=== PATIENT | female | born 1950 | race African-American/Black ===

== ENCOUNTER 2017-07-16 08:58 | Outpatient (POV) | payer MEDICARE, MEDICAID, SELFPAY | END 2017-07-16 13:56 | disposition home or self-care (01) | PROVIDERS: Visit Provider Podiatrist | DX: B35.1 Tinea unguium (principal); L60.2 Onychogryphosis | CPT/HCPCS: 99212; G0127 ==

== ENCOUNTER → 2017-11-14 07:59 | Outpatient (CLI) | payer MEDICARE, MEDICAID, SELFPAY ==
--- NOTE | 2017-11-14 08:10 | CA_ITS ---
PROCEDURE: 2-D M-mode and color Doppler study INDICATIONS FOR THE TEST: Chest pain COPD Heart Murmur+ Tobacco Smoking Palpitations Fatigue Syncope Edema+ Hypertension Diabetes Mellitus Rheumatic Fever SOB+FRANKLIN Obesity Hyperlipidemia Family History HD Additional History PATIENT INFORMATION HEIGHT:67 WEIGHT:220 GENDER: Female B/P:111/68 2-D/M-MODE INTERPRETATION: 2-D MEASUREMENTS OBSERVED VALUES IN CMS Right Ventricular Dimension (RVDd) 1.8 Interventricular Septum (Thickness)(IVsd) 1.0 Left Ventricular Internal Dimensions(LVIDd) 4.9 Left Ventricular Posterior Wall (Thickness)(LVPWd) 1.1 Aortic Root 3.7 Aortic Cusp Separation 2.2 Left Atrial Dimensions (LAD) 3.6 2D 1. Technically difficult study because of the patient's factor and poor acoustic windows 2. The left atrium is mildly enlarged, left ventricle is normal size, left ventricle wall thickness is upper limit of the normal, there is preserved left ventricular systolic function, visually estimated ejection fraction 55% with no obvious regional wall motion abnormality. 3. The right atrium and right ventricle are relatively normal size and function. 4. The aortic valve is minimally thickened and fibrosed. 5. The mitral and tricuspid valvular grossly normal. 6. No significant pericardial effusion noted 7. The pulmonic valve is poorly visualized. DOPPLER INTERROGATION: Doppler interrogation of the aortic, mitral and tricuspid valvular presence of mild mitral and tricuspid regurgitation, calculated right ventricular systolic pressure is 51 mmHg consistent with moderate pulmonary hypertension, grade 1 diastolic dysfunction seen with tissue Doppler evidence of raised left atrial pressure. CONCLUSION: 1. Technically difficult study because of the patient's factor and poor acoustic windows 2. Mildly enlarged left atrium, normal left ventricular size, visually estimated ejection fraction 55% with no obvious regional wall motion abnormality, grade 1 diastolic dysfunction seen with tissue Doppler evidence of raised left atrial pressure. 3. Mild mitral and tricuspid regurgitation, calculated right ventricular systolic pressure is 51 mmHg consistent with moderate pulmonary hypertension. 4. No significant pericardial effusion noted.
[2017-11-14 08:56] LABS: Microscopic, Urine URINE MICROSCOPIC (MICROSCOPIC)
[2017-11-14 09:15] LABS: Basophils % 0.5 % (0.1-2.0); Eosinophils # 0.5 K/mm3 (0.0-0.4); Eosinophils % 7.6 % (0.1-12.0); Hematocrit 40.3 % (37.0-47.0); Hemoglobin 12.4 g/dL (12.2-16.2); Lymphocytes # 2.3 K/mm3 (0.7-4.5); Lymphocytes % 33.5 K/mm3 (10-50); Mean Corpuscular HGB Conc 30.8 g/dL (31.8-35.4); Mean Corpuscular Hemoglobin 27.3 pg (27.0-31.2); Mean Corpuscular Volume 88.7 fl (81-99); Mean Platelet Volume 8.1 fl (7.4-10.4); Monocytes # 0.4 K/mm3 (0.1-1.0); Monocytes % 5.9 % (1.7-9.3); Neutrophils # 3.6 K/mm3 (1.8-7.8); Neutrophils % 52.5 % (37.0-80.0); Platelet Count 330 K/mm3 (142-424); Red Blood Count 4.55 M/mm3 (4.20-5.40); Red Cell Distribution Width 13.7 % (11.5-17.5); White Blood Count 6.8 K/mm3 (4.8-10.8)
[2017-11-14 10:38] LABS: Appearance,Urine SL CLOUDY (Clear); Bilirubin,Urine Negative (Negative); Blood, Urine Negative (Negative); Color,Urine YELLOW (Yellow); Glucose,Urine (UA) Negative (Negative); Ketones,Urine Negative (Negative); Leukocyte Esterase,Urine 1+ (Negative); Nitrate,Urine Negative (Negative); PH,Urine 5.5 (5.0-8.5); Protein,Urine Negative (Negative); Urobilinogen,Urine 0.2 EU/dl (0.2)
[2017-11-14 10:43] LABS: Alanine Aminotransferase 17 U/L (12-78); Albumin Level 3.5 gm/dL (3.4-5.0); Albumin/Globulin Ratio 0.8 (1.1-1.8); Alkaline Phosphatase 100 U/L (46-116); Anion Gap 11.8 mEq/L (5-15); Aspartate Amino Transferase 16 U/L (15-37); Bilirubin,Total 0.2 mg/dL (0.2-1.0); Blood Urea Nitrogen 13 mg/dL (7-18); Calcium 9.1 mg/dL (8.5-10.1); Carbon Dioxide 30 mmol/L (21.0-32.0); Chloride 105 mmol/L (98-107); Chol/HDL Ratio 2.7 (1-3.5); Cholesterol 134 mg/dL (140-200); Creatinine,Serum 0.98 mg/dL (0.55-1.02); Estimated Glomerular Filt Rate 57 ml/min (>60); GFR (African American) 69 ML/MIN (>60); Globulin 4.6 gm/dl (1.3-3.2); Glucose 100 mg/dL (74-106); HDL Cholesterol 49 mg/dL (29-89); Hemoglobin A1C 6.1 % (0.0-7.0); LDL Cholesterol 68 mg/dL (0-130); Potassium 3.8 mmoL/L (3.5-5.1); Sodium 143 mmol/L (136-145); Thyroid Stimulating Hormone 2.45 uIU/ml (0.358-3.740); Total Protein,Serum 8.1 gm/dL (6.4-8.2); Triglycerides 87 mg/dL (30-200); VLDL Cholesterol 17 mg/dL (0-40)
[2017-11-14 10:52] LABS: Bacteria,Urine 1+ /lpf
== END ==
PROVIDERS: PCP Internal Medicine Adolescent Medicine; Visit Provider Nurse Practitioner Family
DX: R01.1 Cardiac murmur, unspecified (principal); I10 Essential (primary) hypertension; R73.09 Other abnormal glucose; R60.9 Edema, unspecified; R82.90 Unspecified abnormal findings in urine
CPT/HCPCS: 36415; 80053; 80061; 81001; 83036; 84443; 85025; 87086; 87088; 87186; 93306

== ENCOUNTER → 2018-05-06 10:36 | Outpatient (CLI) | payer MEDICARE, MEDICAID, SELFPAY ==
[2018-05-06 11:13] LABS: Basophils % 0.5 % (0.1-2.0); Eosinophils # 0.3 K/mm3 (0.0-0.4); Eosinophils % 4.6 % (0.1-12.0); Hematocrit 45.7 % (37.0-47.0); Hemoglobin 14.4 g/dL (12.2-16.2); Lymphocytes # 2.1 K/mm3 (0.7-4.5); Lymphocytes % 36.3 K/mm3 (10-50); Mean Corpuscular HGB Conc 31.6 g/dL (31.8-35.4); Mean Corpuscular Hemoglobin 27.1 pg (27.0-31.2); Mean Corpuscular Volume 85.7 fl (81-99); Mean Platelet Volume 7.4 fl (7.4-10.4); Monocytes # 0.3 K/mm3 (0.1-1.0); Monocytes % 5.9 % (1.7-9.3); Neutrophils % 52.8 % (37.0-80.0); Platelet Count 341 K/mm3 (142-424); Red Blood Count 5.33 M/mm3 (4.20-5.40); Red Cell Distribution Width 13.7 % (11.5-17.5); White Blood Count 5.7 K/mm3 (4.8-10.8)
[2018-05-06 13:17] LABS: Alanine Aminotransferase 87 U/L (12-78); Albumin Level 3.6 gm/dL (3.4-5.0); Albumin/Globulin Ratio 0.8 (1.1-1.8); Alkaline Phosphatase 98 U/L (46-116); Anion Gap 12.4 mEq/L (5-15); Aspartate Amino Transferase 76 U/L (15-37); Bilirubin,Total 0.4 mg/dL (0.2-1.0); Blood Urea Nitrogen 11 mg/dL (7-18); Calcium 9.7 mg/dL (8.5-10.1); Carbon Dioxide 31 mmol/L (21.0-32.0); Chloride 101 mmol/L (98-107); Creatinine,Serum 1.26 mg/dL (0.55-1.02); Estimated Glomerular Filt Rate 42 ml/min (>60); GFR (African American) 51 ML/MIN (>60); Globulin 4.5 gm/dl (1.3-3.2); Glucose 125 mg/dL (74-106); Potassium 3.4 mmoL/L (3.5-5.1); Sodium 141 mmol/L (136-145); Thyroid Stimulating Hormone 1.94 uIU/ml (0.358-3.740); Total Protein,Serum 8.1 gm/dL (6.4-8.2)
[2018-05-09 07:16] LABS: Hep A Ab, IgM Negative (Negative); Hepatitis B Core Antibody IgM Negative (Negative); Hepatitis B Surface Antigen Negative (Negative)
[2018-05-09 08:35] LABS: Hepatitis C Antibody <0.1 s/co ratio (0.0-0.9)
== END ==
PROVIDERS: PCP Nurse Practitioner Family; Visit Provider Nurse Practitioner Family
DX: R73.09 Other abnormal glucose (principal); R19.7 Diarrhea, unspecified; R74.8 Abnormal levels of other serum enzymes; R94.5 Abnormal results of liver function studies
CPT/HCPCS: 36415; 80053; 80074; 84443; 85025

== ENCOUNTER → 2018-05-14 09:13 | Outpatient (CLI) | payer MEDICARE, MEDICAID, SELFPAY ==
--- NOTE | 2018-05-14 09:18 | US_ITS ---
US abdomen limited History:Elevated liver enzymes Ordering Physician:Toshia Smith Patient Age: 67 years Comparison:... * Findings: Pancreas:Unremarkable. No obvious mass or abnormal fluid collection. No ductal dilatation Liver:There is generalized increased echogenicity of the liver consistent with hepatic steatosis. There is appropriate direction the portal blood flow. Common bile duct is normal at 6 mm. Right Kidney:Unremarkable. Normal size and echogenicity. No hydronephrosis Gallbladder:No gallstones, gallbladder wall thickening, pericholecystic fluid, or biliary dilatation. Impression: Fatty liver otherwise negative right upper quadrant ultrasound
== END ==
PROVIDERS: PCP Internal Medicine Adolescent Medicine; Visit Provider Nurse Practitioner Family
DX: R74.8 Abnormal levels of other serum enzymes (principal)
CPT/HCPCS: 76705

== ENCOUNTER 2018-06-17 13:32 | Inpatient (IN) ==
[2018-06-17 17:22] LABS: Basophils % 0.4 % (0.1-2.0); Eosinophils # 0.2 K/mm3 (0.0-0.4); Eosinophils % 2.1 % (0.1-12.0); Hematocrit 46.9 % (37.0-47.0); Hemoglobin 15.2 g/dL (12.2-16.2); Lymphocytes # 2.1 K/mm3 (0.7-4.5); Lymphocytes % 18.2 K/mm3 (10-50); Mean Corpuscular HGB Conc 32.5 g/dL (31.8-35.4); Mean Corpuscular Hemoglobin 27.8 pg (27.0-31.2); Mean Corpuscular Volume 85.5 fl (81-99); Mean Platelet Volume 9.6 fl (7.4-10.4); Monocytes # 0.9 K/mm3 (0.1-1.0); Monocytes % 7.6 % (1.7-9.3); Neutrophils # 8.2 K/mm3 (1.8-7.8); Neutrophils % 71.9 % (37.0-80.0); Platelet Count 402 K/mm3 (142-424); Red Blood Count 5.49 M/mm3 (4.20-5.40); Red Cell Distribution Width 14.2 % (11.5-17.5); White Blood Count 11.5 K/mm3 (4.8-10.8)
[2018-06-17 20:48] LABS: Albumin Level 3.9 gm/dL (3.4-5.0); Albumin/Globulin Ratio 0.7 (1.1-1.8); Anion Gap 14.3 mEq/L (5-15); Bilirubin,Total 0.6 mg/dL (0.2-1.0); Calcium 10.2 mg/dL (8.5-10.1); Globulin 5.4 gm/dl (1.3-3.2); Potassium 3.3 mmoL/L (3.5-5.1); Total Protein,Serum 9.3 gm/dL (6.4-8.2)
--- NOTE | 2018-06-17 21:57 | History & Physical Report ---
*Admission Date: 06/17/18 *Chief complaint: vomiting *History of present illness: 67 yr old female admitted today from clinic after complaints of ongoing nausea with vomiting and suspected dehydration. I initially saw her in clinic about 5 weeks ago with symptoms of an upper respiratory infection and diarrhea. Labs at that time revealed mildly elevated liver enzymes, hepatitis panel was negative and right upper quadrant ultrasound showed fatty liver disease. She returned to clinic last week with new onset nausea, vomiting and intermittent loose stools. She had lost about 10 pounds over the 4-5 week span between her visits. Follow-up labs were done and CT abdomen/pelvis was arranged and was to be done tomorrow as an outpatient. I was contacted by her care providers at our local [facility] program and they reported increased nausea, vomiting and concern that she would not be able to keep PO contrast down for her CT tomorrow. Labs done last week revealed mild electrolyte abnormalities and dehydration and with worsening symptoms she was admitted on the basis of dehydration. During interview today, she reports that her symptoms of nausea and vomiting got worse over the past 48 hours. Denies diarrhea. No visible blood in output. She is difficult to get a history from due to some mild cognitive impairment that is baseline for her. I had given her a prescription for zofran last week and she reports no improvement with that over the weekend. [facility] History I have reviewed the patient's past medical history: Yes Medical History: Reports:: Cancer (Breast), Hypertension Denies:: Diabetes Mellitus Type 1, Diabetes Mellitus Type 2 Laterality Cases: Right: Mastectomy Other Surgeries: Yes: Cancer Surgery, Hysterectomy-Partial, Tubal Ligation, Other Fractures: Yes (Left lower leg and foot) - *Social History Smoking Status: Former smoker # Packs/Day (cigarettes): 0 #Yrs smoked (if former smoker): 0 Alcohol Intake: never Alcohol Intake Frequency:: other Substance Use Type: denies use Occupational Status: other Housing: house Household Members: none Comment: attends Adult Day during the day Sunday-Sunday - Psychiatric History Expresses thoughts of harming self/others: None Suicide Plan Description: No Plan Pschychiatric History:: Reports:: Schizophrenia *Family Hx:: Unable to obtain Review of Systems - Review of Systems Review of systems:: pertinent systems reviewed and negative unless documented below - Constitutional Reports anorexia, Reports malaise, Denies fever(s), Denies headache(s) - ENT Denies sore throat, Denies dizziness - *Cardiovascular Denies chest pain, Denies shortness of breath, Denies leg swelling - *Respiratory Denies cough, Denies shortness of breath - *Gastrointestinal Reports loose stools, Reports nausea, Reports vomiting, Denies abdominal pain - *Genitourinary Denies painful urination - *Musculoskeletal Reports joint pain Comments: chronic left lower leg pain after fracture - Integumentary/Breasts Denies rash - *Neurologic Denies behavioral changes, Denies dizziness, Denies headache(s) - Psychiatric Comments: history of hallucinations/psychiatric disease on chronic treatment - Endocrine Denies excessive sweating, Denies increased urination Meds Home Medications Medication Instructions Recorded Confirmed Type amlodipine 5 mg tablet PO 30 Days #30 11/13/17 History atorvastatin 10 mg tablet PO 30 Days #30 11/13/17 History fluticasone 50 mcg/actuation nasal INTRANASAL 30 Days #16 11/13/17 History spray,suspension lisinopril 10 PO 30 Days #30 11/13/17 History mg-hydrochlorothiazide 12.5 mg tablet olanzapine 10 mg tablet PO 30 Days #30 11/13/17 History sertraline 100 mg tablet PO 30 Days #30 11/13/17 History trazodone 150 mg tablet PO 30 Days #30 11/13/17 History Allergies Allergy/AdvReac Type Severity Reaction Status Date / Time No Known Allergies Allergy Unverified 07/31/17 14:54 Exam Vital signs and Labs for Last 24 Hours: Temp Pulse Resp BP Pulse Ox 97.9 F 96 H 22 115/73 97 06/17/18 19:53 06/17/18 19:53 06/17/18 19:53 06/17/18 19:53 06/17/18 19:53 Laboratory Results - last 24 hr 06/17/18 17:10: WBC 11.5 H, RBC 5.49 H, Hgb 15.2, Hct 46.9, MCV 85.5, MCH 27.8, MCHC 32.5, RDW 14.2, Plt Count 402, MPV 9.6, Neut % (Auto) 71.9, Lymph % (Auto) 18.2, [place] % (Auto) 7.6, Eos % (Auto) 2.1, Baso % (Auto) 0.4, Neut # (Auto) 8.2 H, Lymph # (Auto) 2.1, [place] # (Auto) 0.9, Eos # (Auto) 0.2, Baso # (Auto) 0.0 06/17/18 20:25: Sodium 135 L, Potassium 3.3 L, Chloride 91 L, Carbon Dioxide 33 H, Anion Gap 14.3, BUN 82 H, Creatinine 2.41 H, Estimated Creat Clear 36, Estimated GFR 20 L, Est GFR ( Amer) 24 L, Glucose 120 H, Calcium 10.2 H, Total Bilirubin 0.6, AST 30, ALT 44, Alkaline Phosphatase 81, Total Protein 9.3 H, Albumin 3.9, Globulin 5.4 H, Albumin/Globulin Ratio 0.7 L I & O for Last 24 hours: Intake & Output 06/15/18 06/16/18 06/17/18 06/18/18 12:59 11:59 11:59 11:59 Intake Total 280 / 280 Balance 280 / 280 Weight 217 lb 9 oz - Constitutional no acute distress, cooperative - *Routine HEENT Exam Head: Present: normocephalic Eye: Present: EOMI, conjunctivae pink ENT: Present: mucous membranes dry, oropharynx clear, nares patent - *Routine Neck Exam Present: supple. Absent: tenderness - *Routine Respiratory Exam Present: CTA bilaterally - *Routine Cardiovascular Exam Present: RRR, murmur - *Routine Abdominal Exam Present: soft. Absent: tenderness, distended, guarding (hyperactive bowel sounds) - *Routine Extremities Exam Present: pulses intact, normal capillary refill. Absent: edema - *Routine Skin Exam Present: intact, dry Comments: variable skin pigment on extremities but at baseline for patient - *Routine Neurological Exam Present: alert, moving all extremities, normal tone. Absent: motor deficit, altered mental status speech is difficult to understand at times but at baseline for patient. Oriented to person, place, situation but not the date Assessment and Plan (1) Dehydration Current visit: Yes Status: Acute Category: Medical Code(s): E86.0 - Dehydration replace with LR at 200ml/hr. Zofran as needed and clears as tolerated until midnight (2) ALETHA (acute kidney injury) Current visit: Yes Status: Acute Category: Medical Code(s): N17.9 - Acute kidney failure, unspecified appears pre-renal. Recommend hydration overnight, hold any nephrotoxic medications, trend creatinine. Urinalysis is pending (3) Nausea and vomiting Current visit: Yes Status: Acute Category: Medical Code(s): R11.2 - Nausea with vomiting, unspecified CT abd/pelvis without contrast with several nonspecific findings. Recent gallbladder US was negative but will repeat in AM given distention and thickening on CT scan. Liver enzymes previously elevated but normal now. Recent Hepatitis panel was negative. IV PPI tonight. (4) Leukocytosis Current visit: Yes Status: Acute Category: Medical Code(s): D72.829 - Elevated white blood cell count, unspecified Mildly elevated. Blood and urine cultures pending. (5) Weight loss Current visit: Yes Status: Acute Category: Medical Code(s): R63.4 - Abnormal weight loss Approximately 20 pounds, difficult to discern time line. Needs screening endoscopies which were arranged earlier this year but never completed. Can be done as an outpatient. TSH is normal - Assessment and plan all Dx Assessment and Plan for all problems:: IVONNE melendez for DVT/VTE prevention IV PPI, transition to oral when tolerating PO intake
[2018-06-18 04:55] LABS: Blood, Urine TRACE-L (Negative); Color,Urine YELLOW (Yellow); Glucose,Urine (UA) Negative (Negative); Ketones,Urine TRACE (Negative); Leukocyte Esterase,Urine 2+ (Negative); Microscopic, Urine URINE MICROSCOPIC (MICROSCOPIC); PH,Urine 5.5 (5.0-8.5); Protein,Urine Negative (Negative); Specific Gravity, Urine 1.025 (1.005-1.030); Urobilinogen,Urine 0.2 EU/dl (0.2)
[2018-06-18 04:59] LABS: Appearance,Urine Cloudy (Clear); Bilirubin,Urine Negative (Negative)
[2018-06-18 05:47] LABS: Amorphous Sediment,Urine 2+ /lpf; Bacteria,Urine 2+ /lpf; Mucus,Urine 1+ /lpf; WBC,Urine 20-50 #/hpf (0-3)
[2018-06-18 06:13] LABS: Anion Gap 11.3 mEq/L (5-15); Potassium 3.3 mmoL/L (3.5-5.1)
[2018-06-18 06:23] LABS: Calcium 9.2 mg/dL (8.5-10.1)
--- NOTE | 2018-06-18 07:40 | Pharmacy Consult Notes ---
[facility] Pharmacy VTE Monitoring - Patient Demographics Admission date: 06/17/18 Report Date: 06/18/18 Time: 07:40 Allergies/Adverse Reactions: Patient Allergies No Known Allergies Allergy (Unverified 07/31/17 14:54) Height: 1.83 m Weight: 101.236 kg Patient Problems: Current Active Problems Dehydration (Acute) ALETHA (acute kidney injury) (Acute) Nausea and vomiting (Acute) Leukocytosis (Acute) Weight loss (Acute) - VTE Risk Labs: VTE Related Lab Results Hgb 15.2 g/dL (12.2-16.2) 06/17/18 17:10 Hct 46.9 % (37.0-47.0) 06/17/18 17:10 Plt Count 402 K/mm3 (142-424) 06/17/18 17:10 BUN 77 mg/dL (7-18) H 06/18/18 05:45 Creatinine 1.89 mg/dL (0.55-1.02) H D 06/18/18 05:45 Estimated Creat Clear 47 mL/min (0-300) 06/18/18 05:45 Was VTE Risk Assessment Performed: Yes VTE Score: 3 VTE Risk Level: Low Risk - Prophylaxis VTE Prophylaxis Ordered?: Yes Types of VTE Prophylaxis: TEDS Knee High Location of Applied Device: Bilateral Lower Extremeties - VTE Diagnosis Confirmed Treatment or plan recommended: Continue Current Treatment
--- NOTE | 2018-06-18 08:03 | Progress Note ---
Internal Medicine - PN: Subj *Date: 06/18/18 *Time: 08:20 Interval history: Vitals stable overnight. N.p.o. at midnight for ultrasound today. Slight improvement in labs this morning with decreased BUN and creatinine. Reports one episode of emesis, however patient not a good historian. Difficult to attain ROS and History, minimally verbal this morning. Exam Vital signs and Labs for Last 24 Hours: Temp Pulse Resp BP Pulse Ox 97.9 F 93 H 15 94/50 L 99 06/18/18 07:46 06/18/18 07:46 06/18/18 07:46 06/18/18 07:46 06/18/18 07:46 Laboratory Results - last 24 hr 06/17/18 17:10: WBC 11.5 H, RBC 5.49 H, Hgb 15.2, Hct 46.9, MCV 85.5, MCH 27.8, MCHC 32.5, RDW 14.2, Plt Count 402, MPV 9.6, Neut % (Auto) 71.9, Lymph % (Auto) 18.2, [place] % (Auto) 7.6, Eos % (Auto) 2.1, Baso % (Auto) 0.4, Neut # (Auto) 8.2 H, Lymph # (Auto) 2.1, [place] # (Auto) 0.9, Eos # (Auto) 0.2, Baso # (Auto) 0.0 06/17/18 20:25: Sodium 135 L, Potassium 3.3 L, Chloride 91 L, Carbon Dioxide 33 H, Anion Gap 14.3, BUN 82 H, Creatinine 2.41 H, Estimated Creat Clear 36, Estimated GFR 20 L, Est GFR ( Amer) 24 L, Glucose 120 H, Calcium 10.2 H, Total Bilirubin 0.6, AST 30, ALT 44, Alkaline Phosphatase 81, Total Protein 9.3 H, Albumin 3.9, Globulin 5.4 H, Albumin/Globulin Ratio 0.7 L 06/18/18 04:30: Urine Color Yellow, Urine Appearance Cloudy, Urine pH 5.5, Ur Specific [place] 1.025, Urine Protein Negative, Urine Glucose (UA) Negative, Urine Ketones Trace, Urine Blood Trace-l, Urine Nitrate Negative, Urine Bilirubin Negative, Urine Urobilinogen 0.2, Ur Leukocyte Esterase 2+ A, Urine RBC 5-10, Urine WBC 20-50, Ur Squamous Epith Cells 3-5, Amorphous Sediment 2+, Urine Bacteria 2+, Urine Mucus 1+ 06/18/18 05:45: Sodium 137, Potassium 3.3 L, Chloride 95 L, Carbon Dioxide 34 H, Anion Gap 11.3, BUN 77 H, Creatinine 1.89 H D, Estimated Creat Clear 47, Estimated GFR 27 L, Est GFR ( Amer) 32 L D, Glucose 106, Calcium 9.2 I & O for Last 24 hours: Intake & Output 06/16/18 06/16/18 06/17/18 06/18/18 00:59 23:59 23:59 23:59 Intake Total 310 / 310 193 / 193 Output Total / Balance 310 / 310 1905 / 1905 Weight 98.685 kg 101.236 kg - *Routine HEENT Exam Head: Present: normocephalic, atraumatic Eye: Present: PERRL ENT: Present: mucous membranes moist Comments: poor dentition - *Routine Neck Exam Present: supple, full ROM - *Routine Respiratory Exam Present: CTA bilaterally. Absent: prolonged expiratory phase, wheezes, crackles - *Routine Cardiovascular Exam Present: RRR, Normal S1, Normal S2 - *Routine Abdominal Exam Present: soft, normoactive bowel sounds, tenderness (minimal epigastric) - *Routine Rectal Exam Patient deferred: visual exam - *Routine Exam Patient deferred: external exam - *Routine Extremities Exam Absent: cyanosis, clubbing, edema - *Routine Skin Exam Present: intact. Absent: cyanosis, erythema - *Routine Neurological Exam Present: alert Assessment and Plan (1) Dehydration Current visit: Yes Status: Acute Category: Medical Code(s): E86.0 - Dehydration (2) ALETHA (acute kidney injury) Current visit: Yes Status: Acute Category: Medical Code(s): N17.9 - Acute kidney failure, unspecified improving with fluid rehydration - continue hydration - Am LAbs (3) Nausea and vomiting Current visit: Yes Status: Acute Category: Medical Code(s): R11.2 - Nausea with vomiting, unspecified stable, PRN treatment as ordered (4) Leukocytosis Current visit: Yes Status: Acute Category: Medical Code(s): D72.829 - Elevated white blood cell count, unspecified (5) Weight loss Current visit: Yes Status: Acute Category: Medical Code(s): R63.4 - Abnormal weight loss - Assessment and plan all Dx Assessment and Plan for all problems:: US adn CT with no gall bladder obstruction. Monitor labs in moring. If improved PO and Kidney function, possible DC home tomorrow. Continues to require inpatient management
[2018-06-19 06:31] LABS: Anion Gap 11.4 mEq/L (5-15); Calcium 9.1 mg/dL (8.5-10.1); Potassium 3.4 mmoL/L (3.5-5.1)
--- NOTE | 2018-06-19 08:20 | Progress Note ---
Internal Medicine - PN: Subj *Date: 06/19/18 *Time: 08:18 Interval history: Patient states that she has a hard time swallowing because her mouth hurts. Otherwise her nurses report no vomiting or diarrhea. Patient denies pain anywhere except her mouth. Exam Vital signs and Labs for Last 24 Hours: Temp Pulse Resp BP Pulse Ox 98.0 F 81 17 117/57 L 99 06/19/18 07:33 06/19/18 07:33 06/19/18 07:33 06/19/18 07:33 06/19/18 07:33 Laboratory Results - last 24 hr 06/19/18 05:55: Sodium 142, Potassium 3.4 L, Chloride 102, Carbon Dioxide 32, Anion Gap 11.4, BUN 36 H D, Creatinine 1.18 H D, Estimated Creat Clear 76, Estimated GFR 46 L, Est GFR ( Amer) 55 L D, Glucose 78, Calcium 9.1 I & O for Last 24 hours: Intake & Output 06/16/18 06/17/18 06/18/18 06/19/18 11:59 11:59 11:59 11:59 Intake Total 2246 / 2246 4232 / 4232 Output Total 30 Balance 2216 / 2216 4232 / 4232 Weight 223 lb 3 oz 227 lb 6 oz Microbiology Reports for the Last 24 Hours: Microbiology 06/18/18 04:30 Urine,Clean Catch Urine Culture - Preliminary NO GROWTH AFTER 24 HOURS Narrative: Patient is alert. Pleasant. Does respond to commands. Oropharynx has minimal white coating on the tongue. Lungs have good air movement in the anterior [place]. Heart rate regular without murmurs. Abdomen soft, nontender, nondistended. No pain. No extremity clubbing or cyanosis. Assessment and Plan (1) Dehydration Current visit: Yes Status: Acute Category: Medical Code(s): E86.0 - Dehydration (2) ALETHA (acute kidney injury) Current visit: Yes Status: Acute Category: Medical Code(s): N17.9 - Acute kidney failure, unspecified (3) Nausea and vomiting Current visit: Yes Status: Acute Category: Medical Code(s): R11.2 - Nausea with vomiting, unspecified (4) Leukocytosis Current visit: Yes Status: Acute Category: Medical Code(s): D72.829 - Elevated white blood cell count, unspecified (5) Weight loss Current visit: Yes Status: Acute Category: Medical Code(s): R63.4 - Abnormal weight loss - Assessment and plan all Dx Assessment and Plan for all problems:: Patient's labs have normalized this morning. We will feed low-fat diet today. See how this is tolerated for breakfast. If she vomits again we may consider intervention for the abnormal gallbladder ultrasound and have a surgery consult. If tolerates diet well consider discharge home today.
--- NOTE | 2018-06-19 13:33 | Consult Report ---
*Admission Date: 06/17/18 *Chief complaint: Vomiting *History of present illness: Patient is a 67-year-old -[place] female. She is a poor historian and history is somewhat difficult to obtain secondary to cognitive impairment. She was admitted a couple days ago for vomiting and dehydration. She has had approximately a couple weeks of abdominal pain and vomiting as well as some weight loss. She did have previous check of liver function tests which showed some abnormality as an outpatient. She had a gallbladder ultrasound which was negative for gallstones. She had a CT scan of the abdomen pelvis without any contrast whatsoever which revealed no acute findings. Patient was given a diet this morning and had some vomiting. Review of Systems - Review of Systems Review of systems:: unable to obtain - *Neurologic Denies behavioral changes, Denies dizziness, Denies headache(s), Denies dizziness [facility] History Medical History: Reports:: Cancer (Breast), Hypertension Denies:: Diabetes Mellitus Type 1, Diabetes Mellitus Type 2 Laterality Cases: Right: Mastectomy Other Surgeries: Yes: No Previous Surgery, Cancer Surgery, Hysterectomy-Partial, Tubal Ligation, Other Fractures: Yes (Left lower leg and foot) - *Social History Smoking Status: Former smoker # Packs/Day (cigarettes): 0 #Yrs smoked (if former smoker): 0 Alcohol Intake: never Alcohol Intake Frequency:: other Substance Use Type: denies use Occupational Status: other Housing: house Household Members: none - Psychiatric History Expresses thoughts of harming self/others: None Suicide Plan Description: No Plan Pschychiatric History:: Reports:: Schizophrenia *Family Hx:: Unable to obtain Meds Home Medications Medication Instructions Recorded Confirmed Type atorvastatin 10 mg tablet 10 mg PO HS 30 Days #11/13/17 06/18/18 History lisinopril 10 1 tab PO DAILY 30 Days #11/13/17 06/18/18 History mg-hydrochlorothiazide 12.5 mg tablet olanzapine 10 mg tablet 10 mg PO DAILY 30 Days #11/13/17 06/18/18 History sertraline 100 mg tablet 100 mg PO DAILY 30 Days #30 11/13/17 06/18/18 History trazodone 150 mg tablet 150 mg PO HS 30 Days #11/13/17 06/18/18 History ARIPiprazole [Aripiprazole] 2 mg PO DAILY 06/18/18 06/18/18 History Cetirizine HCl 10 mg PO HS 06/18/18 06/18/18 History Ondansetron HCl [Ondansetron 4mg 4 mg PO Q8HP PRN 06/18/18 06/18/18 History Tablet] Allergies Allergy/AdvReac Type Severity Reaction Status Date / Time No Known Allergies Allergy Unverified 07/31/17 14:54 Exam Vital signs and Labs for Last 24 Hours: Temp Pulse Resp BP Pulse Ox 98.0 F 81 18 117/57 L 99 06/19/18 07:33 06/19/18 07:33 06/19/18 07:40 06/19/18 07:33 06/19/18 07:33 Laboratory Results - last 24 hr 06/18/18 04:30: Urine Color Yellow, Urine Appearance Cloudy, Urine pH 5.5, Ur Specific [place] 1.025, Urine Protein Negative, Urine Glucose (UA) Negative, Urine Ketones Trace, Urine Blood Trace-l, Urine Nitrate Negative, Urine Bilirubin Negative, Urine Urobilinogen 0.2, Ur Leukocyte Esterase 2+ A, Urine RBC 5-10, Urine WBC 20-50, Ur Squamous Epith Cells 3-5, Amorphous Sediment 2+, Urine Bacteria 2+, Urine Mucus 1+ 06/19/18 05:55: Sodium 142, Potassium 3.4 L, Chloride 102, Carbon Dioxide 32, Anion Gap 11.4, BUN 36 H D, Creatinine 1.18 H D, Estimated Creat Clear 76, Estimated GFR 46 L, Est GFR ( Amer) 55 L D, Glucose 78, Calcium 9.1 I & O for Last 24 hours: Intake & Output 06/17/18 06/18/18 06/19/18 06/20/18 11:59 11:59 11:59 11:59 Intake Total 2246 / 2246 4472 / 4472 Output Total Balance 2216 / 2216 4472 / 4472 Weight 223 lb 3 oz 227 lb 6 oz Microbiology Reports for the Last 24 Hours: Microbiology 06/18/18 04:30 Urine,Clean Catch Urine Culture - Preliminary Gram Negative Rods - Constitutional no acute distress - *Routine HEENT Exam Head: Present: normocephalic - *Routine Respiratory Exam Present: CTA bilaterally - *Routine Cardiovascular Exam Present: RRR - *Routine Abdominal Exam Present: soft. Absent: tenderness Results - Labs 06/17/18 17:10 06/19/18 05:55 Laboratory Results - last 24 hr 06/18/18 04:30: Urine Color Yellow, Urine Appearance Cloudy, Urine pH 5.5, Ur Specific [place] 1.025, Urine Protein Negative, Urine Glucose (UA) Negative, Urine Ketones Trace, Urine Blood Trace-l, Urine Nitrate Negative, Urine Bilirubin Negative, Urine Urobilinogen 0.2, Ur Leukocyte Esterase 2+ A, Urine RBC 5-10, Urine WBC 20-50, Ur Squamous Epith Cells 3-5, Amorphous Sediment 2+, Urine Bacteria 2+, Urine Mucus 1+ 06/19/18 05:55: Sodium 142, Potassium 3.4 L, Chloride 102, Carbon Dioxide 32, Anion Gap 11.4, BUN 36 H D, Creatinine 1.18 H D, Estimated Creat Clear 76, Estimated GFR 46 L, Est GFR ( Amer) 55 L D, Glucose 78, Calcium 9.1 Assessment and Plan (1) Dehydration Current visit: Yes Status: Acute Category: Medical Code(s): E86.0 - Dehydration (2) ALETHA (acute kidney injury) Current visit: Yes Status: Acute Category: Medical Code(s): N17.9 - Acute kidney failure, unspecified (3) Nausea and vomiting Current visit: Yes Status: Acute Category: Medical Code(s): R11.2 - Nausea with vomiting, unspecified (4) Leukocytosis Current visit: Yes Status: Acute Category: Medical Code(s): D72.829 - Elevated white blood cell count, unspecified (5) Weight loss Current visit: Yes Status: Acute Category: Medical Code(s): R63.4 - Abnormal weight loss - Assessment and plan all Dx Assessment and Plan for all problems:: Unclear as to the etiology of the patient's vomiting. May obtain upper GI series to evaluate for mechanical etiology.
[2018-06-20 06:29] LABS: Anion Gap 11.2 mEq/L (5-15); Calcium 8.7 mg/dL (8.5-10.1); Potassium 3.2 mmoL/L (3.5-5.1)
--- NOTE | 2018-06-20 07:33 | Progress Note ---
Subjective Patient reports: no new complaints Narrative: Patients states she ate some full liquid diet without vomiting. Exam Vital signs and Labs for Last 24 Hours: Temp Pulse Resp BP Pulse Ox 99.0 F 89 18 105/58 L 90 L 06/20/18 04:00 06/20/18 04:00 06/20/18 04:00 06/20/18 04:00 06/20/18 04:00 Laboratory Results - last 24 hr 06/18/18 04:30: Urine Color Yellow, Urine Appearance Cloudy, Urine pH 5.5, Ur Specific [place] 1.025, Urine Protein Negative, Urine Glucose (UA) Negative, Urine Ketones Trace, Urine Blood Trace-l, Urine Nitrate Negative, Urine Bilirubin Negative, Urine Urobilinogen 0.2, Ur Leukocyte Esterase 2+ A, Urine RBC 5-10, Urine WBC 20-50, Ur Squamous Epith Cells 3-5, Amorphous Sediment 2+, Urine Bacteria 2+, Urine Mucus 1+ 06/20/18 05:44: Sodium 140, Potassium 3.2 L, Chloride 102, Carbon Dioxide 30, Anion Gap 11.2, BUN 16 D, Creatinine 0.81 D, Estimated Creat Clear 90, Keri mated GFR 71, Est GFR ( Amer) 86 D, Glucose 79, Calcium 8.7 I & O for Last 24 hours: Intake & Output 06/17/18 06/18/18 06/19/18 06/20/18 11:59 11:59 11:59 11:59 Intake Total 2246 / 2246 4472 / 4472 4527 / 4527 Output Total 30 / 30 Balance 2216 / 2216 4472 / 4472 4527 / 4527 Weight 223 lb 3 oz 227 lb 6 oz 227 lb 8 oz Microbiology Reports for the Last 24 Hours: Microbiology 06/18/18 04:30 Urine,Clean Catch Urine Culture - Final Escherichia coli 06/17/18 17:10 Blood Blood Culture - Preliminary NO GROWTH AFTER 48 HOURS 06/17/18 17:10 Blood Blood Culture - Preliminary NO GROWTH AFTER 48 HOURS - *Routine Abdominal Exam Present: soft. Absent: tenderness Progress Note: A&P (1) Dehydration Status: Acute Current Visit: Yes (2) ALETHA (acute kidney injury) Status: Acute Current Visit: Yes (3) Nausea and vomiting Status: Acute Current Visit: Yes (4) Leukocytosis Status: Acute Current Visit: Yes (5) Weight loss Status: Acute Current Visit: Yes Assessment and Plan for All Diagnoses:: NPO for UGI today.
--- NOTE | 2018-06-20 08:29 | Progress Note ---
Internal Medicine - PN: Subj *Date: 06/20/18 *Time: 07:45 Interval history: Patient states "I'm not doing too good. My mouth hurts." Denies any other ENT symptoms. Urine culture grew pansensitive E. Coli. She reports urinary frequency. Denies dysuria/hematuria. Continues to have generalized abdominal pain, nausea and vomiting. No diarrhea. Alert and oriented with intellectual impairment. Lips severely chapped, oral membranes/tongue without erythema or lesions. Rate and rhythm regular. Trace LE edema. Anterior lung [place] are clear. Abdomen soft and nontender, bowel sounds normoactive Exam Vital signs and Labs for Last 24 Hours: Temp Pulse Resp BP Pulse Ox 99.0 F 89 18 105/58 L 90 L 06/20/18 04:00 06/20/18 04:00 06/20/18 04:00 06/20/18 04:00 06/20/18 04:00 Laboratory Results - last 24 hr 06/18/18 04:30: Urine Color Yellow, Urine Appearance Cloudy, Urine pH 5.5, Ur Specific [place] 1.025, Urine Protein Negative, Urine Glucose (UA) Negative, Urine Ketones Trace, Urine Blood Trace-l, Urine Nitrate Negative, Urine Bilirubin Negative, Urine Urobilinogen 0.2, Ur Leukocyte Esterase 2+ A, Urine RBC 5-10, Urine WBC 20-50, Ur Squamous Epith Cells 3-5, Amorphous Sediment 2+, Urine Bacteria 2+, Urine Mucus 1+ 06/20/18 05:44: Sodium 140, Potassium 3.2 L, Chloride 102, Carbon Dioxide 30, Anion Gap 11.2, BUN 16 D, Creatinine 0.81 D, Estimated Creat Clear 90, Estimated GFR 71, Est GFR ( Amer) 86 D, Glucose 79, Calcium 8.7 I & O for Last 24 hours: Intake & Output 06/17/18 06/18/18 06/19/18 06/20/18 11:59 11:59 11:59 11:59 Intake Total 2246 / 2246 4472 / 4472 4527 / 4527 Output Total 30 Balance 2216 / 2216 4472 / 4472 4527 / 4527 Weight 223 lb 3 oz 227 lb 6 oz 227 lb 8 oz Microbiology Reports for the Last 24 Hours: Microbiology 06/18/18 04:30 Urine,Clean Catch Urine Culture - Final Escherichia coli 06/17/18 17:10 Blood Blood Culture - Preliminary NO GROWTH AFTER 48 HOURS 06/17/18 17:10 Blood Blood Culture - Preliminary NO GROWTH AFTER 48 HOURS Assessment and Plan (1) Dehydration Current visit: Yes Status: Acute Category: Medical Code(s): E86.0 - Dehydration (2) ALETHA (acute kidney injury) Current visit: Yes Status: Acute Category: Medical Code(s): N17.9 - Acute kidney failure, unspecified (3) Nausea and vomiting Current visit: Yes Status: Acute Category: Medical Code(s): R11.2 - Nausea with vomiting, unspecified (4) Leukocytosis Current visit: Yes Status: Acute Category: Medical Code(s): D72.829 - Elevated white blood cell count, unspecified (5) Weight loss Current visit: Yes Status: Acute Category: Medical Code(s): R63.4 - Abnormal weight loss (6) E. coli UTI Current visit: Yes Status: Acute Category: Medical Code(s): N39.0 - Urinary tract infection, site not specified; B96.20 - Unspecified Escherichia coli [E. coli] as the cause of diseases classified elsewhere - Assessment and plan all Dx Assessment and Plan for all problems:: URine cx revealed UTI which could explain her symptoms. Start ceftriaxone for UTI. Decrease IVF's to 100 ml/hr. Continue zofran PRN. UGI series today. Will advance to clears after completion of UGI. Apply vaseline to lips TID.
--- NOTE | 2018-06-21 08:17 | Progress Note ---
Subjective Narrative: Patient without any distress talking on the phone. Exam Vital signs and Labs for Last 24 Hours: Temp Pulse Resp BP Pulse Ox 98.4 F 95 H 18 107/63 L 96 06/21/18 07:55 06/21/18 07:55 06/21/18 07:55 06/21/18 07:55 06/21/18 07:55 I & O for Last 24 hours: Intake & Output 06/18/18 06/19/18 06/20/18 06/21/18 11:59 11:59 11:59 11:59 Intake Total 2246 / 2246 4472 / 4472 4527 / 4527 2840 / 2840 Output Total 30 / 30 Balance 2216 / 2216 4472 / 4472 4527 / 4527 2840 / 2840 Weight 223 lb 3 oz 227 lb 6 oz 227 lb 8 oz 231 lb 5 oz Microbiology Reports for the Last 24 Hours: Microbiology 06/18/18 04:30 Urine,Clean Catch Urine Culture - Final Escherichia coli - Constitutional no acute distress Progress Note: A&P (1) Dehydration Status: Acute Current Visit: Yes (2) ALETHA (acute kidney injury) Status: Acute Current Visit: Yes (3) Nausea and vomiting Status: Acute Current Visit: Yes (4) Leukocytosis Status: Acute Current Visit: Yes (5) Weight loss Status: Acute Current Visit: Yes (6) E. coli UTI Status: Acute Current Visit: Yes Assessment and Plan for All Diagnoses:: UGI series unremarkable although "limited study". Will advance diet.
--- NOTE | 2018-06-21 09:02 | Discharge Summary ---
General - General Admission date:: 06/19/18 Discharge date: 06/21/18 HPI HPI: 67 yr old female admitted today from clinic after complaints of ongoing nausea with vomiting and suspected dehydration. I initially saw her in clinic about 5 weeks ago with symptoms of an upper respiratory infection and diarrhea. Labs at that time revealed mildly elevated liver enzymes, hepatitis panel was negative and right upper quadrant ultrasound showed fatty liver disease. She returned to clinic last week with new onset nausea, vomiting and intermittent loose stools. She had lost about 10 pounds over the 4-5 week span between her visits. Follow-up labs were done and CT abdomen/pelvis was arranged and was to be done tomorrow as an outpatient. I was contacted by her care providers at our local Adult Day program and they reported increased nausea, vomiting and concern that she would not be able to keep PO contrast down for her CT tomorrow. Labs done last week revealed mild electrolyte abnormalities and dehydration and with worsening symptoms she was admitted on the basis of dehydration. During interview today, she reports that her symptoms of nausea and vomiting got worse over the past 48 hours. Denies diarrhea. No visible blood in output. She is difficult to get a history from due to some mild cognitive impairment that is baseline for her. I had given her a prescription for zofran last week and she reports no improvement with that over the weekend. Hospital Course Hospital Course: Admitted with dehydration, ALETHA, Nausea and vomiting. Aggressive rehydration via IV fluids. No further episodes of emesis during admission. Assessment consisted of abdominal U/S, Abdominal CT, Hepatitis panel, and the only findings were mild distension of gall bladder without stones. As patient had no further episodes, her diet was advanced. She tolerated PO meds adn a regular diet fro 24hrs prior to DC. Met criteria and was medically stable for DC home with continued adult day care services. REmained hemodynamically stable. Kidney function had returned to normal by DC. Objective Vital signs: Temp Pulse Resp BP Pulse Ox 98.4 F 95 H 18 107/63 L 96 06/21/18 07:55 06/21/18 07:55 06/21/18 07:55 06/21/18 07:55 06/21/18 07:55 Narrative: - *Routine HEENT Exam Head: Present: normocephalic, atraumatic Eye: Present: EOMI, PERRL ENT: Present: mucous membranes moist Comments: Edentulous - *Routine Neck Exam Present: supple, full ROM - *Routine Respiratory Exam Present: CTA bilaterally. Absent: prolonged expiratory phase, rales, wheezes - *Routine Cardiovascular Exam Present: RRR, Normal S1, Normal S2. Absent: murmur - *Routine Abdominal Exam Present: soft, normoactive bowel sounds. Absent: tenderness - *Routine Rectal Exam Patient deferred: visual exam - *Routine Exam Patient deferred: external exam - *Routine Extremities Exam Absent: cyanosis, clubbing, edema - *Routine Skin Exam Present: intact. Absent: cyanosis, erythema - *Routine Neurological Exam Present: alert. Absent: altered mental status Results Labs on day of discharge: Preliminary micro results at discharge 06/17/18 17:10 Blood Culture - Preliminary Blood NO GROWTH AFTER 48 HOURS 06/17/18 17:10 Blood Culture - Preliminary Blood NO GROWTH AFTER 48 HOURS DS: Diagnosis - Discharge Diagnosis (1) Dehydration Status: Acute (2) ALETHA (acute kidney injury) Status: Acute Problem details: Resolved (3) Nausea and vomiting Status: Acute Problem details: Further episodes. Outpatient surgical follow- up. (4) Leukocytosis Status: Acute (5) Weight loss Status: Acute (6) E. coli UTI Status: Acute Problem details: Finishing course of Levaquin Discharge Plan - Patient Discharge Instructions Additional Instructions: Nursing Diagnosis: Knowledge Deficit Disease/Condition Goal(s): Education of disease process Instruction(s): Follow provider plan/instructions (See attached discharge education) Follow/up with primary care provider as instructed in discharge packet Patient Instructions: DI for Escherichia Coli Infection, DI for Dehydration -- Adult, DI for Urinary Tract Infection (UTI), Nausea and Vomiting-Adult, DI for Leukocytosis - Follow up Plan Follow up with: Sebastian Small MD [Primary Care Provider] - 1 week Disposition: Home, Self-Senior Care Medications: Home Medications Medication Instructions Recorded Confirmed Type atorvastatin 10 mg tablet 10 mg PO HS 30 Days #11/13/17 06/25/18 History lisinopril 10 1 tab PO DAILY 30 Days #11/13/17 06/25/18 History mg-hydrochlorothiazide 12.5 mg tablet olanzapine 10 mg tablet 10 mg PO DAILY 30 Days #30 11/13/17 06/25/18 History sertraline 100 mg tablet 100 mg PO DAILY 30 Days #30 11/13/17 06/25/18 History trazodone 150 mg tablet 150 mg PO HS 30 Days #30 11/13/17 06/25/18 History ARIPiprazole [Aripiprazole] 2 mg PO HS 06/18/18 06/26/18 History Cetirizine HCl 10 mg PO HS 06/18/18 06/25/18 History Ondansetron HCl [Ondansetron 4mg 4 mg PO Q8HP PRN 06/18/18 06/25/18 History Tablet] levoFLOXacin [Levaquin 500mg 500 mg PO 1100 06/25/18 06/25/18 History tab] Prescriptions/Medication Reconciliation: Continue lisinopril 10 mg-hydrochlorothiazide 12.5 mg tablet 1 tab PO DAILY 30 Days #30 trazodone 150 mg tablet 150 mg PO HS 30 Days #30 olanzapine 10 mg tablet 10 mg PO DAILY 30 Days #30 sertraline 100 mg tablet 100 mg PO DAILY 30 Days #30 atorvastatin 10 mg tablet 10 mg PO HS 30 Days #30 ARIPiprazole [Aripiprazole] 2 mg PO HS Ondansetron HCl [Ondansetron 4mg Tablet] 4 mg PO Q8HP PRN PRN Reason: Nausea And Vomiting Cetirizine HCl 10 mg PO HS No Action levoFLOXacin [Levaquin 500mg tab] 500 mg PO 1100
== END 2018-06-21 16:46 | disposition home or self-care (01) ==
LOC: 2ND
PROVIDERS: ADMIT Internal Medicine Adolescent Medicine; ATTEND Internal Medicine Adolescent Medicine
CPT/HCPCS: 36415; 71020; 71046; 74176; 74241; 76705; 80048; 80053; 81001; 85025; 87040; 87086; 87088; 87186; 93005; G0378; J2405

== ENCOUNTER 2018-06-25 13:09 | Observation (INO) ==
--- NOTE | 2018-06-25 13:29 | Emergency Department Note ---
ED Disposition Clinical Impression: Hypokalemia Vomiting Qualifiers: Vomiting type: unspecified Vomiting Intractability: non-intractable Nausea presence: unspecified Qualified Code(s): R11.10 - Vomiting, unspecified Disposition: Still a Patient Condition on Discharge: Fair Referrals: Sebastian Small MD [Primary Care Provider] - - Critical Care Critical Care Time: No Attestation: On , the high probability of a clinically significant, sudden or life threatening deterioration of the following system(s) required my full and direct attention, intervention and personal management. The time I documented below is in addition to time spent performing reported procedures but includes the following listed in this critical care notation. Medical Decision Making - Carlos Inquiry Pt receiving controlled substance: No Vital Signs: 06/25/18 13:13 06/25/18 14:39 06/25/18 15:21 Temperature 98.0 F Temperature Source Oral Pulse Rate [Left Radial] 86 90 95 H Respiratory Rate 16 16 20 Blood Pressure [Left Arm] 109/76 L 121/64 162/84 H Blood Pressure Mean [Left Arm] 87 83 110 Blood Pressure Source [Left Arm] Automatic Cuff Automatic Cuff Automatic Cuff Blood Pressure Position [Left Arm] Supine Sitting Sitting 02 Sat by Pulse Oximetry 98 99 98 Oxygen Delivery Method Room Air Room Air - Lab Data Lab Results 06/25/18 13:20: WBC 6.2, RBC 4.49, Hgb 12.3, Hct 38.5, MCV 85.8, MCH 27.4, MCHC 31.9, RDW 14.3, Plt Count 358, MPV 7.9, Neut % (Auto) 54.0, Lymph % (Auto) 35.7, [place] % (Auto) 6.5, Eos % (Auto) 3.5, Baso % (Auto) 0.3, Neut # (Auto) 3.4, Lymph # (Auto) 2.2, [place] # (Auto) 0.4, Eos # (Auto) 0.2, Baso # (Auto) 0.0 06/25/18 13:20: Sodium 138, Potassium 2.9 L*, Chloride 99, Carbon Dioxide 27, Anion Gap 14.9, BUN 11, Creatinine 1.21 H, Estimated Creat Clear 59, Estimated GFR 45 L, Est GFR ( Amer) 54 L, Glucose 91, Calcium 9.0, Total Bilirubin 0.4, AST 47 H, ALT 30, Alkaline Phosphatase 64, Troponin I < 0.02, Total Protein 7.6, Albumin 3.0 L, Globulin 4.6 H, Albumin/Globulin Ratio 0.7 L 06/25/18 13:20: Lipase 61 L 06/25/18 14:10: Urine Color Yellow, Urine Appearance Sl cloudy, Urine pH 6.0, Ur Specific [place] 1.020, Urine Protein Negative, Urine Glucose (UA) Negative, Urine Ketones Negative, Urine Blood Negative, Urine Nitrate Negative, Urine Bilirubin Negative, Urine Urobilinogen 1.0, Ur Leukocyte Esterase 1+ A, Urine RBC Occasional, Urine WBC 3-5, Ur Squamous Epith Cells Occasional, Urine Bacteria Trace Result diagrams: 06/25/18 13:20 06/25/18 13:20 Orders (Tests/Meds): ED MEDICATIONS Generic Name Dose Route Start Last Admin Trade Name Freq PRN Reason Stop Dose Admin Sodium Chloride 1,000 mls @ 100 mls/hr 06/25/18 13:45 06/25/18 14:16 Sod Chlor 0.9% 1000ml Bag IV 07/25/18 13:44 100 mls/hr .Q10H ANUPAMA Administration Discontinued Medications Generic Name Dose Route Start Last Admin Trade Name Freq PRN Reason Stop Dose Admin Ondansetron HCl 4 mg 06/25/18 13:39 06/25/18 14:16 Zofran 4mg/2ml Vial IV 06/25/18 13:40 4 mg ONCE ONE Administration Potassium Chloride 40 meq 06/25/18 14:48 06/25/18 15:20 Klor-Con 20meq Tablet PO 06/25/18 14:49 40 meq ONCE ONE Administration ORDERS Category Date Time Status UA [Urinalysis and Microscopic] Stat Lab 06/25/18 14:10 Ordered Urine Culture Stat Micro 06/25/18 14:10 Received - CT Data CT Scan: Head Time Received: 14:[address] Reviewed: Yes: I have viewed the radiologist's interpretation Preliminary Findings: Normal/NAD - ECG Data Tracing #1 EKG interpreted by Alvaro Danielle MD: Rhythm: sinus Rate: 85 Nelson: normal Ectopy: none Conduction: normal ST Segment Changes: none T Wave Changes: Nonspecific Q Waves: none No evidence of acute ischemia or injury - Physician Consults Physician Consulted: Sowmya Time: 15:33 Reason -: Admission Comment/Response: Agrees to admit the patient to the hospital. We discussed the patient's clinical information, including history, exam, laboratory and radiology results and ED course. Per hospital procedure, I will write temporary bridge inpatient orders on the patient. Specific orders requested by the admitting physician: Normal saline with 20 mEq of potassium per liter Medical Decision Narrative: IMPRESSION: Limited study, essentially negative upper GI Dictated By: Jim Borrero MD Signed By: <Electronically signed by Jim Borrero MD in [place]> 06/20/18 1006 IMPRESSION: Mildly distended gallbladder with small amount of sludge. No stones or biliary dilatation evident Fatty liver Dictated By: Jim Borrero MD Signed By: <Electronically signed by Jim Borrero MD in [facility]> 06/18/18 1100 IMPRESSION 1. no acute finding is abdomen or pelvis. No free fluid abdomen or pelvis but no bowel dilatation or obstruction. 2. Hepatic steatosis. Prominent diffuse fatty liver changes 3.. gallbladder. No calcified gallstones but suspect minimal sludge even though none seen on recent ultrasound Generous volume gallbladder today,. Borderline Distended 4. Diffuse Colonic diverticulosis but no focal diverticulitis evident. . 5. Possible small slight hiatal hernia.. Stomach otherwise unremarkable. 6. Urinary bladder wall upper normal thickness. Warrants correlation urinalysis to better exclude UGI/ or cystitis. Dictated By: Pradeep Wolfe Signed By: <Electronically signed by Pradeep Wolfe in [place]> 06/17/18 1704 Impression: Fatty liver otherwise negative right upper quadrant ultrasound Dictated By: Jim Borrero MD Signed By: <Electronically signed by Jim Borrero MD in [facility]> 05/14/18 1539 Urine culture shows E. coli, sensitive to Levaquin General Adult HPI - General Chief complaint: Weakness Stated complaint: can't keep anything down,weakness Time Seen by Provider: 06/25/18 13:28 Mode of Arrival: Wheelchair Limitations: Physical Limitations Description of Symptoms (Recalled from ER Triage Doc. by RN): Nurse reports that she is unable to keep anything down for about 2 weeks ago. The nurse that is with her from the adult daycare states that Dr. Small admitted her for the same symptoms that she is having now. She is refusing solid foods. She usually ambu lates on her own without assisstance but is now needing helping to ambulate. - History of Present Illness HPI narrative: Aid from adult daycare brings the patient in and states that the patient has been sick for 2 weeks. Projectile vomiting whenever she tries to eat or drink anything. States that she is able to hold down her medicine. Projectile vomiting today after she did drink water. The patient had eaten Jell-O this morning and apparently it came up as well when she vomited. The patient was admitted to this hospital 06/19/18 through 06/21/18 for the same symptoms. She was diagnosed with a UTI. Treated with the Levaquin. Symptoms have not imp roved. The aide states that she is getting so weak that she is falling. She fell yesterday. She denies injury. - Related Data Home Medications Medication Instructions Recorded Confirmed atorvastatin 10 mg tablet 10 mg PO HS 30 Days #30 11/13/17 06/25/18 lisinopril 10 1 tab PO DAILY 30 Days #30 11/13/17 06/25/18 mg-hydrochlorothiazide 12.5 mg tablet olanzapine 10 mg tablet 10 mg PO DAILY 30 Days #30 11/13/17 06/25/18 sertraline 100 mg tablet 100 mg PO DAILY 30 Days #30 11/13/17 06/25/18 trazodone 150 mg tablet 150 mg PO HS 30 Days #30 11/13/17 06/25/18 ARIPiprazole [Aripiprazole] 2 mg PO DAILY 06/18/18 06/25/18 Cetirizine HCl 10 mg PO HS 06/18/18 06/25/18 Ondansetron HCl [Ondansetron 4mg 4 mg PO Q8HP PRN 06/18/18 06/25/18 Tablet] levoFLOXacin [Levaquin 500mg 500 mg PO 1100 06/25/18 06/25/18 tab] Allergies Allergy/AdvReac Type Severity Reaction Status Date / Time No Known Allergies Allergy Unverified 07/31/17 14:54 [facility] History I have reviewed the patient's past medical history: Yes Medical History: Reports:: Cancer (Breast), Hypertension Denies:: Diabetes Mellitus Type 1, Diabetes Mellitus Type 2 Laterality Cases: Right: Mastectomy Other Surgeries: Yes: No Previous Surgery, Cancer Surgery, Hysterectomy-Partial, Tubal Ligation, Other Fractures: Yes (Left lower leg and foot) - Social History Smoking Status: Former smoker # Packs/Day (cigarettes): 0 #Yrs smoked (if former smoker): 0 Alcohol Intake: never Alcohol Intake Frequency:: other Substance Use Type: denies use Occupational Status: other Housing: house Household Members: none Comment: attends Adult Day during the day Sunday-Sunday - Psychiatric History Pschychiatric History:: Reports:: Schizophrenia Family Hx:: Unable to obtain ROS Obtained: Yes All systems reviewed & no additional complaints - Constitutional Constitutional: Denies fever(s) - Cardiovascular Cardiovascular: Denies chest pain - Respiratory Respiratory: No dyspnea - Gastrointestinal Gastrointestingal: Reports: vomiting. Denies: abdominal pain, nausea - Neurologic Neurologic: Denies headache(s) Physical Exam - General General appearance: alert, in no apparent distress - Head Head exam: atraumatic, normocephalic - Eye Eye exam: Present: normal appearance, PERRL, EOMI - ENT ENT exam: Present: normal exam, mucous membranes moist - Neck Neck exam: Present: normal inspection - Chest Chest inspection: Present: normal inspection, symmetric chest wall rise - Respiratory Respiratory exam: Present: normal lung sounds bilaterally - Cardiovascular Cardiovascular exam: Present: regular rate, normal rhythm, normal heart sounds - Abdominal Exam Abdominal exam: Present: soft. Absent: distention, tenderness, guarding - Extremities Exam Extremities exam: Present: normal inspection - Neurological Exam Neurological exam: Present: alert, CN II-XII intact. Absent: motor sensory deficit - Psychiatric Psychiatric exam: Present: normal affect, normal mood - Skin Skin exam: Present: warm, dry - Lymphatic Lymphatic Findings: no adenopathy
[2018-06-25 13:45] LABS: Basophils % 0.3 % (0.1-2.0); Eosinophils # 0.2 K/mm3 (0.0-0.4); Eosinophils % 3.5 % (0.1-12.0); Hematocrit 38.5 % (37.0-47.0); Hemoglobin 12.3 g/dL (12.2-16.2); Lymphocytes # 2.2 K/mm3 (0.7-4.5); Lymphocytes % 35.7 % (10-50); Mean Corpuscular HGB Conc 31.9 g/dL (31.8-35.4); Mean Corpuscular Hemoglobin 27.4 pg (27.0-31.2); Mean Corpuscular Volume 85.8 fl (81-99); Mean Platelet Volume 7.9 fl (7.4-10.4); Monocytes # 0.4 K/mm3 (0.1-1.0); Monocytes % 6.5 % (1.7-9.3); Neutrophils # 3.4 K/mm3 (1.8-7.8); Platelet Count 358 K/mm3 (142-424); Red Blood Count 4.49 M/mm3 (4.20-5.40); Red Cell Distribution Width 14.3 % (11.5-17.5); White Blood Count 6.2 K/mm3 (4.8-10.8)
[2018-06-25 13:56] LABS: Alanine Aminotransferase 30 U/L (12-78); Albumin/Globulin Ratio 0.7 (1.1-1.8); Alkaline Phosphatase 64 U/L (46-116); Anion Gap 14.9 mEq/L (5-15); Aspartate Amino Transferase 47 U/L (15-37); Bilirubin,Total 0.4 mg/dL (0.2-1.0); Blood Urea Nitrogen 11 mg/dL (7-18); Carbon Dioxide 27 mmol/L (21.0-32.0); Chloride 99 mmol/L (98-107); Globulin 4.6 gm/dl (1.3-3.2); Glucose 91 mg/dL (74-106); Sodium 138 mmol/L (136-145); Total Protein,Serum 7.6 gm/dL (6.4-8.2)
[2018-06-25 14:06] LABS: Potassium 2.9 mmoL/L (3.5-5.1)
[2018-06-25 14:18] LABS: Microscopic, Urine URINE MICROSCOPIC (MICROSCOPIC)
[2018-06-25 14:21] LABS: Appearance,Urine SL CLOUDY (Clear); Blood, Urine Negative (Negative); Color,Urine YELLOW (Yellow); Glucose,Urine (UA) Negative (Negative); Ketones,Urine Negative (Negative); Leukocyte Esterase,Urine 1+ (Negative); Protein,Urine Negative (Negative)
[2018-06-25 14:28] LABS: Bilirubin,Urine Negative (Negative)
[2018-06-25 14:48] LABS: Bacteria,Urine Trace /lpf; RBC,Urine Occasional #/hpf (0-3); Squamous Epithelial Cell,Urine Occasional #/hpf (0-5)
--- NOTE | 2018-06-25 17:13 | History & Physical Report ---
*Admission Date: 06/25/18 *Chief complaint: Emesis and weakness *History of present illness: Neelam Roger is a 67-year-old female with history of cognitive impairment, breast cancer status post mastectomy, and hypertension who presents with recurrent nausea and vomiting. She was recently admitted last week for similar symptoms with extensive workup consisting of CT abdomen, hepatitis panel, right upper quadrant ultrasound, and labs. Noted to have UTI and kidney injury during last hospitalization. Tolerated p.o. intake with no further episodes and was stable for discharge home. She represents today to the ER from adult daycare where she was noted to have projectile vomiting and nausea after eating. Additionally she complained of feeling weak/fatigued. Family at bedside during history states that over the weekend she tolerated chicken noodle soup and other food items with no problems. Had no episodes of emesis, kept down fluids and was doing well. It was not until going back to adult daycare today that she had recurrence of her emesis. Emesis described as nonbilious, nonbloody. Patient denies any abdominal pain, headache, neck pain, diarrhea, syncope. Note, imaging at last hospitalization showed concern for some mild distention of gallbladder, otherwise normal workup. [facility] History I have reviewed the patient's past medical history: Yes Medical History: Reports:: Cancer (Breast), Hypertension Denies:: Diabetes Mellitus Type 1, Diabetes Mellitus Type 2 Laterality Cases: Right: Mastectomy Other Surgeries: Yes: No Previous Surgery, Cancer Surgery, Hysterectomy-Partial, Tubal Ligation, Other Fractures: Yes (Left lower leg and foot) - *Social History Smoking Status: Former smoker # Packs/Day (cigarettes): 0 #Yrs smoked (if former smoker): 0 Alcohol Intake: never Alcohol Intake Frequency:: other Substance Use Type: denies use Occupational Status: other Housing: house Household Members: none - Psychiatric History Expresses thoughts of harming self/others: None Suicide Plan Description: No Plan Pschychiatric History:: Reports:: Schizophrenia *Family Hx:: Unable to obtain Comment: Patient poor historian and does not recall. Review of Systems - *Neurologic Denies headache(s) Meds Home Medications Medication Instructions Recorded Confirmed Type atorvastatin 10 mg tablet 10 mg PO HS 30 Days #30 11/13/17 06/25/18 History lisinopril 10 1 tab PO DAILY 30 Days #30 11/13/17 06/25/18 History mg-hydrochlorothiazide 12.5 mg tablet olanzapine 10 mg tablet 10 mg PO DAILY 30 Days #30 11/13/17 06/25/18 History sertraline 100 mg tablet 100 mg PO DAILY 30 Days #30 11/13/17 06/25/18 History trazodone 150 mg tablet 150 mg PO HS 30 Days #30 11/13/17 06/25/18 History ARIPiprazole [Aripiprazole] 2 mg PO DAILY 06/18/18 06/25/18 History Cetirizine HCl 10 mg PO HS 06/18/18 06/25/18 History Ondansetron HCl [Ondansetron 4mg 4 mg PO Q8HP PRN 06/18/18 06/25/18 History Tablet] levoFLOXacin [Levaquin 500mg 500 mg PO 1100 06/25/18 06/25/18 History tab] Allergies Allergy/AdvReac Type Severity Reaction Status Date / Time No Known Allergies Allergy Unverified 07/31/17 14:54 Exam Vital signs and Labs for Last 24 Hours: Temp Pulse Resp BP Pulse Ox 98.0 F 86 16 122/74 98 06/25/18 13:13 06/25/18 17:02 06/25/18 16:00 06/25/18 17:02 06/25/18 17:02 Laboratory Results - last 24 hr 06/25/18 13:20: WBC 6.2, RBC 4.49, Hgb 12.3, Hct 38.5, MCV 85.8, MCH 27.4, MCHC 31.9, RDW 14.3, Plt Count 358, MPV 7.9, Neut % (Auto) 54.0, Lymph % (Auto) 35.7, [place] % (Auto) 6.5, Eos % (Auto) 3.5, Baso % (Auto) 0.3, Neut # (Auto) 3.4, Lymph # (Auto) 2.2, [place] # (Auto) 0.4, Eos # (Auto) 0.2, Baso # (Auto) 0.0 06/25/18 13:20: Sodium 138, Potassium 2.9 L*, Chloride 99, Carbon Dioxide 27, Anion Gap 14.9, BUN 11, Creatinine 1.21 H, Estimated Creat Clear 59, Estimated GFR 45 L, Est GFR ( Amer) 54 L, Glucose 91, Calcium 9.0, Total Bilirubin 0.4, AST 47 H, ALT 30, Alkaline Phosphatase 64, Troponin I < 0.02, Total Protein 7.6, Albumin 3.0 L, Globulin 4.6 H, Albumin/Globulin Ratio 0.7 L 06/25/18 13:20: Lipase 61 L 06/25/18 14:10: Urine Color Yellow, Urine Appearance Sl cloudy, Urine pH 6.0, Ur Specific [place] 1.020, Urine Protein Negative, Urine Glucose (UA) Negative, Urine Ketones Negative, Urine Blood Negative, Urine Nitrate Negative, Urine Bilirubin Negative, Urine Urobilinogen 1.0, Ur Leukocyte Esterase 1+ A, Urine RBC Occasional, Urine WBC 3-5, Ur Squamous Epith Cells Occasional, Urine Bacteria Trace I & O for Last 24 hours: Intake & Output 06/22/18 06/23/18 06/24/18 06/25/18 23:59 23:59 23:59 23:59 Weight 81.647 kg - *Routine HEENT Exam Head: Present: normocephalic, atraumatic Eye: Present: EOMI, PERRL ENT: Present: mucous membranes moist Comments: poor dentition - *Routine Neck Exam Present: supple, full ROM - *Routine Respiratory Exam Present: CTA bilaterally. Absent: accessory muscle use, wheezes, crackles - *Routine Cardiovascular Exam Present: RRR, Normal S1, Normal S2 - *Routine Abdominal Exam Present: soft, normoactive bowel sounds. Absent: tenderness, distended, rebound, guarding Comments: Negative Raya sign - *Routine Rectal Exam Patient deferred: visual exam - *Routine Exam Patient deferred: external exam - *Routine Extremities Exam Present: edema (1+ to knees). Absent: cyanosis, clubbing - *Routine Skin Exam Present: intact. Absent: cyanosis, erythema - *Routine Neurological Exam Present: alert, oriented X3 Assessment and Plan (1) Hypokalemia Current visit: Yes Status: Acute Category: Medical Code(s): E87.6 - Hypokalemia Likely due to vomiting -Replace via IV and p.o. as tolerated. -Reassess with morning labs (2) ALETHA (acute kidney injury) Current visit: No Status: Acute Category: Medical Code(s): N17.9 - Acute kidney failure, unspecified Prerenal due to nausea vomiting and dehydration -Reassess creatinine in morning after rehydration (3) Dehydration Current visit: No Status: Acute Category: Medical Code(s): E86.0 - Dehydration Secondary to vomiting (4) E. coli UTI Current visit: No Status: Acute Category: Medical Code(s): N39.0 - Urinary tract infection, site not specified; B96.20 - Unspecified Escherichia coli [E. coli] as the cause of diseases classified elsewhere Present on admission, continue Levaquin as previously started. Previous culture sensitive (5) Nausea and vomiting Current visit: No Status: Acute Qualifiers: Vomiting type: unspecified Category: Medical Code(s): R11.2 - Nausea with vomiting, unspecified Unclear etiology, extensive workup previously was negative. Question if episodes of emesis are psychogenic as they occur only at her adult daycare or o ther related to diet and her gallbladder even though she does not have cold with this. Possibility that mildly distended gallbladder irritation and emesis. Consider HIDA scan this function of the gallbladder in the morning. - Assessment and plan all Dx Assessment and Plan for all problems:: Concern for patient's ability to care for herself at home. Family has expressed desire for a sitter at home and they are not able to be there. They are also clear however that finances will not allow them to afford to do this personally. Discussed option of placement in [facility] even temporarily, family highly resistant to this option. We will consult home health care worker to assist with placement options and dispel plans.
[2018-06-26 06:17] LABS: Basophils % 0.5 % (0.1-2.0); Eosinophils # 0.2 K/mm3 (0.0-0.4); Eosinophils % 4.5 % (0.1-12.0); Hematocrit 33.1 % (37.0-47.0); Lymphocytes # 1.9 K/mm3 (0.7-4.5); Lymphocytes % 37.2 % (10-50); Mean Corpuscular HGB Conc 31.9 g/dL (31.8-35.4); Mean Corpuscular Hemoglobin 27.7 pg (27.0-31.2); Mean Platelet Volume 7.6 fl (7.4-10.4); Monocytes # 0.4 K/mm3 (0.1-1.0); Monocytes % 7.4 % (1.7-9.3); Neutrophils # 2.6 K/mm3 (1.8-7.8); Neutrophils % 50.3 % (37.0-80.0); Platelet Count 260 K/mm3 (142-424); Red Cell Distribution Width 14.4 % (11.5-17.5); White Blood Count 5.2 K/mm3 (4.8-10.8)
[2018-06-26 06:21] LABS: Hemoglobin 10.6 g/dL (12.2-16.2)
[2018-06-26 06:36] LABS: Albumin Level 2.4 gm/dL (3.4-5.0); Albumin/Globulin Ratio 0.7 (1.1-1.8); Anion Gap 8.5 mEq/L (5-15); Bilirubin,Total 0.2 mg/dL (0.2-1.0); Globulin 3.6 gm/dl (1.3-3.2); Phosphorous 2.4 mg/dL (2.4-4.9)
[2018-06-26 06:39] LABS: Potassium 2.5 mmoL/L (3.5-5.1)
[2018-06-26 06:44] LABS: Calcium 7.8 mg/dL (8.5-10.1)
--- NOTE | 2018-06-26 07:48 | Pharmacy Consult Notes ---
[facility] Pharmacy VTE Monitoring - Patient Demographics Admission date: 06/26/18 Report Date: 06/26/18 Time: 07:47 Allergies/Adverse Reactions: Patient Allergies No Known Allergies Allergy (Unverified 07/31/17 14:54) Height: 1.68 m Weight: 99.507 kg Patient Problems: Current Active Problems Vomiting (Acute) Hypokalemia (Acute) - VTE Risk Labs: VTE Related Lab Results Hgb 10.6 g/dL (12.2-16.2) L D 06/26/18 05:45 Hct 33.1 % (37.0-47.0) L 06/26/18 05:45 Plt Count 260 K/mm3 (142-424) D 06/26/18 05:45 BUN 9 mg/dL (7-18) 06/26/18 05:45 Creatinine 0.87 mg/dL (0.55-1.02) D 06/26/18 05:45 Estimated Creat Clear 87 mL/min (50-200) 06/26/18 05:45 Was VTE Risk Assessment Performed: Yes VTE Score: 1 VTE Risk Level: Very Low Risk Clinical Trial Participant: No - Prophylaxis VTE Prophylaxis Ordered?: Yes Types of VTE Prophylaxis: TEDS Knee High
--- NOTE | 2018-06-26 08:56 | Progress Note ---
Internal Medicine - PN: Subj *Date: 06/26/18 *Time: 08:54 Interval history: Patient continues to feel "sick" but denies vomiting, abdominal pain or nausea. She ate sausage and oatmeal for breakfast and has had no vomiting. She has a visitor this morning who is with the [employer] who helps her get to daycare. They expressed significant concerns about her home environment and her lack of eating of the meals that they provide along with a lack of basic cleanliness at her home including its of old emesis at her home that is not been cleaned up by her family. Please see Dr. Deng's note from yesterday. He had a long discussion with her son who is extremely resistant to any idea of placement even for a temporary option. The patient this morning also wishes to go home. Exam Vital signs and Labs for Last 24 Hours: Temp Pulse Resp BP Pulse Ox 98.0 F 96 H 16 111/75 100 06/26/18 08:00 06/26/18 08:00 06/26/18 08:00 06/26/18 08:00 06/26/18 08:00 Laboratory Results - last 24 hr 06/25/18 13:20: WBC 6.2, RBC 4.49, Hgb 12.3, Hct 38.5, MCV 85.8, MCH 27.4, MCHC 31.9, RDW 14.3, Plt Count 358, MPV 7.9, Neut % (Auto) 54.0, Lymph % (Auto) 35.7, [place] % (Auto) 6.5, Eos % (Auto) 3.5, Baso % (Auto) 0.3, Neut # (Auto) 3.4, Lymph # (Auto) 2.2, [place] # (Auto) 0.4, Eos # (Auto) 0.2, Baso # (Auto) 0.0 06/25/18 13:20: Sodium 138, Potassium 2.9 L*, Chloride 99, Carbon Dioxide 27, Anion Gap 14.9, BUN 11, Creatinine 1.21 H, Estimated Creat Clear 59, Estimated GFR 45 L, Est GFR ( Amer) 54 L, Glucose 91, Calcium 9.0, Total Bilirubin 0.4, AST 47 H, ALT 30, Alkaline Phosphatase 64, Troponin I < 0.02, Total Protein 7.6, Albumin 3.0 L, Globulin 4.6 H, Albumin/Globulin Ratio 0.7 L 06/25/18 13:20: Lipase 61 L 06/25/18 14:10: Urine Color Yellow, Urine Appearance Sl cloudy, Urine pH 6.0, Ur Specific [place] 1.020, Urine Protein Negative, Urine Glucose (UA) Negative, Urine Ketones Negative, Urine Blood Negative, Urine Nitrate Negative, Urine Bilirubin Negative, Urine Urobilinogen 1.0, Ur Leukocyte Esterase 1+ A, Urine RBC Occasional, Urine WBC 3-5, Ur Squamous Epith Cells Occasional, Urine Bacteria Trace 06/26/18 05:45: WBC 5.2, RBC 3.80 L, Hgb 10.6 L D, Hct 33.1 L, MCV 87.0, MCH 27.7, MCHC 31.9, RDW 14.4, Plt Count 260 D, MPV 7.6, Neut % (Auto) 50.3, Lymph % (Auto) 37.2, [place] % (Auto) 7.4, Eos % (Auto) 4.5, Baso % (Auto) 0.5, Neut # (Auto) 2.6, Lymph # (Auto) 1.9, [place] # (Auto) 0.4, Eos # (Auto) 0.2, Baso # (Auto) 0.0 06/26/18 05:45: Sodium 141, Potassium 2.5 L*, Chloride 106, Carbon Dioxide 29, Anion Gap 8.5, BUN 9, Creatinine 0.87 D, Estimated Creat Clear 87, Estimated GFR 65, Est GFR ( Amer) 79 D, Glucose 116 H D, Calcium 7.8 L D, Phosphorus 2.4, Magnesium 1.4, Total Bilirubin 0.2, AST 34 D, ALT 27, Alkaline Phosphatase 55, Total Protein 6.0 L, Albumin 2.4 L D, Globulin 3.6 H, Albumin/Globulin Ratio 0.7 L I & O for Last 24 hours: Intake & Output 06/23/18 06/24/18 06/25/18 06/26/18 11:59 11:59 11:59 11:59 Intake Total 720 / 720 Balance 720 / 720 Weight 219 lb 6 oz Narrative: Patient is alert. Pleasant. Responds to commands, answers questions with 1 or 2 words. However, given her cognitive impairment is unable to really give a lot of good symptom details. Oropharynx is clear, no JVD. She is in no distress. Anterior lung beckham are clear. Heart rate regular. Her morbid obesity limits the accuracy of her exam, however. Abdomen however is soft and nontender. No edema or clubbing except for obesity related swelling in her feet or hands. Assessment and Plan (1) Hypokalemia Current visit: Yes Status: Acute Category: Medical Code(s): E87.6 - Hypokalemia (2) ALETHA (acute kidney injury) Current visit: No Status: Acute Category: Medical Code(s): N17.9 - Acute kidney failure, unspecified (3) Dehydration Current visit: No Status: Acute Category: Medical Code(s): E86.0 - Dehydration (4) E. coli UTI Current visit: No Status: Acute Category: Medical Code(s): N39.0 - Urinary tract infection, site not specified; B96.20 - Unspecified Escherichia coli [E. coli] as the cause of diseases classified elsewhere (5) Nausea and vomiting Current visit: No Status: Acute Qualifiers: Vomiting type: unspecified Category: Medical Code(s): R11.2 - Nausea with vomiting, unspecified - Assessment and plan all Dx Assessment and Plan for all problems:: In regards to the problem list above, we will replace potassium today and monitor this closely. In regards to her acute kidney injury, this has improved with fluids. In regards to her abdominal pain and chronic vomiting, I will order a HIDA scan for gallbladder evaluation given its mild yet notable abnormalities on CT scan. Care management will continue to investigate her home situation.
[2018-06-26 16:19] LABS: Calcium 8.3 mg/dL (8.5-10.1)
[2018-06-27 07:11] LABS: Basophils % 0.3 % (0.1-2.0); Eosinophils # 0.2 K/mm3 (0.0-0.4); Eosinophils % 3.6 % (0.1-12.0); Hemoglobin 10.4 g/dL (12.2-16.2); Lymphocytes # 1.9 K/mm3 (0.7-4.5); Lymphocytes % 36.5 % (10-50); Mean Corpuscular HGB Conc 31.5 g/dL (31.8-35.4); Mean Corpuscular Hemoglobin 27.6 pg (27.0-31.2); Mean Corpuscular Volume 87.5 fl (81-99); Mean Platelet Volume 8.3 fl (7.4-10.4); Monocytes # 0.4 K/mm3 (0.1-1.0); Monocytes % 8.2 % (1.7-9.3); Neutrophils # 2.6 K/mm3 (1.8-7.8); Neutrophils % 51.4 % (37.0-80.0); Platelet Count 256 K/mm3 (142-424); Red Blood Count 3.77 M/mm3 (4.20-5.40); Red Cell Distribution Width 14.7 % (11.5-17.5); White Blood Count 5.1 K/mm3 (4.8-10.8)
[2018-06-27 07:36] LABS: Albumin Level 2.2 gm/dL (3.4-5.0); Albumin/Globulin Ratio 0.6 (1.1-1.8); Anion Gap 9.4 mEq/L (5-15); Bilirubin,Total 0.3 mg/dL (0.2-1.0); Globulin 3.5 gm/dl (1.3-3.2); Potassium 3.4 mmoL/L (3.5-5.1); Total Protein,Serum 5.7 gm/dL (6.4-8.2)
--- NOTE | 2018-06-27 08:13 | Progress Note ---
Internal Medicine - PN: Subj *Date: 06/27/18 *Time: 07:30 Interval history: Patient had no episode of vomiting this morning. No diarrhea. No abdominal pain today. Alert and oriented at baseline. Rate and rhythm regular. Trace LE edema. Anterior lung beckham clear. Abdomen soft, nontender, normoactive bowel sounds. Exam Vital signs and Labs for Last 24 Hours: Temp Pulse Resp BP Pulse Ox 98.5 F 88 16 94/51 L 95 06/27/18 00:12 06/27/18 00:12 06/27/18 00:12 06/27/18 00:12 06/27/18 00:12 Laboratory Results - last 24 hr 06/26/18 15:55: Sodium 132 L, Potassium 3.0 L, Chloride 114 H, Carbon Dioxide 28, Anion Gap -7.0 L, BUN 7, Creatinine 0.92, Estimated Creat Clear 87, Estimated GFR 61, Est GFR ( Amer) 74, Glucose 109 H, Calcium 8.3 L 06/27/18 07:05: WBC 5.1, RBC 3.77 L, Hgb 10.4 L, Hct 33.0 L, MCV 87.5, MCH 27.6, MCHC 31.5 L, RDW 14.7, Plt Count 256, MPV 8.3, Neut % (Auto) 51.4, Lymph % (Auto) 36.5, [place] % (Auto) 8.2, Eos % (Auto) 3.6, Baso % (Auto) 0.3, Neut # (Auto) 2.6, Lymph # (Auto) 1.9, [place] # (Auto) 0.4, Eos # (Auto) 0.2, Baso # (Auto) 0.0 06/27/18 07:05: Sodium 143, Potassium 3.4 L, Chloride 109 H, Carbon Dioxide 28, Anion Gap 9.4, BUN 7, Creatinine 0.85, Estimated Creat Clear 87, Estimated GFR 67, Est GFR ( Amer) 81, Glucose 103, Calcium 8.0 L, Total Bilirubin 0.3, AST 25 D, ALT 24, Alkaline Phosphatase 52, Total Protein 5.7 L, Albumin 2.2 L, Globulin 3.5 H, Albumin/Globulin Ratio 0.6 L I & O for Last 24 hours: Intake & Output 11/1206/25/18 06/26/18 06/27/18 11:59 11:59 11:59 11:59 Intake Total 720 / 720 4306 / 4306 Balance 720 / 720 4306 / 4306 Weight 219 lb 6 oz 219 lb 6.006 oz Microbiology Reports for the Last 24 Hours: Microbiology 06/25/18 14:10 Urine,Catheterized Urine Culture - Preliminary NO GROWTH AFTER 24 HOURS Assessment and Plan (1) Hypokalemia Current visit: Yes Status: Acute Category: Medical Code(s): E87.6 - Hypokalemia (2) ALETHA (acute kidney injury) Current visit: No Status: Acute Category: Medical Code(s): N17.9 - Acute kidney failure, unspecified (3) Dehydration Current visit: No Status: Acute Category: Medical Code(s): E86.0 - Dehydration (4) E. coli UTI Current visit: No Status: Acute Category: Medical Code(s): N39.0 - Urinary tract infection, site not specified; B96.20 - Unspecified Escherichia coli [E. coli] as the cause of diseases classified elsewhere (5) Nausea and vomiting Current visit: No Status: Acute Qualifiers: Vomiting type: unspecified Category: Medical Code(s): R11.2 - Nausea with vomiting, unspecified - Assessment and plan all Dx Assessment and Plan for all problems:: NPO for HIDA Scan today. Hypokalemia is improving, noted at 3 this morning. Will replace potassium after completion of HIDA Scan. If HIDA Scan is abnormal will consult surgery. If scan is normal will consider discharge to [facility] tomorrow as family is in agreement.
--- NOTE | 2018-06-28 08:06 | Consult Report ---
*Admission Date: 06/26/18 *Chief complaint: VOMITING *History of present illness: Patient is a 67-year-old female with cognitive impairment. For several weeks she has had intermittent issues mostly with vomiting. She underwent outpatient evaluation including gallbladder ultrasound which revealed some minor sludge and mild air distention of the gallbladder. She had been admitted last week with similar symptoms. She had a surgical consultation performed at that time. He underwent upper GI series was a limited study but relatively unremarkable. She was admitted 3 days ago with recurrent vomiting. She was noted to have some hypokalemia. She was admitted for inpatient management. Yesterday she und erwent a HIDA scan with fatty meal, without Kinevac, which revealed diminished ejection fraction calculated. Surgical consultation was obtained. Patient ate her entire regular breakfast this morning without difficulty. Review of Systems - Review of Systems Review of systems:: unable to obtain - *Neurologic Denies headache(s) [facility] History Medical History: Reports:: Cancer (Breast), Hypertension Denies:: Diabetes Mellitus Type 1, Diabetes Mellitus Type 2 Laterality Cases: Right: Mastectomy Other Surgeries: Yes: No Previous Surgery, Cancer Surgery, Hysterectomy-Partial, Tubal Ligation, Other Fractures: Yes (Left lower leg and foot) - *Social History Smoking Status: Former smoker # Packs/Day (cigarettes): 0 #Yrs smoked (if former smoker): 0 Alcohol Intake: never Alcohol Intake Frequency:: other Substance Use Type: denies use Occupational Status: other Housing: house Household Members: none - Psychiatric History Expresses thoughts of harming self/others: None Suicide Plan Description: No Plan Pschychiatric History:: Reports:: Schizophrenia *Family Hx:: Unable to obtain [facility] Home Medications Medication Instructions Recorded Confirmed Type atorvastatin 10 mg tablet 10 mg PO HS 30 Days #30 11/13/17 06/25/18 History lisinopril 10 1 tab PO DAILY 30 Days #30 11/13/17 06/25/18 History mg-hydrochlorothiazide 12.5 mg tablet olanzapine 10 mg tablet 10 mg PO DAILY 30 Days #30 11/13/17 06/25/18 History sertraline 100 mg tablet 100 mg PO DAILY 30 Days #30 11/13/17 06/25/18 History trazodone 150 mg tablet 150 mg PO HS 30 Days #30 11/13/17 06/25/18 History ARIPiprazole [Aripiprazole] 2 mg PO HS 06/18/18 06/26/18 History Cetirizine HCl 10 mg PO HS 06/18/18 06/25/18 History Ondansetron HCl [Ondansetron 4mg 4 mg PO Q8HP PRN 06/18/18 06/25/18 History Tablet] levoFLOXacin [Levaquin 500mg 500 mg PO 1100 06/25/18 06/25/18 History tab] Allergies Allergy/AdvReac Type Severity Reaction Status Date / Time No Known Allergies Allergy Unverified 07/31/17 14:54 Exam Vital signs and Labs for Last 24 Hours: Temp Pulse Resp BP Pulse Ox 98.2 F 88 16 110/64 98 06/28/18 04:00 06/28/18 04:00 06/28/18 04:00 06/28/18 04:00 06/28/18 07:54 I & O for Last 24 hours: Intake & Output 06/25/18 06/26/18 06/27/18 06/28/18 11:59 11:59 11:59 11:59 Intake Total 720 / 720 4306 / 4306 2365 / 2365 Balance 720 / 720 4306 / 4306 2365 / 2365 Weight 219 lb 6 oz 219 lb 6.006 oz Microbiology Reports for the Last 24 Hours: Microbiology 06/25/18 14:10 Urine,Catheterized Urine Culture - Final NO GROWTH AFTER 48 HOURS - Constitutional no acute distress - *Routine HEENT Exam Eye: Absent: conjunctival icterus - *Routine Respiratory Exam Present: CTA bilaterally - *Routine Cardiovascular Exam Present: RRR - *Routine Abdominal Exam Present: soft. Absent: tenderness Results - Labs 06/27/18 07:05 06/27/18 07:05 Assessment and Plan (1) Hypokalemia Current visit: Yes Status: Acute Category: Medical Code(s): E87.6 - Hypokalemia (2) ALETHA (acute kidney injury) Current visit: No Status: Acute Category: Medical Code(s): N17.9 - Acute kidney failure, unspecified (3) Dehydration Current visit: No Status: Acute Category: Medical Code(s): E86.0 - Dehydration (4) E. coli UTI Current visit: No Status: Acute Category: Medical Code(s): N39.0 - Urinary tract infection, site not specified; B96.20 - Unspecified Escherichia coli [E. coli] as the cause of diseases classified elsewhere (5) Nausea and vomiting Current visit: No Status: Acute Qualifiers: Vomiting type: unspecified Category: Medical Code(s): R11.2 - Nausea with vomiting, unspecified - Assessment and plan all Dx Assessment and Plan for all problems:: Patient may have some degree of gallbladder disease. Of course, inpatient HIDA scan with fatty meal is suboptimal. Nonetheless, the patient has tolerated a regular diet this morning without any difficulty whatsoever. Patient may be able to the set up for evaluation as an outpatient for consideration of cholecystectomy. However, she may have an alternative etiology such as gastroparesis for her symptoms.
--- NOTE | 2018-06-28 08:40 | Discharge Summary ---
General - General Admission date:: 06/25/18 Discharge date: 06/28/18 HPI HPI: Neelam Roger is a 67-year-old female with history of cognitive impairment, breast cancer status post mastectomy, and hypertension who presents with recurrent nausea and vomiting. She was recently admitted last week for similar symptoms with extensive workup consisting of CT abdomen, hepatitis panel, right upper quadrant ultrasound, and labs. Noted to have UTI and kidney injury during last hospitalization. Tolerated p.o. intake with no further episodes and was stable for discharge home. She represents today to the ER from adult daycare where she was noted to have projectile vomiting and nausea after eating. Additionally she complained of feeling weak/fatigued. Family at bedside during history states that over the weekend she tolerated chicken noodle soup and other food items with no problems. Had no episodes of emesis, kept down fluids and was doing well. It was not until going back to adult daycare today that she had recurrence of her emesis. Emesis described as nonbilious, nonbloody. Patient denies any abdominal pain, headache, neck pain, diarrhea, syncope. Note, imaging at last hospitalization showed concern for some mild distention of gallbladder, otherwise normal workup. Hospital Course Hospital Course: Patient was admitted to medicine for management of recurrent nausea and vomiting. Review of records from previous hospitalization showed no acute findings, however some concern for possible gallbladder. Patient had p.o. challenge during admission with tolerance of her diet and no recurrence of emesis. HIDA scan performed that did show gallbladder dysfunction with ejection fraction of 19%. Surgery consulted, and recommended no acute need for surgical intervention at this time. Did recommend further outpatient assessment and management with repeat HIDA scan in controlled setting and consideration for removal at that time. Patient otherwise tolerating replacement of electrolytes and home medications. Plan to discharge to nursing for 30-day due to difficulty in caring for self and monitor for recurrence. Hemo-dynamically stable, discharged to [facility]. Objective Vital signs: Temp Pulse Resp BP Pulse Ox 98.4 F 99 H 16 123/56 L 97 06/28/18 08:00 06/28/18 08:00 06/28/18 08:00 06/28/18 08:00 06/28/18 08:00 - *Routine HEENT Exam Head: Present: normocephalic, atraumatic Eye: Present: EOMI, PERRL ENT: Present: mucous membranes moist Comments: Edentulous - *Routine Neck Exam Present: supple, full ROM - *Routine Respiratory Exam Present: CTA bilaterally. Absent: prolonged expiratory phase, rales, wheezes - *Routine Cardiovascular Exam Present: RRR, Normal S1, Normal S2. Absent: murmur - *Routine Abdominal Exam Present: soft, normoactive bowel sounds. Absent: tenderness - *Routine Rectal Exam Patient deferred: visual exam - *Routine Exam Patient deferred: external exam - *Routine Extremities Exam Absent: cyanosis, clubbing, edema - *Routine Skin Exam Present: intact. Absent: cyanosis, erythema - *Routine Neurological Exam Present: alert. Absent: altered mental status DS: Diagnosis - Discharge Diagnosis (1) Hypokalemia Status: Acute Problem details: Resolved (2) ALETHA (acute kidney injury) Status: Acute Problem details: Resolved (3) Dehydration Status: Acute (4) E. coli UTI Status: Acute Problem details: Finishing course of Levaquin (5) Nausea and vomiting Status: Acute Problem details: Further episodes. Outpatient surgical follow- up. Discharge Plan - Patient Discharge Instructions Patient Instructions: DI for Hypokalemia, DI for Vomiting -- Adult - Follow up Plan Follow up with: Sebastian Small MD [Primary Care Provider] - 1 week Bill Martinez MD [Staff Physician] - 1 week (for outpatietn assessment of Gallbladder dysfunction) Disposition: Xfer Intermediate Care Fac Home Medications: Home Medications Medication Instructions Recorded Confirmed Type atorvastatin 10 mg tablet 10 mg PO HS 30 Days #30 11/13/17 06/25/18 History lisinopril 10 1 tab PO DAILY 30 Days #30 11/13/17 06/25/18 History mg-hydrochlorothiazide 12.5 mg tablet olanzapine 10 mg tablet 10 mg PO DAILY 30 Days #30 11/13/17 06/25/18 History sertraline 100 mg tablet 100 mg PO DAILY 30 Days #30 11/13/17 06/25/18 History trazodone 150 mg tablet 150 mg PO HS 30 Days #30 11/13/17 06/25/18 History ARIPiprazole [Aripiprazole] 2 mg PO HS 06/18/18 06/26/18 History Cetirizine HCl 10 mg PO HS 06/18/18 06/25/18 History Ondansetron HCl [Ondansetron 4mg 4 mg PO Q8HP PRN 06/18/18 06/25/18 History Tablet] levoFLOXacin [Levaquin 500mg 500 mg PO 1100 06/25/18 06/25/18 History tab] Prescriptions/Medication Reconciliation: Continue lisinopril 10 mg-hydrochlorothiazide 12.5 mg tablet 1 tab PO DAILY 30 Days #30 trazodone 150 mg tablet 150 mg PO HS 30 Days #30 olanzapine 10 mg tablet 10 mg PO DAILY 30 Days #30 sertraline 100 mg tablet 100 mg PO DAILY 30 Days #30 atorvastatin 10 mg tablet 10 mg PO HS 30 Days #30 ARIPiprazole [Aripiprazole] 2 mg PO HS Ondansetron HCl [Ondansetron 4mg Tablet] 4 mg PO Q8HP PRN PRN Reason: Nausea And Vomiting Cetirizine HCl 10 mg PO HS levoFLOXacin [Levaquin 500mg tab] 500 mg PO 1100
== END 2018-06-28 15:15 ==
LOC: ER 13:09 → 2ND 15:35 → INTOOBSV 17:39 → 2ND 17:40
PROVIDERS: ADMIT Internal Medicine Adolescent Medicine; ATTEND Internal Medicine Adolescent Medicine
CPT/HCPCS: 36415; 70450; 78226; 80048; 80053; 81001; 83690; 83735; 84100; 84484; 85025; 87086; 93005; 96365; 96375; 99285; A9537; G0378; J2405

== ENCOUNTER → 2018-07-08 09:46 | Outpatient (CLI) | payer MEDICARE, MEDICAID, SELFPAY ==
--- NOTE | 2018-07-08 09:50 | NM_ITS ---
NM hepatobiliary wo pharm HISTORY: ITS.REASON: RUQ PAIN, VOMITING ORDERING PHYSICIAN: Bill Martinez MD PATIENT AGE: 67 years COMPARISON: 06/27/2018 DOSE: 8.62 mCi technetium Choletec Fatty meal/Ensure FINDINGS: Homogeneous activity is present within the hepatic parenchyma. Activity is present in the gallbladder by 10 minutes. Activity is present in the small bowel. The fatty meal. The gallbladder ejection fraction is calculated to be 57%. No pain reported with fatty male IMPRESSION: Unremarkable hepatobiliary scan and gallbladder ejection fraction. No evidence of common or cystic duct obstruction with normal gallbladder ejection fraction
--- NOTE | 2018-07-08 12:13 | HMH.ITSHM ---
Current Home Medications as stated by this patient Neelam Roger or charter representative. []TRAZODONE SERTRALINE OLANZAPINE LISINOPRIL LEVOFLOXACIN ATORVASTATIN ONDANSETRON CETIRIZINE ARIPIPRAZOLE
== END ==
PROVIDERS: PCP Nurse Practitioner Family; Visit Provider Surgery
DX: R10.11 Right upper quadrant pain (principal); R11.10 Vomiting, unspecified
CPT/HCPCS: 78226; A9537

== ENCOUNTER → 2018-07-16 09:39 | Outpatient (CLI) | payer MEDICARE, MEDICAID, SELFPAY ==
--- NOTE | 2018-07-16 09:40 | NM_ITS ---
NM gastric emptying study CLINICAL INDICATION: ITS.REASON: right upper quad pain ORDERING PHYSICIAN: Bill Martinez MD PATIENT AGE: 67 years Comparison: None DOSE: Radiolabeled meal including 0.52 mCi sulfur colloid medial FINDINGS: One half emptying time is 35 minutes which is within normal limits. 95% of the contents had emptied at 89 minutes. No obvious reflux on the submitted images. IMPRESSION: Normal gastric emptying time
--- NOTE | 2018-07-16 10:36 | HMH.ITSHM ---
Current Home Medications as stated by this patient Neelam Roger or loan representative. []TYLENOL LISINOPRIL TRAZODONE OLANZAPINE SERTRALINE ATORVASTATIN ARIPIPRAZOLE ZOFRAN CETIRIZINE LEVAQUIN
== END ==
PROVIDERS: PCP Internal Medicine Adolescent Medicine; Visit Provider Surgery
DX: R11.2 Nausea with vomiting, unspecified (principal)
CPT/HCPCS: 78264; A9541

== ENCOUNTER → 2018-08-26 09:37 | Outpatient (POV) | payer MEDICARE, MEDICAID, SELFPAY | PROVIDERS: Visit Provider Nurse Practitioner Acute Care | DX: Z00.00 Encounter for general adult medical examination without abnormal findings (principal) ==

== ENCOUNTER → 2018-10-14 11:21 | Outpatient (POV) | payer MEDICARE, MEDICAID, SELFPAY | PROVIDERS: Visit Provider Nurse Practitioner Acute Care | DX: Z00.00 Encounter for general adult medical examination without abnormal findings (principal) ==

== ENCOUNTER → 2018-11-27 13:42 | Outpatient (CLI) | payer MEDICARE, MEDICAID, SELFPAY ==
--- NOTE | 2018-11-27 13:53 | XR_ITS ---
XR foot RT min 3V HISTORY: Foot pain ITS.REASON: ap, oblique, lateral weight bearing ORDERING PHYSICIAN: Monica Hair MD PATIENT AGE: 68 years COMPARISON: None FINDINGS: There are mild osteoarthritic changes of the navicular cuneiform joint. No fracture or dislocation. Hypertrophic changes are present dorsally at the navicular cuneiform region. Calcaneal spur is present. There is calcification along the plantar fascia posteriorly. There are mild osteoarthritic changes of the first metatarsophalangeal joint with minimal subarticular cystic change of the distal aspect of the first metatarsal. IMPRESSION: Mild osteoarthritic change, no acute finding
--- NOTE | 2018-11-27 13:53 | XR_ITS ---
XR knee RT 4V HISTORY: Knee pain ITS.REASON: ap, lateral, sunrise, fischer weight bearing ORDERING PHYSICIAN: Monica Hair MD PATIENT AGE: 68 years COMPARISON: None FINDINGS: There are mild osteoarthritic changes involving the medial lateral compartments with moderate to severe osteoarthritis of the patellofemoral joint. Subchondral cystic changes are present along the dorsal aspect of the patella with osteosclerosis. There is chondrocalcinosis in medial lateral meniscus. No fracture or dislocation. No lytic or blastic change. IMPRESSION: Osteoarthritis worse at the patellofemoral joint with chondrocalcinosis
== END ==
PROVIDERS: PCP Emergency Medicine; Visit Provider Orthopaedic Surgery
DX: M25.561 Pain in right knee (principal); M79.671 Pain in right foot
CPT/HCPCS: 73564; 73630

== ENCOUNTER → 2019-04-21 12:45 | Outpatient (CLI) | payer MEDICARE, MEDICAID, SELFPAY ==
--- NOTE | 2019-04-21 12:46 | CA_ITS ---
APPROVED REPORT EXAM: Comprehensive 2D, Doppler, and color-flow Echocardiogram Administrative Tech: Violet Vergara CRT Ht: 5 ft 6 in Wt: 286lbs BSA: 2.33 BP: 145/93 mmHg Indications: Edema, PHTN Obesity, Hyperlipidemia, Hypertension/HDD 2D Dimensions LVOT 1.80 cm (M/F) 1.5-2.5 M-Mode Dimensions RVDd 1.80 cm (0.9-2.6) LA Diam 3.50 cm (1.9-4.0) LVDd 4.70 cm (3.5-5.7) Ao Diam 3.40 cm (2.0-3.7) LVDs 3.20 cm (3.5-5.7) AV Cusp 2.10 cm (1.5-2.6) IVSd 1.10 cm (0.6-1.1) PWd 0.80 cm (0.6-1.1) EF (Teich) 59.80% FS 31.90% EDV (Teich) 102.00 mL ESV (Teich) 41.00 mL LV Diastology E/A Ratio 0.90 MED E' 6.63 (< 7 cm/sec) E'/MED E' Ratio 12.90 (>14) LAT E' 7.02 (<10 cm/sec) E/LAT E' Ratio 12.20 (>14) Aortic Valve AoV Peak Prosper. 102.00 (50-130 cm/s) AO Peak GR. 4.00 mmHg Mitral Valve MV E Max Prosper. 85.40 (40-130 cm/s) MV A Velocity 100.00 (40-130 cm/s) E/A Ratio 0.90 Pulmonary Valve NH End VMAX 110.00 cm/s PA Accel Time 127.00 (>120 msec) Tricuspid Valve TR P. Velocity 279.00 cm/s RAP Estimate 10.00 mmHg RVSP 41.00 mmHg Left Ventricle Left atrium is mildly enlarged, left ventricle is normal size, mild concentric left ventricular hypertrophy, visually estimated ejection fraction 55% with no regional wall motion abnormality. Endocardial surfaces are poorly visualized. Grade 1 diastolic dysfunction seen with tissue Doppler evidence of raise left atrial pressure. Right Ventricle Right atrium and right ventricle mildly enlarged with normal contractility. Aortic Valve Aortic valve is minimally thickened and fibrosed. There is no aortic stenosis aortic insufficiency. Mitral Valve Mitral valve is grossly normal, there is mild mitral regurgitation. Tricuspid Valve Tricuspid valve is grossly normal, there is mild tricuspid regurgitation, calculated right ventricular systolic pressure is 43 mmHg consistent with moderately elevated right ventricular systolic pressure. Pulmonic Valve Pulmonic valve is poorly visualized. Great Vessels Aortic root is normal size. Pericardium No significant pericardial effusion noted. Conclusion 1. Technically difficult study because of the patient factors and poor acoustic windows 2. Mild biatrial enlargement, normal left ventricular size, mild concentric left ventricular hypertrophy, visually estimated ejection fraction 55% with no regional wall motion abnormality, grade 1 diastolic dysfunction seen with tissue Doppler evidence of raise left atrial pressure. 3. Mildly enlarged right ventricle with normal contractility. 4. Mild mitral and tricuspid regurgitation. Calculated right ventricular systolic pressure is 43 mmHg consistent with moderately elevated right ventricular systolic pressure. Inferior vena cava was not well-visualized. 5. No significant pericardial effusion noted. Electronically signed by : Salvador Daniel, 04/22/2019 06:24:52
== END ==
PROVIDERS: PCP Emergency Medicine; Visit Provider Urology
DX: I27.20 Pulmonary hypertension, unspecified (principal)
CPT/HCPCS: 93306

== ENCOUNTER → 2019-05-05 08:54 | Outpatient (CLI) | payer MEDICARE, MEDICAID, SELFPAY ==
--- NOTE | 2019-05-05 08:56 | MM_ITS ---
PROCEDURE: MM DIG SC MAMM UNILAT LT CAD Patient Age:68Y CLINICAL INDICATION: screening History of weight gain since previous exam. Now limited movement and difficult to position., in wheelchair Right mastectomy COMPARISON: DIGMAMMS MAMMOGRAM SCREEN-FERMENTATION ENGINEER N/C from 03/03/1999 DMSUL DIG MAMM SCREENING UNILAT-LT from 07/24/2012 DMSUL DIG MAMM-SCREENING UNI-LT from 11/26/2014 DMSUL DIG MAMM-SCREENING UNI-LT from 05/05/[address] abdomen pelvis w con from 08/10/2018 TECHNIQUE: Standard left breast CC and MLO images were obtained. R2 CAD revi ewed. FINDINGS: No dominant or suspicious mass. No suspicious calcifications. lower-density breast bilaterally with generalize moderate fatty replacement. There are some extremely subtle small areas of density which had been noted on previous exams. Follow-up 1 year would be recommended and should be encouraged/emphasized and particularly since this is a higher risk patient noting right breast CA/and mastectomy IMPRESSION: Lower density breast, with generalized fatty replacement No discrete new area of significant concern . Bilateral follow-up 1 year recommended-and should be emphasized/encouraged BI-RAD Category: 2 Benign Finding(s) FOLLOW-UP: 1YR 1 Year Follow-up (A letter has been sent to the patient regarding results of the study.) The Dictated by: Mitchel Wolfe MD 05/05/2019 19:46 Electronically signed by Mitchel Wolfe MD in [place] 05/07/2019 09:05
== END ==
PROVIDERS: PCP Emergency Medicine; Visit Provider Emergency Medicine
DX: Z12.31 Encounter for screening mammogram for malignant neoplasm of breast (principal)
CPT/HCPCS: 77067

== ENCOUNTER → 2019-05-26 13:41 | Outpatient (CLI) | payer MEDICARE, MEDICAID, SELFPAY ==
--- NOTE | 2019-05-26 13:43 | XR_ITS ---
PROCEDURE: XR KNEE RT 4V CLINICAL INDICATION: knee pain COMPARISON: [id number] XR knee RT 4V from 11/27/2018 FINDINGS: No fracture or dislocation. No lytic or blastic change. There is normal mineralization. There are moderate osteoarthritic changes of the medial and lateral compartment and moderate to severe osteoarthritic change of the patellofemoral joint. There is chondrocalcinosis medially and laterally. No acute fracture or dislocation.. Other findings:None. IMPRESSION: Tricompartmental osteoarthritis most severe at the patellofemoral joint with chondrocalcinosis Dictated by: Jim Borrero MD 05/26/2019 17:14 Electronically signed by Jim Borrero MD in [place] 05/26/2019 17:14
--- NOTE | 2019-05-26 13:43 | XR_ITS ---
PROCEDURE: XR ANKLE RT MIN 3V CLINICAL INDICATION: ankle pain COMPARISON: No exams were available for comparison FINDINGS: The ankle joint has an unremarkable appearance. There are mild osteoarthritic changes of the navicular cuneiform joint and talonavicular joint. There is a small calcaneal spur and there is some coarse calcification in the plantar fascia region proximally. IMPRESSION: Degenerative changes of the midfoot. Possible plantar fasciitis Dictated by: Jim Borrero MD 05/26/2019 17:15 Electronically signed by Jim Borrero MD in [place] 05/26/2019 17:15
== END ==
PROVIDERS: PCP Emergency Medicine; Visit Provider Orthopaedic Surgery
DX: M25.561 Pain in right knee (principal); M25.571 Pain in right ankle and joints of right foot
CPT/HCPCS: 73564; 73610

== ENCOUNTER → 2019-12-26 12:03 | Outpatient (CLI) | payer MEDICARE, MEDICAID, SELFPAY ==
[2019-12-26 12:07] LABS: Microscopic, Urine URINE MICROSCOPIC (MICROSCOPIC)
[2019-12-26 12:15] LABS: Appearance,Urine CLEAR (Clear); Bilirubin,Urine Negative (Negative); Blood, Urine Negative (Negative); Color,Urine YELLOW (Yellow); Glucose,Urine (UA) Negative (Negative); Ketones,Urine Negative (Negative); Leukocyte Esterase,Urine 3+ (Negative); Nitrate,Urine POSITIVE (Negative); Protein,Urine Negative (Negative)
[2019-12-26 12:29] LABS: Bacteria,Urine 2+ /lpf; WBC,Urine 20-50 #/hpf (0-3)
== END ==
PROVIDERS: Visit Provider Emergency Medicine
DX: N39.0 Urinary tract infection, site not specified (principal)
CPT/HCPCS: 81001; 87086; 87088; 87186

== ENCOUNTER → 2020-02-12 16:54 | Outpatient (CLI) | payer MEDICARE, MEDICAID, SELFPAY ==
[2020-02-12 16:56] LABS: Microscopic, Urine URINE MICROSCOPIC (MICROSCOPIC)
[2020-02-12 18:33] LABS: Appearance,Urine CLEAR (Clear); Bilirubin,Urine Negative (Negative); Blood, Urine Negative (Negative); Color,Urine YELLOW (Yellow); Glucose,Urine (UA) Negative (Negative); Ketones,Urine Negative (Negative); Leukocyte Esterase,Urine 2+ (Negative); Nitrate,Urine POSITIVE (Negative); PH,Urine 5.5 (5.0-8.5); Protein,Urine Negative (Negative); Urobilinogen,Urine 0.2 EU/dl (0.2)
[2020-02-12 18:52] LABS: Bacteria,Urine Trace /lpf
== END ==
PROVIDERS: Visit Provider Emergency Medicine
DX: M54.5 Low back pain (principal); R41.82 Altered mental status, unspecified
CPT/HCPCS: 81001; 87086; 87088; 87186

== ENCOUNTER 2020-02-28 12:50 | Observation (INO) | payer MEDICARE, MEDICAID, SELFPAY ==
[2020-02-28 12:51] VITALS: BP 154/85; PULSE 80; RESP 18; TEMP 37.2; O2SAT 98; BMI 41.8
--- NOTE | 2020-02-28 14:12 | CT_ITS ---
Procedure: CT ABDOMEN PELVIS W CON Patient Age:69Y CLINICAL INDICATION: blood in stool GI bleeding. Bloody stool limited historian. History of prior GI bleeds but no anticoagulants COMPARISON: ABDPELW CT abdomen pelvis w con from 08/10/2018 TECHNIQUE: 75 cc Optiray 350 IV contrast utilized but no oral contrast. Helical axial images obtained with sagittal and coronal reformats. All CT scans at the facility use one or more dose reduction, viz: automated exposure control, ma/kV adjustment per patient size (including targeted exams where dose is matched to indication, i.e. head), or iterative reconstruction technique. FINDINGS: Lower thorax: Mild dependent atelectasis on. Mild pleural parenchymal scarring posterior left lung left base. Mild cardiomegaly ABDOMEN: Large patient Liver: Hepatic steatosis prominent diffuse fatty changes of liver. No masses or biliary dilatation. Scattered granulomatous calcifications liver Gallbladder: Upper normal in size but likely sludge at neck of gallbladder a difficult to exclude a tiny stone on axial image 48/versus merely volume averaging. Pancreas: No masses or peripancreatic fluid collections. Spleen: unremarkable Adrenals: unremarkable the Kidneys/ureters: unremarkable no hydronephrosis. No urinary tract calculi or obstruction. PELVIS: Hysterectomy. No adnexal masses but no free fluid at pelvis but Urinary bladder unremarkable.. .. GI tract Stomach/: Generous wall thickness stomach most likely reflects lack of distension. Bowel: No bowel dilatation or obstruction. No obvious mass or thickening.. The terminal ileum and appendix appear normal. Appendix well visualized Large bowel moderate stool at the right colon of moderate gas throughout the entire colon. Colonic diverticulosis most extensive throughout the descending colon and sigmoid but no acute diverticulitis identified. Peritoneum: No abnormal fluid collections. No obvious inflammatory changes. No free air. Small fat containing right inguinal hernia noted. No bowel loops here. Small umbilical hernia Lymph nodes: No enlarged lymph nodes apparent. Vasculature: No evidence of abdominal aortic aneurysm. No retroperitoneal hemorrhage evident. Bones: No lesions or acute fracture. Degenerative changes spine IMPRESSION: No acute findings in the abdomen or pelvis . Prominent colonic diverticulosis most extensive descending colon and sigmoid, but no acute diverticulitis evident . Prominent diffuse fatty changes of liver. . Gallbladder upper normal size suspect sludge Dictated by: Mitchel Wolfe MD 02/28/2020 22:27 Electronically signed by Mitchel Wolfe MD in [place] 02/28/2020 22:27
--- NOTE | 2020-02-28 15:14 | PC.NURSE ---
v/s delayed due to attempting to obtain blood work.
--- NOTE | 2020-02-28 16:34 | HMH.EDGENADL ---
ED Disposition Clinical Impression: GI bleed Qualifiers: GI bleed type/associated pathology: unspecified gastrointestinal hemorrhage type Qualified Code(s): K92.2 - Gastrointestinal hemorrhage, unspecified Disposition: Admitted as Observation Condition on Discharge: Fair - Critical Care Critical Care Time: No Attestation: On 02/28/20, the high probability of a clinically significant, sudden or life threatening deterioration of the following system(s) required my full and direct attention, intervention and personal management. The time I documented below is in addition to time spent performing reported procedures but includes the following listed in this critical care notation. Medical Decision Making - Medical Records Medical records reviewed: Yes: I reviewed the patient's medical records. - Carlos Inquiry Pt receiving controlled substance: No Vital Signs: 02/28/20 12:51 02/28/20 17:21 02/28/20 17:30 Temperature 99 F Temperature Source Oral Pulse Rate Pulse Rate [Left Radial] 80 68 Respiratory Rate 18 Blood Pressure Blood Pressure [Right Arm] 154/85 H 137/87 128/91 H Blood Pressure Mean [Right Arm] 108 103 103 Blood Pressure Source [Right Arm] Automatic Cuff Blood Pressure Position Blood Pressure Position [Right Arm] Sitting Sitting 02 Sat by Pulse Oximetry 98 100 Oxygen Delivery Method Room Air 02/28/20 18:43 02/28/20 19:31 Temperature 98 F Temperature Source Oral Pulse Rate 67 Pulse Rate [Left Radial] 87 Respiratory Rate 22 16 Blood Pressure 113/74 Blood Pressure [Right Arm] 131/66 Blood Pressure Mean [Right Arm] 87 Blood Pressure Source [Right Arm] Automatic Cuff Blood Pressure Position Sitting Blood Pressure Position [Right Arm] Supine 02 Sat by Pulse Oximetry 97 Oxygen Delivery Method Room Air Room Air - Lab Data Lab results reviewed: Yes: I reviewed the patient's lab results. Lab Results 02/28/20 16:40: Stool Occult Blood Positive A 02/28/20 16:40: WBC 8.3, RBC 4.72, Hgb 14.2, Hct 42.5, MCV 90.1, MCH 30.1, MCHC 33.5, RDW 13.8, Plt Count 211, MPV 8.6, Neut % (Auto) 64.5, Lymph % (Auto) 27.0, [place] % (Auto) 3.6, Eos % (Auto) 4.2, Baso % (Auto) 0.6, Neut # (Auto) 5.3, Lymph # (Auto) 2.2, [place] # (Auto) 0.3, Eos # (Auto) 0.4, Baso # (Auto) 0.1 02/28/20 16:40: Sodium 140, Potassium 4.0, Chloride 100, Carbon Dioxide 34 H, Anion Gap 10.0, BUN 11, Creatinine 0.70, Estimated Creat Clear 54, Estimated GFR 83, Est GFR ( Amer) 101, Glucose 151 H, Calcium 9.5, Total Bilirubin 0.4, AST 67 H, ALT 41, Alkaline Phosphatase 124, Total Protein 8.3 H, Albumin 4.0, Globulin 4.3 H, Albumin/Globulin Ratio 0.9 L 02/28/20 16:40: PT 10.8, INR 1.05, APTT 22.7 L 02/28/20 17:15: Blood Type A Positive, Antibody Screen Negative Result diagrams: 02/28/20 16:40 02/28/20 16:40 Orders (Tests/Meds): ED MEDICATIONS Generic Name Dose Route Start Last Admin Trade Name Freq PRN Reason Stop Dose Admin Acetaminophen 650 mg 02/28/20 19:41 Acetaminophen 325mg Tab PO 03/29/20 19:40 Q4HP PRN As Needed for Fever or Pain Atorvastatin Calcium 10 mg 02/28/20 21:00 Lipitor 10mg Tablet PO 03/29/20 20:59 HS ANUPAMA Bisoprolol Fumarate 5 mg 02/28/20 21:00 Zebeta 5mg Tablet PO 03/29/20 20:59 HS ANUPAMA Ferrous Sulfate 325 mg 02/28/20 21:00 Ferrous Sulfate 325mg Tablet PO 03/29/20 20:59 BID ANUPAMA Sodium Chloride 1,000 mls @ 50 mls/hr 02/28/20 19:41 Sod Chlor 0.9% 1000ml Bag IV 03/29/20 19:40 .Q20H ANUPAMA Ioversol 75 ml 02/28/20 18:16 02/28/20 18:17 Rad-Optiray 350 100ml Vial IV 02/28/20 18:17 75 ml ONCE ONE Administration Protocol Non-Formulary Medication 7.5 mg 02/28/20 21:00 Olanzapine [Olanzapine] PO 03/29/20 20:59 BID ANUPAMA Non-Formulary Medication 100 mg 02/28/20 21:00 Trazodone Hcl PO 03/29/20 20:59 HS ANUPAMA Ondansetron HCl 4 mg 02/28/20 19:41 Zofran 4mg/2ml Vial IV 03/29/20 19:40 Q8HP P
[2020-02-28 16:44] LABS: Basophils # 0.1 K/mm3 (0-0.2); Basophils % 0.6 % (0.1-2.0); Eosinophils # 0.4 K/mm3 (0.0-0.4); Eosinophils % 4.2 % (0.1-12.0); Hematocrit 42.5 % (37.0-47.0); Hemoglobin 14.2 g/dL (12.2-16.2); Lymphocytes # 2.2 K/mm3 (0.7-4.5); Mean Corpuscular HGB Conc 33.5 g/dL (31.8-35.4); Mean Corpuscular Hemoglobin 30.1 pg (27.0-31.2); Mean Corpuscular Volume 90.1 fl (81-99); Mean Platelet Volume 8.6 fl (7.4-10.4); Monocytes # 0.3 K/mm3 (0.1-1.0); Monocytes % 3.6 % (1.7-9.3); Neutrophils # 5.3 K/mm3 (1.8-7.8); Neutrophils % 64.5 % (37.0-80.0); Occult Blood,Stool Positive (Negative); Platelet Count 211 K/mm3 (142-424); Red Blood Count 4.72 M/mm3 (4.20-5.40); Red Cell Distribution Width 13.8 % (11.5-17.5); White Blood Count 8.3 K/mm3 (4.8-10.8)
[2020-02-28 16:52] LABS: Alanine Aminotransferase 41 U/L (12-78); Albumin/Globulin Ratio 0.9 (1.1-1.8); Alkaline Phosphatase 124 U/L (38-126); Aspartate Amino Transferase 67 U/L (14-36); Bilirubin,Total 0.4 mg/dl (0.2-1.3); Blood Urea Nitrogen 11 mg/dl (7-17); Calcium 9.5 mg/dl (8.4-10.2); Carbon Dioxide 34 mmol/L (22.0-30.0); Chloride 100 mmol/L (98-107); Creatinine Clearance Estimated 54 mL/min (50-200); Estimated Glomerular Filt Rate 83 ml/min (>60); GFR (African American) 101 ML/MIN (>60); Globulin 4.3 g/dL (1.3-3.2); Glucose 151 mg/dl (74-100); Sodium 140 mmol/L (136-145); Total Protein,Serum 8.3 g/dl (6.3-8.2)
[2020-02-28 17:10] LABS: Activated Partial Thrombo Time 22.7 seconds (23.6-34.0); INR 1.05 (0.9-1.1); Prothrombin Time 10.8 seconds (9.4-11.8)
[2020-02-28 17:21] VITALS: BP 137/87; PULSE 68
[2020-02-28 17:30] VITALS: BP 128/91; O2SAT 100
--- NOTE | 2020-02-28 17:49 | PC.NURSE ---
pt incontinent of stool, maroon stool with blood clots noted.
--- NOTE | 2020-02-28 18:26 | INFXCTL.NOTE ---
attempted to call report to floor. nurse states I will return call giving pt meds.
--- NOTE | 2020-02-28 18:39 | PC.NURSE ---
report called to floor
[2020-02-28 18:43] VITALS: BP 131/66; PULSE 87; RESP 22; O2SAT 97
--- NOTE | 2020-02-28 19:27 | PC.NURSE ---
PT ARRIVED TO THE FLOOR VIA STRETCHER FROM ED AT 1926.
[2020-02-28 19:31] VITALS: BP 113/74; PULSE 67; RESP 16; TEMP 36.6; O2SAT 98
[2020-02-28 19:36] VITALS: BP 123/94; PULSE 100; RESP 18; TEMP 36.9; O2SAT 97; BMI 42.8
--- NOTE | 2020-02-29 03:30 | PC.NURSE ---
A&O X4 BUT POOR HISTORIAN. PT RESTED WELL WITH EYES CLOSED THIS SHIFT. DENIES PAIN. TOLERATED RA WELL WITH NO C/O SOA. PT NOTED WEARING A MASK ON HER FACE. SHE STATES SHE FEELS SAFER WITH IT ON WHILE AT THE HOSPITAL. HYPERACTIVE BOWEL SOUNDS NOTED IN ALL 4 QUADS UPON AUSCULTATION. SINCE ARRIVING ON THIS UNIT PT HAS NOT HAD A BOWEL MOVEMENT, BUT NOTED TO BE PASSING FLATULENCE. PURWICK CATH WAS PUT INTO PLACE FOR URINE INCONTINENCE. PT STATES SHE IS INCONTINENT OF B&B. EXPIRATORY RHONCHI NOTED IN RIGHT LOBE T/O UPON AUSCULTATION. LEFT LOB NOTED CLEAR T/O. PT DENIES COUGH. VSS. CALL LIGHT WITHIN REACH. REMAINS SAFE. WILL CONTINUE TO MONITOR.
[2020-02-29 03:36] VITALS: BP 104/65; PULSE 85; RESP 18; TEMP 36.7; O2SAT 93
[2020-02-29 05:00] VITALS: BMI 43.4
--- NOTE | 2020-02-29 05:49 | PC.NURSE ---
NO URINE OUTPUT SINCE PUTTING THE PURWICK CATH IN PLACE. PT HAD A LARGE UNMEASURED INCONTINENT VOID PRIOR TO HAVING THE PURWICK IN PLACE.
[2020-02-29 08:00] VITALS: BP 136/83; PULSE 92; RESP 18; TEMP 36.6; O2SAT 95
[2020-02-29 08:00] LABS: Basophils % 0.3 % (0.1-2.0); Eosinophils # 0.3 K/mm3 (0.0-0.4); Eosinophils % 3.7 % (0.1-12.0); Lymphocytes # 1.7 K/mm3 (0.7-4.5); Lymphocytes % 23.6 % (10-50); Mean Corpuscular Hemoglobin 29.9 pg (27.0-31.2); Mean Corpuscular Volume 90.4 fl (81-99); Mean Platelet Volume 9.2 fl (7.4-10.4); Monocytes # 0.3 K/mm3 (0.1-1.0); Neutrophils # 4.9 K/mm3 (1.8-7.8); Neutrophils % 68.3 % (37.0-80.0); Platelet Count 169 K/mm3 (142-424); Red Blood Count 3.99 M/mm3 (4.20-5.40); Red Cell Distribution Width 13.9 % (11.5-17.5); White Blood Count 7.1 K/mm3 (4.8-10.8)
[2020-02-29 08:02] LABS: Hemoglobin 11.9 g/dL (12.2-16.2)
--- NOTE | 2020-02-29 08:07 | HMH.HP ---
*Admission Date: 02/29/20 *Chief complaint: rectal bleeding *History of present illness: this pt was sent from [facility] with lower gi bleed - pt with crampy abd pain - pt was seen in the ed The patient is brought in by ambulance from [facility] for possible GI bleed. Reportedly had a large dark bowel movement today. The patient denies any abdominal pain or vomiting. She says she was told that she passed a dark stool, but she did not see it herself. The patient is a poor historian. Her [facility] transfer record indicates a history of dementia, schizophrenia, depression, anxiety, mild intellectual disabilities. It does not appear that she is on any anticoagulants pt was admitted for eval and treatment [facility] History I have reviewed the patient's past medical history: Yes Medical History: Reports:: Anxiety, Cancer (BREAST), Depression, Gastrointestinal Bleed, Hyperlipidemia, Hypertension, Renal Insufficiency Denies:: Diabetes Mellitus Type 1, Diabetes Mellitus Type 2, MRSA *Have you ever received a pneumonia vaccine?: No (PT POOR HISTOARIAN) *Have you received a flu vaccine this season?: No (PT POOR HISTORIAN) Other Medical History: Reports: Anemia Laterality Cases: Right: Mastectomy Other Surgeries: Yes: No Previous Surgery, Cancer Surgery, Hysterectomy-Partial, Tubal Ligation, Other Amputation: No Fractures: Yes (Left lower leg and foot) - *Social History Smoking Status: Former smoker Tobacco Type: cigarettes # Packs/Day (cigarettes): 0 #Yrs smoked (if former smoker): 0 Alcohol Intake: never Alcohol Intake Frequency:: other Substance Use Type: denies use *Occupational Status:: disabled Housing: other Household Members: other *Travel in the last 8 weeks: None - Psychiatric History Pschychiatric History:: Reports:: Anxiety, Depression, Schizophrenia Family Hx:: Unable to obtain Review of Systems - Review of Systems Review of systems:: pertinent systems reviewed and negative unless documented below - Constitutional Denies fever(s) - Eyes Denies discharge - ENT Denies sore throat - *Cardiovascular Denies chest pain at rest, Denies shortness of breath - *Respiratory Denies cough - *Gastrointestinal Reports abdominal pain, Reports black, tarry stools - *Genitourinary Denies blood in urine - *Musculoskeletal Denies joint pain - Integumentary/Breasts Denies rash - *Neurologic Denies seizure-like activity Meds Home Medications Medication Instructions Recorded Confirmed Type atorvastatin 10 mg tablet 10 mg PO HS 30 Days #30 11/13/17 02/29/20 History sertraline 100 mg tablet 100 mg PO DAILY 30 Days #30 11/13/17 02/29/20 History Cetirizine HCl 10 mg PO HS 06/18/18 02/29/20 History Lactulose [Constulose] 20 gm PO DAILYP PRN 08/09/18 02/29/20 History fluticasone propionate 50 1 spray INTRANASAL DAILY 02/28/19 02/29/20 History mcg/actuation nasal spray,suspension trazodone 150 mg tablet 100 mg PO HS 30 Days #20.001 tab 08/20/19 02/29/20 History Bisoprolol Fumarate [Bisoprolol 5 mg PO HS 02/28/20 02/29/20 History 5mg Tablet] Ferrous Sulfate [Ferrous Sulfate 325 mg PO DAILY 02/28/20 02/29/20 History 325mg Tab] Furosemide [Furosemide 40MG tAB] 40 mg PO DAILY 02/28/20 02/29/20 History Mag Carb/Aluminum Hydrox/Algin 30 ml PO Q4HP PRN 02/28/20 02/29/20 History [Acid Gone Antacid Liquid] Multivitamin,Ther and Minerals 1 each PO DAILY 02/28/20 02/29/20 History [Vitamin and Minerals] OLANZapine [Olanzapine] 7.5 mg PO BID 02/28/20 02/29/20 History cephALEXin [Keflex 500mg Cap] 500 mg PO BID 02/28/20 02/29/20 History guaiFENesin [Robafen] 10 ml PO TID 02/28/20 02/29/20 History Acetaminophen 500 mg PO Q4HP PRN 02/29/20 02/29/20 History ondansetron HCL [Ondansetron HCl] 4 mg PO Q8HP PRN 02/29/20 02/29/20 History Allergies Allergy/AdvReac Type Severity Reaction Status Date / Time No Known Allergies Allergy Verified 02/01/20 16:34 Exam Vital signs and Labs for Last 24 Hours:
--- NOTE | 2020-02-29 11:15 | P.CONPHA_ITS ---
[facility] Pharmacy VTE Monitoring - Patient Demographics Admission date: 02/29/20 Report Date: 02/29/20 Time: 11:15 Allergies/Adverse Reactions: Patient Allergies No Known Allergies Allergy (Verified 02/01/20 16:34) Height: 1.73 m Weight: 129.9 kg Patient Problems: Current Active Problems GI bleed (Acute) Obesity (Acute) Diverticulosis of colon with hemorrhage (Acute) HTN (hypertension) (Acute) LVH (left ventricular hypertrophy) (Acute) Diastolic dysfunction (Acute) - VTE Risk Labs: VTE Related Lab Results Hgb 11.9 g/dL (12.2-16.2) L D 02/29/20 07:55 Hct 36.0 % (37.0-47.0) L 02/29/20 07:55 Plt Count 169 K/mm3 (142-424) 02/29/20 07:55 PT 10.8 seconds (9.4-11.8) 02/28/20 16:40 INR 1.05 (0.9-1.1) 02/28/20 16:40 APTT 22.7 seconds (23.6-34.0) L 02/28/20 16:40 BUN 11 mg/dl (7-17) 02/28/20 16:40 Creatinine 0.70 mg/dl (0.52-1.04) 02/28/20 16:40 Estimated Creat Clear 54 mL/min (50-200) 02/28/20 16:40 VTE Score: 2 VTE Risk Level: Very Low Risk - Prophylaxis Types of VTE Prophylaxis: TEDS Knee High (IVONNE HOSE ORDERED) Location of Applied Device: Bilateral Lower Extremeties
[2020-02-29 15:38] VITALS: BP 139/75; PULSE 97; RESP 18; TEMP 37.2; O2SAT 97
[2020-02-29 17:02] LABS: Basophils % 0.3 % (0.1-2.0); Eosinophils # 0.3 K/mm3 (0.0-0.4); Eosinophils % 3.2 % (0.1-12.0); Hematocrit 35.8 % (37.0-47.0); Hemoglobin 11.5 g/dL (12.2-16.2); Lymphocytes # 2.6 K/mm3 (0.7-4.5); Lymphocytes % 28.6 % (10-50); Mean Corpuscular HGB Conc 32.1 g/dL (31.8-35.4); Mean Corpuscular Hemoglobin 29.2 pg (27.0-31.2); Mean Platelet Volume 8.5 fl (7.4-10.4); Monocytes # 0.4 K/mm3 (0.1-1.0); Monocytes % 4.4 % (1.7-9.3); Neutrophils # 5.7 K/mm3 (1.8-7.8); Neutrophils % 63.5 % (37.0-80.0); Platelet Count 169 K/mm3 (142-424); Red Blood Count 3.94 M/mm3 (4.20-5.40); Red Cell Distribution Width 13.9 % (11.5-17.5)
--- NOTE | 2020-02-29 17:34 | PC.NURSE ---
PATIENT IS A&O X3, LUNGS CLEAR, PULSES EQUAL. PATIENT HAD A VERY LARGE BLACK, LIQUID AND FOUL SMELLING BOWEL MOVEMENT. NOLVIA MARLOW SPOKE WITH DR. JEAN-BAPTISTE, CBC ORDERED, IF HGB LESS THAN 9, ADMINISTER 4 UNITS OF RBC. HGB WAS 11.4. WILL CONTINUE TO MONITOR. NO OTHER CONCERNS AT THIS TIME.
[2020-02-29 21:00] VITALS: BP 117/61; PULSE 95; RESP 18; TEMP 37.4; O2SAT 95
--- NOTE | 2020-02-29 22:02 | PC.NURSE ---
PT HAD A SMALL BM. STOOL WAS STUCK TO PT'S LEGS AND PURWICK CATH. UNABLE TO WEIGH STOOL AT THIS TIME.
[2020-03-01 03:20] VITALS: BP 151/86; PULSE 86; RESP 16; TEMP 36.8; O2SAT 97
--- NOTE | 2020-03-01 04:36 | PC.NURSE ---
A&O X4. NO ACUTE CHANGES NOTED FROM PREVIOUS SHIFT. BILATERAL LUNGS NOTED CLEAR T/O UPON AUSCULTATION. TOLERATED RA WELL WITH NO SOA. SMALL BM NOTED THIS SHIFT. REMAINS INCONTINENT OF B&B. PURWICK IN PLACE. URINE NOTED DARK YELLOW AND CLEAR IN COLOR. DENIES PAIN. DENIES ABD TENDERNESS UPON PALPATION. VSS. REMAINS SAFE. Q2H WITH BARIATRIC PRESSURE RELIEVING MATTRESS. CALL LIGHT WITHIN REACH. WILL CONTINUE TO MONITOR.
[2020-03-01 05:00] VITALS: BMI 44.1
[2020-03-01 07:33] LABS: Basophils % 0.3 % (0.1-2.0); Eosinophils # 0.3 K/mm3 (0.0-0.4); Eosinophils % 3.6 % (0.1-12.0); Hemoglobin 11.7 g/dL (12.2-16.2); Lymphocytes # 2.4 K/mm3 (0.7-4.5); Lymphocytes % 28.5 % (10-50); Mean Corpuscular HGB Conc 33.5 g/dL (31.8-35.4); Mean Corpuscular Hemoglobin 29.9 pg (27.0-31.2); Mean Corpuscular Volume 89.4 fl (81-99); Mean Platelet Volume 9.2 fl (7.4-10.4); Monocytes # 0.4 K/mm3 (0.1-1.0); Neutrophils # 5.2 K/mm3 (1.8-7.8); Neutrophils % 62.6 % (37.0-80.0); Platelet Count 175 K/mm3 (142-424); Red Blood Count 3.91 M/mm3 (4.20-5.40); White Blood Count 8.4 K/mm3 (4.8-10.8)
[2020-03-01 08:00] VITALS: BP 130/76; PULSE 87; RESP 17; TEMP 37; O2SAT 99
--- NOTE | 2020-03-01 08:25 | PC.NURSE ---
called office and spoke with sharmin about consult
--- NOTE | 2020-03-01 08:53 | HMH.GSCON ---
*Admission Date: 02/29/20 *Reason for consult:: GI bleeding *History of present illness: Patient is a 69-year-old female who is a assisted resident with cognitive impairment and documented history of schizophrenia. She is a poor historian. She was admitted several days ago with signs and symptoms consistent with lower GI bleed . She had passed some dark foul-smelling bowel movement. Surgical consultation was ordered this morning. Review of Systems - Review of Systems Review of systems:: unable to obtain - *Neurologic Denies seizure-like activity [facility] History Medical History: Reports:: Anxiety, Cancer (BREAST), Depression, Gastrointestinal Bleed, Hyperlipidemia, Hypertension, Renal Insufficiency Denies:: Diabetes Mellitus Type 1, Diabetes Mellitus Type 2, MRSA *Have you ever received a pneumonia vaccine?: No (PT POOR HISTOARIAN) *Have you received a flu vaccine this season?: No (PT POOR HISTORIAN) Other Medical History: Reports: Anemia Laterality Cases: Right: Mastectomy Other Surgeries: Yes: No Previous Surgery, Cancer Surgery, Hysterectomy-Partial, Tubal Ligation, Other Amputation: No Fractures: Yes (Left lower leg and foot) - *Social History Smoking Status: Former smoker Tobacco Type: cigarettes # Packs/Day (cigarettes): 0 #Yrs smoked (if former smoker): 0 Alcohol Intake: never Alcohol Intake Frequency:: other Substance Use Type: denies use *Occupational Status:: disabled Housing: other Household Members: other *Travel in the last 8 weeks: None - Psychiatric History Pschychiatric History:: Reports:: Anxiety, Depression, Schizophrenia Family Hx:: Unable to obtain Meds Home Medications Medication Instructions Recorded Confirmed Type atorvastatin 10 mg tablet 10 mg PO HS 30 Days #30 11/13/17 02/29/20 History sertraline 100 mg tablet 100 mg PO DAILY 30 Days #30 11/13/17 02/29/20 History Cetirizine HCl 10 mg PO HS 06/18/18 02/29/20 History Lactulose [Constulose] 20 gm PO DAILYP PRN 08/09/18 02/29/20 History fluticasone propionate 50 1 spray INTRANASAL DAILY 02/28/19 02/29/20 History mcg/actuation nasal spray,suspension trazodone 150 mg tablet 100 mg PO HS 30 Days #20.001 tab 08/20/19 02/29/20 History Bisoprolol Fumarate [Bisoprolol 5 mg PO HS 02/28/20 02/29/20 History 5mg Tablet] Ferrous Sulfate [Ferrous Sulfate 325 mg PO DAILY 02/28/20 02/29/20 History 325mg Tab] Furosemide [Furosemide 40MG tAB] 40 mg PO DAILY 02/28/20 02/29/20 History Mag Carb/Aluminum Hydrox/Algin 30 ml PO Q4HP PRN 02/28/20 02/29/20 History [Acid Gone Antacid Liquid] Multivitamin,Ther and Minerals 1 each PO DAILY 02/28/20 02/29/20 History [Vitamin and Minerals] OLANZapine [Olanzapine] 7.5 mg PO BID 02/28/20 02/29/20 History cephALEXin [Keflex 500mg Cap] 500 mg PO BID 02/28/20 02/29/20 History guaiFENesin [Robafen] 10 ml PO TID 02/28/20 02/29/20 History Acetaminophen 500 mg PO Q4HP PRN 02/29/20 02/29/20 History ondansetron HCL [Ondansetron HCl] 4 mg PO Q8HP PRN 02/29/20 02/29/20 History Allergies Allergy/AdvReac Type Severity Reaction Status Date / Time No Known Allergies Allergy Verified 02/01/20 16:34 Exam Vital signs and Labs for Last 24 Hours: Temp Pulse Resp BP Pulse Ox 98.6 F 87 17 130/76 99 03/01/20 08:00 03/01/20 08:00 03/01/20 08:00 03/01/20 08:00 03/01/20 08:00 Laboratory Results - last 24 hr 02/28/20 17:15: Blood Type A Positive, Antibody Screen Negative, Crossmatch (AHG) See Detail 02/29/20 16:50: WBC 9.0 D, RBC 3.94 L, Hgb 11.5 L, Hct 35.8 L, MCV 91.0, MCH 29.2, MCHC 32.1, RDW 13.9, Plt Count 169, MPV 8.5, Neut % (Auto) 63.5, Lymph % (Auto) 28.6, [place] % (Auto) 4.4, Eos % (Auto) 3.2, Baso % (Auto) 0.3, Neut # (Auto) 5.7, Lymph # (Auto) 2.6, [place] # (Auto) 0.4, Eos # (Auto) 0.3, Baso # (Auto) 0.0 03/01/20 07:10: WBC 8.4, RBC 3.91 L, Hgb 11.7 L, Hct 35.0 L, MCV 89.4, MCH 29.9, MCHC 33.5, RDW 14.0, Plt Count 175, MPV 9.2, Neut % (Auto) 62.6, Lymph % (Auto) 28.5, [place] % (Auto)
--- NOTE | 2020-03-01 10:08 | SW/DCPLANNER ---
Addendum entered by Maricruz Mckeon 03/02/20 16:52: This patient will require a NEGATIVE COVID nasal swab prior to admission back to [facility] per Lorena. Addendum entered by Maricruz Mckeon 03/02/20 10:47: Updates on this patient have been sent to Lorena at [place]. Original Note: This patient currently resides at [facility] level of care per Lorena. I will continue to follow up with Lorena regarding this patient.
--- NOTE | 2020-03-01 12:10 | HMH.ACPN2 ---
Internal Medicine - PN: Subj *Date: 03/01/20 *Time: 12:10 Interval history: No problems noted by staff. No further bleeding. Hgb stable at 11.7 Plan is for endoscopy soon. Exam Vital signs and Labs for Last 24 Hours: Temp Pulse Resp BP Pulse Ox 98.6 F 87 17 130/76 99 03/01/20 08:00 03/01/20 08:00 03/01/20 08:00 03/01/20 08:00 03/01/20 08:00 Laboratory Results - last 24 hr 02/28/20 17:15: Blood Type A Positive, Antibody Screen Negative, Crossmatch (AHG) See Detail 02/29/20 16:50: WBC 9.0 D, RBC 3.94 L, Hgb 11.5 L, Hct 35.8 L, MCV 91.0, MCH 29.2, MCHC 32.1, RDW 13.9, Plt Count 169, MPV 8.5, Neut % (Auto) 63.5, Lymph % (Auto) 28.6, [place] % (Auto) 4.4, Eos % (Auto) 3.2, Baso % (Auto) 0.3, Neut # (Auto) 5.7, Lymph # (Auto) 2.6, [place] # (Auto) 0.4, Eos # (Auto) 0.3, Baso # (Auto) 0.0 03/01/20 07:10: WBC 8.4, RBC 3.91 L, Hgb 11.7 L, Hct 35.0 L, MCV 89.4, MCH 29.9, MCHC 33.5, RDW 14.0, Plt Count 175, MPV 9.2, Neut % (Auto) 62.6, Lymph % (Auto) 28.5, [place] % (Auto) 5.0, Eos % (Auto) 3.6, Baso % (Auto) 0.3, Neut # (Auto) 5.2, Lymph # (Auto) 2.4, [place] # (Auto) 0.4, Eos # (Auto) 0.3, Baso # (Auto) 0.0 I & O for Last 24 hours: Intake & Output 02/27/20 02/28/20 02/29/20 03/01/20 23:59 23:59 23:59 23:59 Intake Total 684 / 684 1347 / 1347 Output Total 500 / 500 Balance 684 / 684 847 / 847 Weight 282 lb 10.122 oz 286 lb 6.087 oz 291 lb 7.218 oz - Constitutional no acute distress, obese, cooperative - *Routine HEENT Exam Head: Present: normocephalic Eye: Absent: conjunctival icterus ENT: Present: mucous membranes moist - *Routine Neck Exam Present: supple. Absent: tenderness - *Routine Respiratory Exam Present: CTA bilaterally. Absent: accessory muscle use, rales, respiratory distress, rhonchi, stridor, wheezes, crackles - *Routine Cardiovascular Exam Present: RRR, Normal S1, Normal S2. Absent: murmur - *Routine Abdominal Exam Present: soft, obese. Absent: tenderness, distended, rebound, guarding, mass - *Routine Extremities Exam Present: IVONNE stockings. Absent: cyanosis, clubbing, edema, calf tenderness, pallor - *Routine Skin Exam Present: intact. Absent: cyanosis, jaundice - Routine Psychiatric Exam Present: cooperative. Absent: good insight, good judgment Assessment and Plan (1) Lower GI bleeding Current visit: No Status: Acute Category: Medical Code(s): K92.2 - Gastrointestinal hemorrhage, unspecified (2) Schizoaffective disorder Current visit: No Status: Chronic Qualifiers: Schizoaffective disorder type: depressive Qualified Code(s): F25.1 - Schizoaffective disorder, depressive type Category: Medical Code(s): F25.9 - Schizoaffective disorder, unspecified (3) Obesity Current visit: Yes Status: Acute Qualifiers: Obesity type: due to excess calories Obesity classification: adult class 3 (BMI >= 40) Serious obesity comorbidity presence: with serious comorbidity Body mass index: BMI 40.0-44.9 Qualified Code(s): E66.01 - Morbid (severe) obesity due to excess calories; Z68.41 - Body mass index (BMI) 40.0-44.9, adult Category: Medical Code(s): E66.9 - Obesity, unspecified (4) Diverticulosis of colon with hemorrhage Current visit: Yes Status: Acute Category: Medical Code(s): K57.31 - Diverticulosis of large intestine without perforation or abscess with bleeding (5) HTN (hypertension) Current visit: Yes Status: Acute Qualifiers: Hypertension type: essential hypertension Qualified Code(s): I10 - Essential (primary) hypertension Category: Medical Code(s): I10 - Essential (primary) hypertension (6) LVH (left ventricular hypertrophy) Current visit: Yes Status: Acute Category: Medical Code(s): I51.7 - Cardiomegaly (7) Diastolic dysfunction Current visit: Yes Status: Acute Category: Medical Code(s): I51.89 - Other ill-defined heart diseases - Assessment and plan all Dx Assessment and P
[2020-03-01 12:47] VITALS: BMI 44.1
[2020-03-01 16:00] VITALS: BP 114/68; PULSE 87; RESP 19; TEMP 37; O2SAT 94
--- NOTE | 2020-03-01 18:15 | PC.NURSE ---
PATIENT A&O X3, LUNGS CLEAR, PULSES EQUAL. THIS AM THIS RN AND LOIDA SIFUENTES HELPED PATIENT OUT OF BED AND PIVOT TO THE CHAIR. PATIENT DID WELL. PATIENT REQUESTED TO GO BACK TO BED THIS AFTERNOON, ARIELLE MARISCAL AND NATA CANTU RN ASSISTED PATIENT BACK INTO BED, PER ARIELLE PATIENT WAS WEAK, UNSTEADY AND HAD FEAR OF FALLING. PATIENT HAS NOT HAD A BOWEL MOVEMENT THUS FAR. NO OTHER CONCERNS AT THIS TIME.
--- NOTE | 2020-03-01 19:07 | PC.NURSE ---
report given to gómez
[2020-03-01 20:00] VITALS: BP 116/57; PULSE 89; RESP 18; TEMP 37.6; O2SAT 98
[2020-03-02] VITALS (18 sets, daily range): BP systolic 115–156; BP diastolic 65–90; PULSE 18–96; RESP 16–20; TEMP 36.3–37.1; O2SAT 94–98; BMI 43.4
[2020-03-02 06:27] LABS: Basophils % 0.2 % (0.1-2.0); Eosinophils # 0.4 K/mm3 (0.0-0.4); Eosinophils % 4.1 % (0.1-12.0); Hematocrit 33.7 % (37.0-47.0); Hemoglobin 11.2 g/dL (12.2-16.2); Lymphocytes # 2.7 K/mm3 (0.7-4.5); Lymphocytes % 30.8 % (10-50); Mean Corpuscular HGB Conc 33.2 g/dL (31.8-35.4); Mean Corpuscular Hemoglobin 30.2 pg (27.0-31.2); Mean Platelet Volume 8.7 fl (7.4-10.4); Monocytes # 0.4 K/mm3 (0.1-1.0); Monocytes % 4.6 % (1.7-9.3); Neutrophils # 5.2 K/mm3 (1.8-7.8); Neutrophils % 60.3 % (37.0-80.0); Platelet Count 177 K/mm3 (142-424); Red Blood Count 3.71 M/mm3 (4.20-5.40); Red Cell Distribution Width 14.2 % (11.5-17.5); White Blood Count 8.7 K/mm3 (4.8-10.8)
--- NOTE | 2020-03-02 06:38 | PC.NURSE ---
No acute changes. No BM lastnight. Pt is incontinent of B&B. Purwick was replaced this shift along w/ linens. Skin assessed and no breakdown noted to back side. Pt turned Q2H using bariatric turn assist. No complaints reported to staff. VSS. Consent for EGD signed and placed in chart.
[2020-03-02 06:49] LABS: Adenovirus,PCR Not Detected (NotDetected); Bordetella Pertussis Not Detected (NotDetected); Chlamydophila Pneumoniae, PCR Not Detected (NotDetected); Coronavirus 19, PCR Not Detected (NotDetected); Coronavirus 229E Not Detected (NotDetected); Coronavirus NL63 Not Detected (NotDetected); Coronavirus OC43 Not Detected (NotDetected); Coronovirus HKU1,PCR Not Detected (NotDetected); Human Metapneumovirus Not Detected (NotDetected); Influenza A, PCR Not Detected (NotDetected); Influenza AH1, 2009 Not Detected (NotDetected); Influenza AH1, PCR Not Detected (NotDetected); Influenza AH3,PCR Not Detected (NotDetected); Influenza B, PCR Not Detected (NotDetected); Mycoplasma Pneumoniae, PCR Not Detected (NotDected); Parainfluenza 1, PCR Not Detected (NotDetected); Parainfluenza 2, PCR Not Detected (NotDetected); Parainfluenza 3, PCR Not Detected (NotDetected); Parainfluenza 4, PCR Not Detected (NotDetected); Respiratory Syncytial Virus Not Detected (NotDetected); Rhinovirus/Enterovirus Not Detected (NotDetected)
--- NOTE | 2020-03-02 09:41 | PC.NURSE ---
Pt down for egd at 1083.
--- NOTE | 2020-03-02 09:44 | HMH.ANESCL ---
[facility] Anesthesia Checklist - Patient Identification Patient Identification: Arm Band - Structural Data Admitted From: Home Planned Operative Procedure/s: EGD Consent for Planned Operative Procedure(s) Verified: Yes Verified Documents: Surgical Consent, History and Physical - NPO Status Verified Time NPO: 00:00 - Additional verifications Anesthesia Reactions: No - Airway Assessment C-Spine Mobility Assessed: Yes (mp2) TMJ Mobility Assessed: Yes Dentition: Edentulous - Neurological Assessment Level of Consciousness: Awake, Alert - Anesthesia Plan Anesthesia Risk discussed: Yes Anesthesia Plan: Verified ASA Class: III Anesthesia Type: MAC [facility] History I have reviewed the patient's past medical history: Yes Medical History: Reports:: Anxiety, Cancer (BREAST), Depression, Gastrointestinal Bleed, Hyperlipidemia, Hypertension, Renal Insufficiency Denies:: Diabetes Mellitus Type 1, Diabetes Mellitus Type 2, MRSA *Have you ever received a pneumonia vaccine?: No (PT POOR HISTOARIAN) *Have you received a flu vaccine this season?: No (PT POOR HISTORIAN) Other Medical History: Reports: Anemia Anesthesia experience/problems:: nac Laterality Cases: Right: Mastectomy Other Surgeries: Yes: Cancer Surgery, Hysterectomy-Partial, Tubal Ligation, Other Amputation: No Fractures: Yes (Left lower leg and foot) - *Social History Smoking Status: Former smoker Tobacco Type: cigarettes # Packs/Day (cigarettes): 0 #Yrs smoked (if former smoker): 0 Alcohol Intake: never Alcohol Intake Frequency:: other Substance Use Type: denies use *Occupational Status:: disabled Housing: other Household Members: other *Travel in the last 8 weeks: None - Psychiatric History Pschychiatric History:: Reports:: Anxiety, Depression, Schizophrenia Family Hx:: Unable to obtain
--- NOTE | 2020-03-02 09:45 | HMH.ACPN2 ---
Internal Medicine - PN: Subj *Date: 03/02/20 *Time: 10:10 Interval history: 69 YOF lying in bed, denies any diarrhea, SOA, or Abd during night. She reports she is feeling better, H/H 11.2/33.7. Planning for EGD w/ Gen Surg today, she has been NPO Exam Vital signs and Labs for Last 24 Hours: Temp Pulse Resp BP Pulse Ox 98.3 F 86 18 142/69 H 95 03/02/20 08:00 03/02/20 08:00 03/02/20 08:00 03/02/20 08:00 03/02/20 08:00 Laboratory Results - last 24 hr 03/02/20 06:13: WBC 8.7, RBC 3.71 L, Hgb 11.2 L, Hct 33.7 L, MCV 91.0, MCH 30.2, MCHC 33.2, RDW 14.2, Plt Count 177, MPV 8.7, Neut % (Auto) 60.3, Lymph % (Auto) 30.8, [place] % (Auto) 4.6, Eos % (Auto) 4.1, Baso % (Auto) 0.2, Neut # (Auto) 5.2, Lymph # (Auto) 2.7, [place] # (Auto) 0.4, Eos # (Auto) 0.4, Baso # (Auto) 0.0 03/02/20 06:40: Chlamy pneumoniae PCR Not detected, Adenovirus (PCR) Not detected, B. pertussis DNA (PCR) Not detected, Coronavirus OC43 (PCR) Not detected, Coronavirus HKU1 (PCR) Not detected, Coronavirus 229E (PCR) Not detected, COVID-19 PCR Not detected, Coronavirus NL63 (PCR) Not detected, Human Metapneumovir PCR Not detected, Influenza A (H1) PCR Not detected, Influ A (H1N1/09) PCR Not detected, Influenza A (H3) PCR Not detected, Influenza Type A (PCR) Not detected, Influenza Type B (PCR) Not detected, M. pneumoniae (PCR) Not detected, Parainfluenza 1 (PCR) Not detected, Parainfluenza 2 (PCR) Not detected, Parainfluenza 3 (PCR) Not detected, Parainfluenza 4 (PCR) Not detected, RSV (PCR) Not detected, Entero/Rhino (PCR) Not detected I & O for Last 24 hours: Intake & Output 02/28/20 02/29/20 03/01/20 03/02/20 23:59 23:59 23:59 23:59 Intake Total 684 / 684 1927 / 1927 1239 / 1239 Output Total 1050 / 1050 Balance 684 / 684 877 / 877 1239 / 1239 Weight 282 lb 10.122 oz 286 lb 6.087 oz 291 lb 0.163 oz 286 lb 6.087 oz - Constitutional no acute distress, obese - *Routine HEENT Exam ENT: Present: mucous membranes moist - *Routine Neck Exam Present: full ROM, trachea midline. Absent: tracheal deviation - *Routine Respiratory Exam Present: CTA bilaterally. Absent: accessory muscle use - *Routine Cardiovascular Exam Present: RRR, murmur - *Routine Abdominal Exam Present: soft, normoactive bowel sounds, obese. Absent: tenderness, firm - *Routine Extremities Exam Present: edema, full ROM. Absent: calf tenderness - *Routine Skin Exam Present: intact, warm. Absent: jaundice - *Routine Neurological Exam Present: alert, altered mental status - Routine Psychiatric Exam Present: unable to assess Assessment and Plan (1) Lower GI bleeding Current visit: No Status: Acute Category: Medical Code(s): K92.2 - Gastrointestinal hemorrhage, unspecified (2) Schizoaffective disorder Current visit: No Status: Chronic Qualifiers: Schizoaffective disorder type: depressive Qualified Code(s): F25.1 - Schizoaffective disorder, depressive type Category: Medical Code(s): F25.9 - Schizoaffective disorder, unspecified (3) Obesity Current visit: Yes Status: Acute Qualifiers: Obesity type: due to excess calories Obesity classification: adult class 3 (BMI >= 40) Serious obesity comorbidity presence: with serious comorbidity Body mass index: BMI 40.0-44.9 Qualified Code(s): E66.01 - Morbid (severe) obesity due to excess calories; Z68.41 - Body mass index (BMI) 40.0-44.9, adult Category: Medical Code(s): E66.9 - Obesity, unspecified (4) Diverticulosis of colon with hemorrhage Current visit: Yes Status: Acute Category: Medical Code(s): K57.31 - Diverticulosis of large intestine without perforation or abscess with bleeding (5) HTN (hypertension) Current visit: Yes Status: Acute Qualifiers: Hypertension type: essential hypertension Qualified Code(s): I10 - Essential (primary) hypertension Category: Medical Code(s): I10 - Essential (primary) hypertension (6) LVH (left ventricula
--- NOTE | 2020-03-02 10:20 | HMH.SCOPE ---
- Procedure: Date: 03/02/20 Procedure Performed:: Esophagogastroduodenoscopy with biopsy Indications:: Patient is a 69-year-old female who is a prison resident with cognitive impairment and documented history of schizophrenia. She is a poor historian. She was admitted several days ago with signs and symptoms consistent with lower GI bleed . She had passed some dark foul-smelling bowel movement. Surgical consultation was ordered. Plan was made to proceed with upper endoscopy Performing Provider:: Bill Martinez MD Referring Provider:: Sandeep Rizo MD Sedation:: Propofol Procedure:: Patient was taken to endoscopy procedure room. She was positioned in a lateral decubitus position. Adequate intravenous sedation was achieved with anesthesia titration of propofol. Olympus endoscope was inserted via the oropharynx advanced to the esophagus. Esophagus appeared unremarkable. There were some distal findings of minor reflux esophagitis. Stomach was cannulated and insufflated. Retroflexion was performed which revealed a very tiny hiatal hernia. There is some mild diffuse nonerosive gastritis. Gastric biopsy was obtained. Pylorus was traversed. Duodenal bulb and duodenal sweep appeared unremarkable. Endoscope was withdrawn. Findings:: Small hiatal hernia Mild nonerosive gastritis Recommendations:: There is no appreciable findings on upper endoscopy which would account for her reported bleeding prior to admission. Her hemoglobin has been stable for 48 hours. Colonoscopy would likely be warranted which may be able to be performed in early outpatient setting if she continues to have stability of hemoglobin/hematocrit and no clinical bleeding. Complications:: None Estimated blood obtained (mL): 1
--- NOTE | 2020-03-02 14:06 | PC.NURSE ---
Pt did have EGD this am and tolerated well. Dr. Martinez wrote he may do a colonoscopy- see his progress note. Pt is alert and oriented to person place and situation, although not time. RR even and unlabored and pt is up to chiar at this time. Lungs cta. No bloody stools noted. Pt is incont of b&b and non ambulatory.Will cont to mx this shift. VSS at this time. Did ask Dr. Martinez if pt was able to eat, no orders given at that time. PT remains NPO at this time. CB in reach.
[2020-03-02 15:11] LABS: Adenovirus,PCR Not Detected (NotDetected); Bordetella Pertussis Not Detected (NotDetected); Chlamydophila Pneumoniae, PCR Not Detected (NotDetected); Coronavirus 19, PCR Not Detected (NotDetected); Coronavirus 229E Not Detected (NotDetected); Coronavirus NL63 Not Detected (NotDetected); Coronavirus OC43 Not Detected (NotDetected); Coronovirus HKU1,PCR Not Detected (NotDetected); Human Metapneumovirus Not Detected (NotDetected); Influenza A, PCR Not Detected (NotDetected); Influenza AH1, 2009 Not Detected (NotDetected); Influenza AH1, PCR Not Detected (NotDetected); Influenza AH3,PCR Not Detected (NotDetected); Influenza B, PCR Not Detected (NotDetected); Mycoplasma Pneumoniae, PCR Not Detected (NotDected); Parainfluenza 1, PCR Not Detected (NotDetected); Parainfluenza 2, PCR Not Detected (NotDetected); Parainfluenza 3, PCR Not Detected (NotDetected); Parainfluenza 4, PCR Not Detected (NotDetected); Respiratory Syncytial Virus Not Detected (NotDetected); Rhinovirus/Enterovirus Not Detected (NotDetected)
--- NOTE | 2020-03-02 15:14 | PC.NURSE ---
Called and spoke with Sb at Dr. Bennett office at [facility] [address] and questioned diet order[address] Dr Rizo didn't order a diet at this time either. Pt remains NPO at this time for further possible tests.
[2020-03-03 04:00] VITALS: BP 96/53; PULSE 80; RESP 18; TEMP 36.9; O2SAT 95
[2020-03-03 04:45] VITALS: BMI 43.6
--- NOTE | 2020-03-03 05:52 | PC.NURSE ---
A&OX3 T/O SHIFT. PT TOLERATING RA T/O SHIFT. PT DOES NOT TALK MUCH, REMAINS QUIET UNLESS ASKED QUESTIONS. PT HAS NOT C/O PAIN, SOA, NA/VO THIS SHIFT. PT HAS NOT HAD BM THIS SHIFT. PT RESTING IN BED WITH EYES CLOSED MAJORITY OF SHIFT. NO C/O THUS FAR, VSS WILL CONTINUE TO MONITOR.
[2020-03-03 08:00] VITALS: BP 123/71; PULSE 88; RESP 18; TEMP 36.7; O2SAT 96
--- NOTE | 2020-03-03 09:01 | HMH.DCSUM ---
General - General Admission date:: 02/28/20 Discharge date: 03/03/20 HPI HPI: this pt was sent from [facility] with lower gi bleed - pt with crampy abd pain - pt was seen in the ed The patient is brought in by ambulance from [facility] for possible GI bleed. Reportedly had a large dark bowel movement today. The patient denies any abdominal pain or vomiting. She says she was told that she passed a dark stool, but she did not see it herself. The patient is a poor historian. Her [facility] transfer record indicates a history of dementia, schizophrenia, depression, anxiety, mild intellectual disabilities. It does not appear that she is on any anticoagulants pt was admitted for eval and treatment Hospital Course Hospital Course: 69-year-old female patient resting quietly in bed, awakens easily to verbal stimuli. She reports she is feeling better she denies any abdominal pain, nausea or vomiting. Discussed discharge back to [facility] and she is agreeable to this 69-year-old female patient admitted from [facility] brought in by ambulance with complaints of crampy abdominal pain. Staff at [facility] reports she had a large dark bowel movement, patient denies any abdominal pain or vomiting. She does have a history of dementia, schizophrenia, depression, anxiety, and mild intellectual disabilities. H/H was stable upon admittance and today is 11.7/33.7, she was stool occult blood positive. There is been no visible bloody stool or emesis during admittance. She was also COVID-19 negative. She is tolerating a diabetic diet denies any nausea or vomiting and she has 2 normal bowel movements during her stay. She will follow-up with GI for outpatient colonoscopy 03/02/20 EGD: Procedure:: Patient was taken to endoscopy procedure room. She was positioned in a lateral decubitus position. Adequate intravenous sedation was achieved with anesthesia titration of propofol. Olympus endoscope was inserted via the oropharynx advanced to the esophagus. Esophagus appeared unremarkable. There were some distal findings of minor reflux esophagitis. Stomach was cannulated and insufflated. Retroflexion was performed which revealed a very tiny hiatal hernia. There is some mild diffuse nonerosive gastritis. Gastric biopsy was obtained. Pylorus was traversed. Duodenal bulb and duodenal sweep appeared unremarkable. Endoscope was withdrawn. Findings:: Small hiatal hernia Mild nonerosive gastritis Recommendations:: There is no appreciable findings on upper endoscopy which would account for her reported bleeding prior to admission. Her hemoglobin has been stable for 48 hours. Colonoscopy would likely be warranted which may be able to be performed in early outpatient setting if she continues to have stability of hemoglobin/hematocrit and no clinical bleeding. It appears as though the patient had been scheduled for screening colonoscopy with Dr. Ilan Jewell in September 2017 but she apparently did not follow through with this. Her CT scan reveals prominent diverticulosis. Potential etiology for her symptoms is diverticular bleed which has now resolved. As stated, if she remains stable with no clinical bleeding with stable hemoglobin/hematocrit may build to be discharged for planned outpatient colonoscopy. (Per Dr. Leavitt). 02/28/20 Abd/Pelvic CT: FINDINGS: Lower thorax: Mild dependent atelectasis on. Mild pleural parenchymal scarring posterior left lung left base. Mild cardiomegaly ABDOMEN: Large patient Liver: Hepatic steatosis prominent diffuse fatty changes of liver. No masses or biliary dilatation. Scattered granulomatous calcifications liver Gallbladder: Upper normal in size but likely sludge at neck of gallbladder a difficult to exclude a tiny stone on axial image 48/versus merely volume averaging. Pancreas: No masses or peripancreatic fluid collections. Spleen: unremarkable Adrenals: unremarkable the Kidneys/ureters: unremarkab
--- NOTE | 2020-03-03 09:20 | SW/DCPLANNER ---
I have informed Lorena with [facility] that this patient will be discharging back today [facility] level of care. Discharge summary and NEGATIVE COVID results have been faxed.
== END 2020-03-03 11:11 ==
LOC: ER 17:39 → 2ND 19:45
PROVIDERS: Family Medicine; Surgery; Admitting Provider Emergency Medicine; Emergency Provider Emergency Medicine; PCP Emergency Medicine; Visit Provider Emergency Medicine
PROC: 0DJ08ZZ Inspection of Upper Intestinal Tract, Via Natural or Artificial Opening Endoscopic (ICD-10-PCS; CPT 43235; principal; 2020-03-02 10:30)
DX: K92.2 Gastrointestinal hemorrhage, unspecified (principal); F25.1 Schizoaffective disorder, depressive type; Z79.899 Other long term (current) drug therapy; E66.01 Morbid (severe) obesity due to excess calories; Z68.41 Body mass index [BMI] 40.0-44.9, adult; I50.9 Heart failure, unspecified; I11.0 Hypertensive heart disease with heart failure; Z87.891 Personal history of nicotine dependence; K29.60 Other gastritis without bleeding; K44.9 Diaphragmatic hernia without obstruction or gangrene
CPT/HCPCS: 43239; 36415; 74177; 80053; 82272; 85025; 85610; 85730; 86850; 87581; 87633; 87798; 88305; 96365; 96375; 99284; G0328; G0378; Q9967

== ENCOUNTER → 2020-04-05 07:24 | Outpatient (CLI) | payer MEDICARE, MEDICAID, SELFPAY ==
--- NOTE | 2020-04-05 | CA_ITS ---
APPROVED REPORT Exam: Pharmacologic Technologist: Jenniffer Joyce Ht: 5 ft 6 in Wt: 270 lbs BSA: 2.27 m2 HR: 74 bpm BP: 123/75 mmHg Indications: Chest pain, dyspnea, pulmonary hypertension Medical History Medications: Omeprazole,,,,, Furosemide (LASIX),,,,, Trazadone,,,,, Ferrous sulfate,,,,, Atorvastatin,,,,, Lansoprazole,,,,, Olanzapine,,,,, BisOPROLOL,,,,, FluTICASONE,,,,, Sertraline,,,,, Lactulose,,,,, ONdansetron,,,,, Stress Test Details Test: LEXISCAN HR Resting HR: 80 bpm Max Heart Rate (APMHR): 152 bpm Max HR Achieved: 103 bpm Target HR (85% APMHR): 129 bpm % of APMHR: 67 Recovery HR: 88 bpm BP Resting BP: 123.0/75.0 mmHg Max BP: 141.0/60.0 mmHg Recovery BP: 141.0/60.0 mmHg ECG Clinical Exercise duration: 04:09 min Highest Stage Achieved: Stress ECG Conclusion Resting ECG: Sinus rhythm Lexiscan portions completed. Patient complained of shortness of breath during peak infusion. Symptoms: Shortness of breath during peak infusion, resolved in recovery. No chest pain. Arrhythmias/Ectopy: Occasional PAC Occasional PVC ST-T Changes: Less than 1.5 mm Depression. Conclusion: Images to follow. Test Summary REST . . . . . . . Resting REST 02:34 . . 80 . 123/ 75 . . Stage 1 . . . . . . . Myoview Injected Stage 1 01:00 . . 99 . . . . Stage 2 01:00 . . 101 . . . . Stage 3 01:00 . . 96 . . . . Stage 4 01:00 . . 93 . . . . Stage 4 01:09 . . 92 . . . Stop exercise at 04:09 RECOVERY 01:00 . . 91 . 129/ 67 . . RECOVERY 02:00 . . 89 . 140/ 62 . . RECOVERY 03:00 . . 91 . 140/ 62 . . RECOVERY 04:00 . . 88 . 141/ 60 . . RECOVERY 04:06 . . 88 . 141/ 60 . . Electronically signed by : Salvador Daniel, 04/05/2020 21:16:30
--- NOTE | 2020-04-05 07:25 | NM_ITS ---
APPROVED REPORT Exam: Nuclear Stress Test Indication: Chest pain, SOB, HTN, High cholesterol Patient Location: Outpatient Stress Tech: Jenniffer Joyce NM Tech:Liz Solo, ARRT, RT (R)(N) Ht: 5 ft 6 in Wt: 270 lbs Bra Size: D HR: 74 bpm BP: 123/75 mmHg BSA: 2.27 m2 BMI: 43.5 History: Chest pain, SOB, HTN, High cholesterol Procedure: Patient received a 0.4 mg of intravenous Lexiscan, resting heart rate 74 bpm, resting blood pressure 123/75 mmHg, with Lexiscan maximum heart rate achived was 91 bpm which is Less than 85 % of the maximum predicted heart rate and blood pressure was 129/67 mmHg. With Lexiscan, patient denied any complaint of chest pain. Electrocardiogram Resting electrocardiogram showed sinus rhythm, with Lexiscan there is less than 1.[address] segment depression noted from the baseline EKG. The EKG portion of the Lexiscan Myoview is nondiagnostic. Cardiac Stress and Resting SPECT Images: Cardiac Stress and Resting SPECT images were obtained using technetium 99m Myoview 31.6 mCi stress and 9.92 mCi at rest. Gated SPECT for the analysis of segmental wall motion and calculation of the ejection fraction also done. Cardiac stress and resting SPECT images show uniform myocardial activity without segmental perfusion abnormality, computer derived ejection fraction is over 65% with no regional wall motion abnormality, right ventricle is normal size and contractility. Conclusion: 1. The EKG portion of the Lexiscan Myoview is nondiagnostic. 2. No scintigraphic evidence of reversible ischemia seen, computer derived ejection fraction is over 65% with no regional wall motion abnormality, right ventricle is normal size and contractility. 3. Normal Lexiscan Myoview study. Electronically signed by : Salvador Daniel, 04/05/2020 21:18:15
--- NOTE | 2020-04-05 07:25 | XR_ITS ---
PROCEDURE: XR CHEST 2V CLINICAL HISTORY: sob COMPARISON: CR CXR CHEST(2 VIEWS-NOT PORTABLE) from 01/31/2015 CR CXR2 CHEST-AP VIEW ONLY from 09/11/2015 CR CXR2V XR chest 2V from 06/17/2018 FINDINGS: Study is limited technically as exam had to be performed with patient in wheelchair. Prominent overlying soft tissue attenuation is present from the breast. There is borderline cardiomegaly without failure. Lungs are clear of acute infiltrate. Degenerative changes in the shoulders IMPRESSION: No acute findings. Dictated by: Jim Borrero MD 04/05/2020 13:26 Jim Borrero MD in [place] 04/05/2020 13:26
--- NOTE | 2020-04-05 08:59 | CA_ITS ---
APPROVED REPORT EXAM: Comprehensive 2D, Doppler, and color-flow Echocardiogram Graphics Coordinator: Ally Baker RDCS Ht: 5 ft 6 in Wt: 281lbs BSA: 2.31 BP: 129/67 mmHg Indications: LIMITED EXAM SECONDARY TO POOR WINDOWS AND BODY HABITUS CP,PHTNMEX SMOKER,SOA,MORBID OBESITY 2D Dimensions LVOT 1.93 cm (M/F) 1.5-2.5 M-Mode Dimensions RVDd 2.81 cm (0.9-2.6) LVDd 4.71 cm (3.5-5.7) LVDs 3.04 cm (3.5-5.7) IVSd 0.87 cm (0.6-1.1) PWd 0.99 cm (0.6-1.1) EF (Teich) 64.80% FS 35.50% EDV (Teich) 102.90 mL ESV (Teich) 36.20 mL Left Ventricle Technically difficult study because of the patient factors and poor acoustic windows. Left atrium is mildly enlarged, left ventricle is normal size, mild concentric left ventricular hypertrophy, visually estimated ejection fraction 55% with no regional wall motion abnormality. Diastolic parameters are inconclusive. Right Ventricle Right atrium and right ventricle are mildly enlarged with normal contractility. Aortic Valve Aortic valve is minimally thickened and fibrosed, there is no aortic stenosis or aortic insufficiency. Mitral Valve Mitral valve is grossly normal. There is mild mitral regurgitation. Tricuspid Valve Tricuspid valve grossly normal, there is mild tricuspid regurgitation. Pulmonic Valve Pulmonic valve is poorly visualized. Great Vessels Aortic root is normal size. Pericardium No significant pericardial effusion noted. Conclusion 1. Technically difficult study because of the patient factors and poor acoustic windows. 2. Mild biatrial enlargement, normal left ventricular size, mild concentric left ventricular hypertrophy, visually estimated ejection fraction 55% with no regional wall motion abnormality, diastolic parameters are inconclusive. 3. Mildly enlarged right ventricle with normal contractility. 4. Mild mitral and tricuspid regurgitation. 5. No significant pericardial effusion noted. Electronically signed by : Salvador Daniel, 04/05/2020 19:04:38
--- NOTE | 2020-04-05 11:16 | FL_ITS ---
PROCEDURE: FL BARIUM SWALLOW MODIFIED CLINICAL INDICATION: DETERMINE SAFEST DIET COMPARISON: No exams were available for comparison TECHNIQUE: Patient administered varying consistencies of barium contrast, while viewed in lateral position under real-time fluoroscopy with cine recording. FLUOROSCOPY TIME:2 minutes and 2 seconds The study was performed in conjunction with speech pathologist. Please see that report & recommendations. The exam is fairly limited as the larynx is obscured by the patient's shoulders with positioning over the mouth rather than the glottic region. It is difficult to evaluate for penetration and aspiration FINDINGS: Patient was given varying consistencies of barium. No obvious gross tracheal aspiration apparent.. IMPRESSION: Limited exam due to patient positioning and attenuation from the shoulders. No gross aspiration identified Please see speech pathologist report and recommendations. Dictated by: Jim Borrero MD 04/07/2020 15:27 Jim Borrero MD in [place] 04/07/2020 15:27
--- NOTE | 2020-04-05 12:40 | HMH.SLMBS2 ---
Speech & Language Evaluation Speech/Language Mod Barium Swallow Start: 04/05/20 12:08 Freq: once Status: Complete Protocol: Document 04/05/20 12:08 CRISTELA (Rec: 04/05/20 12:40 CRISTELA [id number]) General Information General Current Food Consistancy Mechanical Soft,Thin Liquids Dentition Edentulous Oxygen Status Room Air Facial Symmetry Symmetrical Patient Orientation Person,Place Ability to Follow Directions [facility] Recommendations Diet Dietary Recommendations Dysphagia Mechanical Soft, Ground Meats,Honey Liquids Treatment/Strategies Strategy/Precaution Recommend Sitting Upright (90 deg) Mod Barium Swallow Impressions Summary and Impressions Oral Phase Impression No Impairment (WFL) Oral Phase Summary Ms. Roger was given the following consistencies: thins via straw and open cup, nectar, honey, pudding, pureed , mechanical soft, and pill with honey wash. No oral phase impairments noted. Pharyngeal Phase Impression Moderate Impairment Pharyngeal Phase Summary Ms. Roger exhibited flash penetration and residue in valleculae and pyriform sinus with thins and nectar. Speech/Language MBS Assessment/Goals/Plan Assessment Date of Evaluation: 04/05/20 Evaluation Type Initial Certification Assessment/Problems Dysphagia Does Patient Qualify for Service No Qualify/Failure Comment ST at SNF will determine need for therapy Plan Pt/Guardian verbally ack understanding Yes of dx/prognosis/goals G -code Required No Mod Barium Swallow Setup Exam Setup Radiologist Jim Borrero Level of Consciousness Awake,Alert,Appropriate Position (degrees) 90 Mod Barium Swallow-Lat View Textures Lateral View Food Presentation Thin Liquid via Cup,Thin Liquid via Straw,[place] Liquid via Cup,Honey Liquid via Cup, Pureed Food- Thick,Ground Food - Regular,Barium Tablet, Pudding Oral Phase Labial Closure No Impairment (WFL) Bolus Formation Pooling L/R No Impairment (WFL) Bolus Formation under Tongue No Impairment (WFL) Bolus Formation Scattered Loss No Impairment (WFL) Mastication Rotary Chew No Impairment (WFL) Mastication Munching No Impairment (WFL) Mastication Lateralization No Impairment (WFL) A/P Lingual Propulsio
== END ==
PROVIDERS: PCP Emergency Medicine; Visit Provider Nurse Practitioner Family
DX: I27.20 Pulmonary hypertension, unspecified (principal); R06.02 Shortness of breath; R07.9 Chest pain, unspecified; R60.0 Localized edema
CPT/HCPCS: 70371; 71046; 78452; 92611; 93017; 93306; 93308; A9502; J2785

== ENCOUNTER → 2020-05-09 19:24 | Outpatient (CLI) | payer MEDICARE, MEDICAID, SELFPAY ==
[2020-05-09 20:22] LABS: Coronavirus 19 IgG Antibody Negative (Negative); Coronavirus 19 IgM Antibody Negative (Negative)
== END ==
PROVIDERS: PCP Emergency Medicine; Visit Provider Emergency Medicine
DX: Z03.818 Encounter for observation for suspected exposure to other biological agents ruled out (principal)
CPT/HCPCS: 86328

== ENCOUNTER 2020-05-11 07:50 | Day surgery (SDC) | payer MEDICARE, MEDICAID, SELFPAY ==
[2020-05-11 08:09] VITALS: BMI 45.6
[2020-05-11 08:11] VITALS: BP 162/82; PULSE 100; RESP 18; TEMP 36.3; O2SAT 99
[2020-05-11 08:18] LABS: POC Glucose,Bedside 171 (70-110)
[2020-05-11 09:54] VITALS: O2SAT 99
--- NOTE | 2020-05-11 10:08 | HMH.ANESCL ---
[facility] Anesthesia Checklist - Patient Identification Patient Identification: Arm Band - Structural Data Admitted From: Long-term Nursing Facility Planned Operative Procedure/s: colonoscopy Consent for Planned Operative Procedure(s) Verified: Yes Verified Documents: Surgical Consent, History and Physical - NPO Status Verified Time NPO: 00:00 - Additional verifications Anesthesia Reactions: No - Airway Assessment C-Spine Mobility Assessed: Yes (mp3) TMJ Mobility Assessed: Yes Dentition: Edentulous - Neurological Assessment Level of Consciousness: Awake, Alert - Anesthesia Plan Anesthesia Risk discussed: Yes Anesthesia Plan: Verified ASA Class: III Anesthesia Type: MAC [facility] History I have reviewed the patient's past medical history: Yes Medical History: Reports:: Anxiety, Cancer (R breast), Congestive Heart Failure, Depression, Diabetes Mellitus Type 2, Gastrointestinal Bleed, Hyperlipidemia, Hypertension, Renal Insufficiency, Seizures Denies:: Diabetes Mellitus Type 1, MRSA *Have you ever received a pneumonia vaccine?: Yes *Have you received a flu vaccine this season?: Yes Other Medical History: Reports: Anemia Anesthesia experience/problems:: nac Laterality Cases: Right: Mastectomy Other Surgeries: Yes: Cancer Surgery, Colonoscopy, EGD, Hysterectomy-Partial, Tubal Ligation, Other Amputation: No Fractures: Yes (Left lower leg and foot) - *Social History Last grade of school completed: 9th or 10th Smoking Status: Former smoker Tobacco Type: cigarettes # Packs/Day (cigarettes): 0 #Yrs smoked (if former smoker): 0 Alcohol Intake: never Alcohol Intake Frequency:: other Substance Use Type: denies use *Occupational Status:: disabled Housing: other Household Members: other *Travel in the last 8 weeks: None - Psychiatric History Pschychiatric History:: Reports:: Anxiety, Depression, Schizophrenia Family Hx:: Unable to obtain
[2020-05-11 11:00] VITALS: BP 145/79; PULSE 93; RESP 12; TEMP 36.6; O2SAT 94
--- NOTE | 2020-05-11 11:04 | HMH.SCOPE ---
- Procedure: Date: 05/11/20 Patient Date of :: 1950 Procedure Performed:: Total colonoscopy with polypectomy via snare Indications:: Patient presents for colonoscopy. She is a 69-year-old -[place]og[place] female with a history of cognitive impairment and apparent schizophrenia who is a resident of a personal alf. I had seen her as an inpatient consult about 2 years ago at which time she had had some vomiting and there was a concern for possible gallbladder etiology. However, ultimately gallbladder work-up including ultrasound and outpatient HIDA scan were unremarkable. During that time she did have an upper GI series performed which was a suboptimal study but showed no gastric outlet obstruction. As an outpatient she followed up and underwent gastric emptying scan which was unremarkable. I had made arrangements for her to see gastroenterology and there were arrangements made for outpatient colonoscopy but this was never performed. Most recently she had been admitted with GI bleeding with passage of appreciable blood per rectum. I performed upper endoscopy as an inpatient and this revealed no upper GI etiology. She convalesced well and was stable and plan was made for outpatient colonoscopy. Performing Provider:: Bill Martinez MD Referring Provider:: Sandeep Rizo MD Sedation:: Propofol Procedure:: Patient was taken to endoscopy procedure room. She was positioned in lateral decubitus position. Adequate intravenous sedation was achieved with anesthesia titration of propofol. Variable stiffness Olympus colonoscope was inserted via the anus. With some minor difficulty due to floppiness of the sigmoid colon and due to profound diverticulosis of the sigmoid colon it was advanced to the cecum. Colonic preparation was fair with some particulate liquid stool throughout the colon. Within the cecum there appeared to be what was initially felt to be a large but unusual appearing polyp type lesion which was pink and nodular in character. Preparations were made for polypectomy with hot snare. This was inserted and ultimately the lesion was encircled. However there appeared to be no attachments to the colon. The lesion was then grasped with a Ortiz net. It could not be pulled through the colonoscope as it was somewhat firm. Therefore the colonoscope with the lesion en tow within the Ortiz net was withdrawn from the entire colon. Inspection then revealed this to be consistent with a large piece of bubblegum. Colonoscope was then reinserted and once again advanced to the cecum with some minor difficulty due to floppiness of the colon and significant diverticulosis. Ileocecal valve and appendiceal orifice were clearly identified. Colonoscope was withdrawn through the colon with careful surveillance. She had significant pandiverticulosis with multiple large mouth diverticuli seemingly concentrated in the proximal transverse colon and in the distal sigmoid. In the sigmoid colon there were additional colonic foreign bodies encountered which were consistent with a large pieces of bubblegum. There was some diminutive possibly hyperplastic rectosigmoid polyps which were removed with cold cutting snare. Rectal polyp appeared hyperplastic and was removed but could not be retrieved. Retroflexion revealed minimal nonpathologic internal hemorrhoids. Colonoscope was withdrawn. Findings:: Several colonic foreign bodies consistent with large pieces of bubblegum Significant pandiverticulosis most concentrated in the sigmoid and proximal transverse colon Diminutive rectosigmoid polyps Fair preparation Recommendations:: Source of her previous lower GI bleeding likely diverticular. Complications:: None immediately apparent Estimated blood obtained (mL): 1
[2020-05-11 11:10] VITALS: BP 149/70; PULSE 85; RESP 16; O2SAT 99
[2020-05-11 11:20] VITALS: BP 138/69; PULSE 80; RESP 16; O2SAT 97
[2020-05-11 11:30] VITALS: BP 126/79; PULSE 81; RESP 16; TEMP 36.6; O2SAT 97
== END 2020-05-11 11:32 | disposition home or self-care (01) ==
LOC: OUTP 07:51
PROVIDERS: PCP Emergency Medicine; Visit Provider Surgery
PROC: 0DJD8ZZ Inspection of Lower Intestinal Tract, Via Natural or Artificial Opening Endoscopic (ICD-10-PCS; CPT 45378; principal; 2020-05-11 09:30)
DX: Z12.11 Encounter for screening for malignant neoplasm of colon (principal); K57.30 Diverticulosis of large intestine without perforation or abscess without bleeding; K63.5 Polyp of colon; K62.1 Rectal polyp; K63.89 Other specified diseases of intestine; T18.4XXA Foreign body in colon, initial encounter; F25.9 Schizoaffective disorder, unspecified; G31.84 Mild cognitive impairment of uncertain or unknown etiology; I11.0 Hypertensive heart disease with heart failure; I50.9 Heart failure, unspecified; E11.9 Type 2 diabetes mellitus without complications; E78.5 Hyperlipidemia, unspecified; F41.9 Anxiety disorder, unspecified; N28.9 Disorder of kidney and ureter, unspecified; R56.9 Unspecified convulsions
CPT/HCPCS: 45385; 82962; 88305

== ENCOUNTER → 2020-05-12 08:56 | Outpatient (CLI) | payer MEDICARE, MEDICAID, SELFPAY ==
--- NOTE | 2020-05-12 08:59 | US_ITS ---
PROCEDURE: MM DIG SC MAMM UNILAT RT CAD Digital Breast Tomosynthesis Included CLINICAL INDICATION: SCREENING COMPARISON: MG DMSUL DIG MAMM SCREENING UNILAT-LT from 07/24/2012 MG DMSUL DIG MAMM-SCREENING UNI-LT from 11/26/2014 MG DMSUL DIG MAMM-SCREENING UNI-LT from 05/05/2016 MG MM DIG SC MAMM UNILAT LT CAD from 05/05/2019 US US BREAST LT COMPLETE from 05/12/2020 TECHNIQUE: Standard CC and MLO images and 3D Tomosynthesis was obtained. R2 CAD reviewed. FINDINGS: This exam is very limited as the patient was unable to be properly position despite using 3 people for positioning. There are 2 benign-appearing nodular opacities in the lateral aspect of the left breast. These are each 4 mm. These are not readily apparent on the previous exam. Ultrasound performed of the left breast did not demonstrate any nodules. The MLO images are very limited technically due to inability to properly position the patient. Left breast ultrasound: No cystic or solid lesions are evident. IMPRESSION: There are 2 new benign-appearing nodules in the lateral aspect of the left breast probably benign. Ultrasound however was noncontributory. Recommend short-term mammographic and sonographic follow-up BI-RAD Category: 3 Probably Benign Finding Short Term Follow-up FOLLOW-UP: 3M 3 Month Follow-up (A letter has been sent to the patient regarding results of the study.) Dictated by: Jim Borrero MD 05/24/2020 08:41 Jim Borrero MD in [place] 05/24/2020 08:41
== END ==
PROVIDERS: PCP Emergency Medicine; Visit Provider Emergency Medicine
DX: Z12.31 Encounter for screening mammogram for malignant neoplasm of breast (principal); R92.8 Other abnormal and inconclusive findings on diagnostic imaging of breast
CPT/HCPCS: 76641; 77063; 77067

== ENCOUNTER → 2020-07-28 23:46 | Outpatient (CLI) | payer MEDICARE, MEDICAID, SELFPAY | PROVIDERS: PCP Emergency Medicine; Visit Provider Emergency Medicine | DX: Z03.818 Encounter for observation for suspected exposure to other biological agents ruled out (principal) | CPT/HCPCS: U0003 ==

== ENCOUNTER → 2020-07-29 23:32 | Outpatient (CLI) | payer MEDICARE, MEDICAID, SELFPAY | PROVIDERS: Visit Provider Emergency Medicine | DX: Z03.818 Encounter for observation for suspected exposure to other biological agents ruled out (principal) | CPT/HCPCS: U0003 ==

== ENCOUNTER 2021-02-21 03:09 | Observation (INO) | payer MEDICARE, MEDICAID, SELFPAY ==
[2021-02-21] VITALS (14 sets, daily range): BP systolic 100–131; BP diastolic 58–78; PULSE 92–130; RESP 14–20; TEMP 36.4–37.2; O2SAT 95–100; BMI 35.2
--- NOTE | 2021-02-21 03:07 | ECG_ITS ---
APPROVED REPORT Exam: Resting ECG HR:132 bpm ECG Measurements Heart Rate 132 AXES ND 124 P 62 QRSd 68 QRS 80 QT 308 T -1 QTc 456 Conclusion Sinus tachycardia Biatrial enlargement Nonspecific ST abnormality Abnormal QRS-T angle, consider primary T wave abnormality Abnormal ECG Electronically signed by : Sebastian Small, 02/23/2021 21:42:28
--- NOTE | 2021-02-21 03:20 | CT_ITS ---
PROCEDURE INFORMATION: Exam: CT Abdomen And Pelvis With Contrast Exam date and time: 02/21/2021 3:20 AM Age: 70 years old Clinical indication: Other: Rectal bleeding TECHNIQUE: Imaging protocol: Computed tomography of the abdomen and pelvis with contrast. Radiation optimization: All CT scans at this facility use at least one of these dose optimization techniques: automated exposure control; mA and/or kV adjustment per patient size (includes targeted exams where dose is matched to clinical indication); or iterative reconstruction. Contrast material: ISOVUE; Contrast volume: 75 ml; Contrast route: IV; COMPARISON: CT ABDOMEN PELVIS W CON 02/28/2020 5:56 PM FINDINGS: Lungs: There is some left basilar atelectasis. Liver: There is fatty infiltration of the liver. Gallbladder and bile ducts: No calcified stones. No ductal dilation. Pancreas: Normal. No ductal dilation. Spleen: Normal. No splenomegaly. Adrenal glands: Normal. No mass. Kidneys and ureters: Normal. No hydronephrosis. Stomach and bowel: There is fluid throughout the nondilated colon extending to the rectum a nonspecific finding associated with gastroenteritis and colitis. There is extensive diverticulosis of the colon. Appendix: No evidence of appendicitis. Intraperitoneal space: No free air. No significant fluid collection. Vasculature: No abdominal aortic aneurysm. Lymph nodes: No enlarged lymph nodes. Urinary bladder: There is a Villalobos catheter with its distal tip in the bladder. Reproductive: The uterus is surgically absent. Bones/joints: There are some degenerative changes of the lower lumbar spine and the hips. Soft tissues: There is diastasis of the rectus abdominus. IMPRESSION: 1. There is fluid throughout the colon which is not a specific finding and can be seen with gastroenteritis and/or colitis. 2. Extensive colonic diverticulosis.
[2021-02-21 03:27] LABS: Basophils # 0.1 K/mm3 (0-0.2); Basophils % 0.6 % (0.1-2.0); Eosinophils # 0.3 K/mm3 (0.0-0.4); Eosinophils % 2.4 % (0.1-12.0); Hematocrit 38.2 % (37.0-47.0); Hemoglobin 12.8 g/dL (12.2-16.2); Lymphocytes # 5.1 K/mm3 (0.7-4.5); Lymphocytes % 35.5 % (10-50); Mean Corpuscular HGB Conc 33.4 g/dL (31.8-35.4); Mean Corpuscular Volume 86.6 fl (81-99); Mean Platelet Volume 8.8 fl (7.4-10.4); Monocytes # 0.5 K/mm3 (0.1-1.0); Monocytes % 3.3 % (1.7-9.3); Neutrophils # 8.4 K/mm3 (1.8-7.8); Neutrophils % 58.2 % (37.0-80.0); Platelet Count 304 K/mm3 (142-424); Red Blood Count 4.41 M/mm3 (4.20-5.40); Red Cell Distribution Width 13.3 % (11.5-17.5); White Blood Count 14.5 K/mm3 (4.8-10.8)
[2021-02-21 03:28] LABS: Occult Blood,Stool Positive (Negative)
[2021-02-21 03:32] LABS: Alanine Aminotransferase 21 U/L (12-78); Albumin Level 3.7 g/dl (3.5-5.0); Alkaline Phosphatase 79 U/L (38-126); Anion Gap 17.2 mEq/L (5-15); Aspartate Amino Transferase 30 U/L (14-36); Bilirubin,Total 0.4 mg/dl (0.2-1.3); Blood Urea Nitrogen 18 mg/dl (7-17); Calcium 9.2 mg/dl (8.4-10.2); Carbon Dioxide 25 mmol/L (22.0-30.0); Chloride 105 mmol/L (98-107); Creatinine Clearance Estimated 86 mL/min (50-200); Estimated Glomerular Filt Rate 71 ml/min (>60); GFR (African American) 86 ML/MIN (>60); Globulin 3.6 g/dL (1.3-3.2); Glucose 180 mg/dl (74-100); Potassium 4.2 mmoL/L (3.5-5.1); Sodium 143 mmol/L (136-145); Total Protein,Serum 7.3 g/dl (6.3-8.2)
[2021-02-21 03:38] LABS: C-Reactive Protein 23.5 mg/L (0-4)
[2021-02-21 03:46] LABS: Microscopic, Urine URINE MICROSCOPIC (MICROSCOPIC)
[2021-02-21 03:47] LABS: Appearance,Urine CLOUDY (Clear); Blood, Urine 1+ (Negative); Color,Urine DK YELLOW (Yellow); Glucose,Urine (UA) Negative (Negative); Ketones,Urine 1+ (Negative); Leukocyte Esterase,Urine 2+ (Negative); Nitrate,Urine Negative (Negative); Protein,Urine TRACE (Negative); Specific Gravity, Urine >= 1.030 (1.005-1.030)
[2021-02-21 03:51] LABS: Procalcitonin 0.085 ng/mL (0.0-2.0)
[2021-02-21 03:57] LABS: Bilirubin,Urine Negative (Negative)
[2021-02-21 03:58] LABS: Bacteria,Urine 4+ /lpf; Squamous Epithelial Cell,Urine 20-50 #/hpf (0-5); WBC,Urine 50-100 #/hpf (0-3)
[2021-02-21 03:58] LABS: Erythrocyte Sedimentation Rate 53 mm/hr (0-30)
--- NOTE | 2021-02-21 05:04 | HMH.EDGIBL ---
ED Disposition Clinical Impression: Diverticulosis of colon with hemorrhage, Obesity (BMI 30-39.9), SIRS (systemic inflammatory response syndrome) Schizoaffective disorder Qualifiers: Schizoaffective disorder type: unspecified Qualified Code(s): F25.9 - Schizoaffective disorder, unspecified UTI (urinary tract infection) Qualifiers: Urinary tract infection type: site unspecified Hematuria presence: without hematuria Qualified Code(s): N39.0 - Urinary tract infection, site not specified Disposition: Admitted as Observation Condition on Discharge: Fair - Critical Care Critical Care Time: No Attestation: On 02/21/21, the high probability of a clinically significant, sudden or life threatening deterioration of the following system(s) required my full and direct attention, intervention and personal management. The time I documented below is in addition to time spent performing reported procedures but includes the following listed in this critical care notation. Medical Decision Making - Medical Records Medical records reviewed: Yes: I reviewed the patient's medical records. - Carlos Inquiry Pt receiving controlled substance: No Vital Signs: 02/21/21 03:07 02/21/21 03:30 02/21/21 04:00 Temperature 98.3 F Temperature Source Oral Pulse Rate 129 H 128 H Pulse Rate [Right] 130 H Respiratory Rate 18 Blood Pressure 117/77 120/74 Blood Pressure [Right Arm] 120/78 Blood Pressure Mean [Right Arm] 92 02 Sat by Pulse Oximetry 97 96 97 Oxygen Delivery Method Room Air Room Air 02/21/21 05:00 02/21/21 05:15 Temperature Temperature Source Pulse Rate 127 H 130 H Pulse Rate [Right] Respiratory Rate Blood Pressure 109/58 L Blood Pressure [Right Arm] Blood Pressure Mean [Right Arm] 02 Sat by Pulse Oximetry 99 98 Oxygen Delivery Method - Lab Data Lab results reviewed: Yes: I reviewed the patient's lab results. Lab Results 02/21/21 02:50: Stool Occult Blood Positive A 02/21/21 02:50: WBC 14.5 H, RBC 4.41, Hgb 12.8, Hct 38.2, MCV 86.6, MCH 29.0, MCHC 33.4, RDW 13.3, Plt Count 304, MPV 8.8, Neut % (Auto) 58.2, Lymph % (Auto) 35.5, Tama % (Auto) 3.3, Eos % (Auto) 2.4, Baso % (Auto) 0.6, Neut # (Auto) 8.4 H, Lymph # (Auto) 5.1 H, Tama # (Auto) 0.5, Eos # (Auto) 0.3, Baso # (Auto) 0.1, ESR 53 H 02/21/21 02:50: Sodium 143, Potassium 4.2, Chloride 105, Carbon Dioxide 25, Anion Gap 17.2 H, BUN 18 H, Creatinine 0.80, Estimated Creat Clear 86, Estimated GFR 71, Est GFR ( Amer) 86, Glucose 180 H, Calcium 9.2, Total Bilirubin 0.4, AST 30, ALT 21, Alkaline Phosphatase 79, C-Reactive Protein 23.5 H, Total Protein 7.3, Albumin 3.7, Globulin 3.6 H, Albumin/Globulin Ratio 1.0 L 02/21/21 02:50: Procalcitonin 0.085 02/21/21 03:41: Urine Color Dk yellow, Urine Appearance Cloudy, Urine pH 5.0, Ur Specific Hughes >= 1.030, Urine Protein Trace, Urine Glucose (UA) Negative, Urine Ketones 1+, Urine Blood 1+, Urine Nitrate Negative, Urine Bilirubin Negative, Urine Urobilinogen 1.0, Ur Leukocyte Esterase 2+ A, Urine RBC 5-10, Urine WBC 50-100, Ur Squamous Epith Cells 20-50, Urine Bacteria 4+ 02/21/21 05:00: SARS-CoV-2 (PCR) Not detected, Influenza A Untype (PCR) Not detected, Influenza Type B (PCR) Not detected Result diagrams: 02/21/21 02:50 02/21/21 02:50 Orders (Tests/Meds): ED MEDICATIONS Generic Name Dose Route Start Last Admin Trade Name Freq PRN Reason Stop Dose Admin Sodium Chloride 1,000 mls @ 999 mls/hr 02/21/21 03:30 02/21/21 03:30 Sod Chlor 0.9% 1000ml Bag IV 02/21/21 04:30 999 mls/hr .Q1H1M ANUPAMA Administration Ceftriaxone Sodium 1 gm/ 50 mls @ 100 mls/hr 02/21/21 06:00 02/21/21 05:54 Sodium Chloride IV 03/07/21 05:59 100 mls/hr Q24H ANUPAMA Administration Protocol Discontinued Medications Generic Name Dose Route Start Last Admin Trade Name Freq PRN Reason Stop Dose Admin Pantoprazole Sodium 80 mg/ 100 mls @ 100 mls/hr 02/21/21 03:22 02/21/21 03:43 Sodium C
[2021-02-21 05:11] LABS: Coronavirus 19, PCR Not Detected (NotDetected); Influenza A, PCR Not Detected (NotDetected); Influenza B, PCR Not Detected (NotDetected)
--- NOTE | 2021-02-21 08:13 | PC.NURSE ---
Notified Dr. Martinez warehouse operations associate surgeon about consult on this pt.
--- NOTE | 2021-02-21 08:32 | HMH.GSCON ---
*Admission Date: 02/21/21 *Reason for consult:: Lower GI bleed *History of present illness: Patient is a 70-year-old female who is a resident of extended care facility with history of reported cognitive impairment and schizophrenia. She had a prior admission in February 2020 with symptoms of lower GI bleed with passage of dark bloody stool. She underwent upper endoscopy during that admission which was unremarkable. She underwent outpatient colonoscopy on 05/11/2020. She was found to have extensive diverticulosis most notable in the distal transverse and left colon. No evidence of any bleeding. It was felt that she likely had experienced diverticular bleed in February 2020 during that admission. [facility] earlier this morning with similar symptoms of passage of blood per rectum. She was admitted and surgical consultation was obtained. Hemoglobin 12.8 with hematocrit of 38. Review of Systems - Review of Systems Review of systems:: unable to obtain - *Neurologic Denies headache(s), Denies seizure-like activity [facility] History I have reviewed the patient's past medical history: Yes Medical History: Reports:: Anxiety, Cancer, Congestive Heart Failure, Depression, Gastrointestinal Bleed, Hyperlipidemia, Hypertension, Renal Insufficiency, Seizures Denies:: Diabetes Mellitus Type 1, Diabetes Mellitus Type 2, MRSA *Have you ever received a pneumonia vaccine?: Yes *Have you received a flu vaccine this season?: Yes Other Medical History: Reports: Anemia, Arthritis, Other Laterality Cases: Right: Mastectomy Other Surgeries: Yes: No Previous Surgery, Cancer Surgery, Colonoscopy, EGD, Hysterectomy-Partial (right mastectomy), Tubal Ligation, Other Amputation: No Fractures: Yes (Left lower leg and foot) - *Social History Smoking Status: Former smoker Tobacco Type: cigarettes # Packs/Day (cigarettes): 0 #Yrs smoked (if former smoker): 0 Alcohol Intake: never Alcohol Intake Frequency:: other Substance Use Type: denies use *Occupational Status:: retired Housing: retirement Household Members: other *Travel in the last 8 weeks: None - Psychiatric History Pschychiatric History:: Reports:: Anxiety, Depression, Schizophrenia Family Hx:: Alcoholism, Diabetes Meds Home Medications Medication Instructions Recorded Confirmed Type atorvastatin 10 mg tablet 10 mg PO HS 30 Days #30 11/13/17 02/21/21 History Cetirizine HCl 10 mg PO HS 06/18/18 02/21/21 History Lactulose [Constulose] 20 gm PO DAILYP PRN 08/09/18 02/21/21 History fluticasone propionate 50 1 spray INTRANASAL DAILY 02/28/19 02/21/21 History mcg/actuation nasal spray,suspension trazodone 150 mg tablet 100 mg PO HS 30 Days #20.001 tab 08/20/19 02/21/21 History Bisoprolol Fumarate [Bisoprolol 5 mg PO HS 02/28/20 02/21/21 History 5mg Tablet] Furosemide [Furosemide 40MG tAB*] 40 mg PO DAILY 02/28/20 02/21/21 History Mag Carb/Aluminum Hydrox/Algin 30 ml PO Q4HP PRN 02/28/20 02/21/21 History [Acid Gone Antacid Liquid] Multivitamin,Ther and Minerals 1 each PO DAILY 02/28/20 02/21/21 History [Vitamin and Minerals] Acetaminophen 500 mg PO Q4HP PRN 02/29/20 02/21/21 History ondansetron HCL [Ondansetron 4mg 4 mg PO Q8HP PRN 02/29/20 02/21/21 History tab*] omeprazole 20 mg tablet,delayed 20 mg PO DAILY 03/30/20 02/21/21 History release ferrous sulfate 325 mg (65 mg 325 mg PO BID tab 10/19/20 02/21/21 History iron) tablet metformin 500 mg tablet 500 mg PO BID 10/19/20 02/21/21 History sertraline 100 mg tablet 50 mg PO DAILY 30 Days #15 tab 10/19/20 02/21/21 History Paliperidone [Paliperidone ER] 6 mg PO DAILY 02/21/21 02/21/21 History Allergies Allergy/AdvReac Type Severity Reaction Status Date / Time No Known Allergies Allergy Verified 02/03/21 08:56 Exam Vital signs and Labs for Last 24 Hours: Temp Pulse Resp BP Pulse Ox 98.3 F 124 H 18 109/58 L 100 02/21/21 06:51 02/21/21 06:51 02/21/21 06:51 02/21/21 06:51
--- NOTE | 2021-02-21 08:46 | PC.WOUNDNOTE ---
-Dime-sized stage 2 ulceration noted to coccyx -Healing abrasion noted to LT buttock
--- NOTE | 2021-02-21 08:59 | HMH.HP ---
*Admission Date: 02/21/21 *Chief complaint: gi bleed *History of present illness: 70-year-old female presented to ed with bleeding from rectum. Patient is a resident of extended care facility with history of reported cognitive impairment and schizophrenia. February 2020 admitted with symptoms of lower GI bleed with passage ofark bloody stool. Colonoscopy on 05/11/2020, was found to have extensive diverticulosis most notable in the distal transverse and left colon. No evidence of any bleeding. She was admitted and surgical consultation was obtained. Hemoglobin 12.8 with hematocrit of 38. Monitor of labs [facility] History I have reviewed the patient's past medical history: Yes Medical History: Reports:: Anxiety, Cancer, Congestive Heart Failure, Depression, Gastrointestinal Bleed, Hyperlipidemia, Hypertension, Renal Insufficiency, Seizures Denies:: Diabetes Mellitus Type 1, Diabetes Mellitus Type 2, MRSA *Have you ever received a pneumonia vaccine?: Yes *Have you received a flu vaccine this season?: Yes Other Medical History: Reports: Anemia, Arthritis, Other Laterality Cases: Right: Mastectomy Other Surgeries: Yes: No Previous Surgery, Cancer Surgery, Colonoscopy, EGD, Hysterectomy-Partial (right mastectomy), Tubal Ligation, Other Amputation: No Fractures: Yes (Left lower leg and foot) - *Social History Smoking Status: Former smoker Tobacco Type: cigarettes # Packs/Day (cigarettes): 0 #Yrs smoked (if former smoker): 0 Alcohol Intake: never Alcohol Intake Frequency:: other Substance Use Type: denies use *Occupational Status:: retired Housing: correction Household Members: other *Travel in the last 8 weeks: None - Psychiatric History Pschychiatric History:: Reports:: Anxiety, Depression, Schizophrenia Family Hx:: Alcoholism, Diabetes Review of Systems - Review of Systems Review of systems:: pertinent systems reviewed and negative unless documented below - Constitutional Denies body ache(s), Denies other - Eyes Denies blurry vision - ENT Denies abnormal hearing, Denies nasal congestion - *Cardiovascular Denies chest pain, Denies rapid, pounding, or irregular heartbeat - *Respiratory Denies cough - *Gastrointestinal Reports abdominal pain, Reports black, tarry stools, Denies bloating - *Genitourinary Denies abnormal vaginal bleeding, Denies urinary incontinence - *Neurologic Denies headache(s), Denies seizure-like activity - Psychiatric Denies lack of enjoyment, Denies seeing things others do not see - Endocrine Denies increased hunger - Hematologic/Lymphatic Denies enlarged lymph nodes - Allergic/Immunologic Denies lip swelling Meds Home Medications Medication Instructions Recorded Confirmed Type atorvastatin 10 mg tablet 10 mg PO HS 30 Days #30 11/13/17 02/21/21 History Cetirizine HCl 10 mg PO HS 06/18/18 02/21/21 History Lactulose [Constulose] 20 gm PO DAILYP PRN 08/09/18 02/21/21 History fluticasone propionate 50 1 spray NOSTRIL-B DAILY 02/28/19 02/21/21 History mcg/actuation nasal spray,suspension Bisoprolol Fumarate [Bisoprolol 5 mg PO HS 02/28/20 02/21/21 History 5mg Tablet] Furosemide [Furosemide 40MG tAB*] 40 mg PO DAILY 02/28/20 02/21/21 History Mag Carb/Aluminum Hydrox/Algin 30 ml PO Q4HP PRN 02/28/20 02/21/21 History [Acid Gone Antacid Liquid] Multivitamin,Ther and Minerals 1 each PO DAILY 02/28/20 02/21/21 History [Vitamin and Minerals] Acetaminophen 500 mg PO Q4HP PRN 02/29/20 02/21/21 History ondansetron HCL [Ondansetron 4mg 4 mg PO Q8HP PRN 02/29/20 02/21/21 History tab*] omeprazole 20 mg tablet,delayed 20 mg PO DAILY 03/30/20 02/21/21 History release ferrous sulfate 325 mg (65 mg 2 tab PO DAILY tab 10/19/20 02/21/21 History iron) tablet metformin 500 mg tablet 500 mg PO BID 10/19/20 02/21/21 History Paliperidone [Paliperidone ER] 6 mg PO DAILY 02/21/21 02/21/21 History Sertraline HCl 50 mg PO DAILY 02/21/21 02/21/21 History Trazodone HCl 100 mg PO H
--- NOTE | 2021-02-21 09:31 | PC.NURSE ---
Jeanmarie Louis notified of consult.
--- NOTE | 2021-02-21 09:52 | HMH.PHAVTE ---
[facility] Pharmacy VTE Monitoring - Patient Demographics Admission date: 02/21/21 Report Date: 02/21/21 Time: 09:52 Allergies/Adverse Reactions: Patient Allergies No Known Allergies Allergy (Verified 02/03/21 08:56) Height: 1.7 m Weight: 102 kg Patient Problems: Current Active Problems Diverticulosis of colon with hemorrhage (Acute) UTI (urinary tract infection) (Acute) SIRS (systemic inflammatory response syndrome) (Acute) Obesity (BMI 30-39.9) (Chronic) Schizoaffective disorder (Chronic) - VTE Risk Labs: VTE Related Lab Results Hgb 12.8 g/dL (12.2-16.2) 02/21/21 02:50 Hct 38.2 % (37.0-47.0) 02/21/21 02:50 Plt Count 304 K/mm3 (142-424) 02/21/21 02:50 BUN 18 mg/dl (7-17) H 02/21/21 02:50 Creatinine 0.80 mg/dl (0.52-1.04) 02/21/21 02:50 Estimated Creat Clear 86 mL/min (50-200) 02/21/21 02:50 Was VTE Risk Assessment Performed: Yes VTE Score: 6 VTE Risk Level: Moderate Risk Clinical Trial Participant: No - Prophylaxis VTE Prophylaxis Ordered?: Yes Types of VTE Prophylaxis: TEDS Knee High
[2021-02-21 10:24] LABS: Hemoglobin 11.3 g/dL (12.2-16.2)
[2021-02-21 10:25] LABS: Hematocrit 34.3 % (37.0-47.0)
[2021-02-21 10:30] LABS: Lactic Acid 2.5 mmol/L (0.7-2.1)
--- NOTE | 2021-02-21 10:31 | HMH.PHAINT ---
home medications verified [facility]
--- NOTE | 2021-02-21 11:17 | SW/DCPLANNER ---
Addendum entered by Maricruz Mckeon 02/24/21 09:51: I have updated Lorena with [facility]. This patient will return to [facility] today. Per Lorena at [facility] no further COVID testing is needed at this time. Original Note: This patient currently resides at [facility]. I spoke with Lorena this AM from [facility] and she has stated that patient is [facility] level of care. Patient is planned to surgery consult for today. I will continue to follow up with Lorena regarding this patient.
[2021-02-21 12:29] LABS: Basophils # 0.1 K/mm3 (0-0.2); Basophils % 0.4 % (0.1-2.0); Eosinophils % 0.1 % (0.1-12.0); Hematocrit 32.1 % (37.0-47.0); Hemoglobin 10.6 g/dL (12.2-16.2); Lymphocytes # 1.6 K/mm3 (0.7-4.5); Lymphocytes % 12.7 % (10-50); Mean Corpuscular Hemoglobin 28.7 pg (27.0-31.2); Mean Corpuscular Volume 86.9 fl (81-99); Mean Platelet Volume 8.9 fl (7.4-10.4); Monocytes # 0.4 K/mm3 (0.1-1.0); Monocytes % 2.9 % (1.7-9.3); Neutrophils # 10.8 K/mm3 (1.8-7.8); Neutrophils % 83.8 % (37.0-80.0); Platelet Count 258 K/mm3 (142-424); Red Blood Count 3.69 M/mm3 (4.20-5.40); Red Cell Distribution Width 13.4 % (11.5-17.5); White Blood Count 12.8 K/mm3 (4.8-10.8)
--- NOTE | 2021-02-21 13:01 | HMH.CNCARD ---
History of Present Illness Consult date: 02/21/21 Requesting physician: Carson Rizo Chief complaint: Lower GI bleed Additional Medical History:: 1. History of schizophrenia 2. Lexiscan Myoview, 03/2020, no ischemia with EF 65% 3. History of pulmonary hypertension with RVSP of 51 mmHg by echo 2018 A. Echocardiogram, 03/2020, technically difficult, biatrial enlargement, normal LV size with EF 55% and mild concentric LVH. Mildly enlarged RV with normal contractility, mild MR and TR. 4. History of GI bleed with upper and lower endoscopy, 2019 without evidence of GI bleeding. She did have extensive diverticulosis. 5. Decreased mental capacity 6. History of hypertension 7. History of hyperlipidemia 8. History of anxiety/depression History of present illness: Patient is a 70-year-old female who is a resident of extended care facility with history of reported cognitive impairment and schizophrenia. She had a prior admission in February 2020 with symptoms of lower GI bleed with passage of dark bloody stool. She underwent upper endoscopy during that admission which was unremarkable. She underwent outpatient colonoscopy on 05/11/2020. She was found to have extensive diverticulosis most notable in the distal transverse and left colon. No evidence of any bleeding. It was felt that she likely had experienced diverticular bleed in February 2020 during that admission. [facility] this morning with similar symptoms of passage of blood per rectum. She was admitted and surgical consultation was obtained. Hemoglobin 12.8 with hematocrit of 38. The above per Dr. Martinez Patient is alert in bed in the ICU in no acute distress. She denies any chest pain, pressure or tightness. She says she has no complaints at this time. Telemetry shows what appears to be sinus tachycardia and a rate of 120-130 bpm. Cardiology consulted for evaluation of tachycardia. [facility] History Medical History: Reports:: Anxiety, Cancer, Congestive Heart Failure, Depression, Gastrointestinal Bleed, Hyperlipidemia, Hypertension, Renal Insufficiency, Seizures Denies:: Diabetes Mellitus Type 1, Diabetes Mellitus Type 2, MRSA *Have you ever received a pneumonia vaccine?: Yes *Have you received a flu vaccine this season?: Yes Other Medical History: Reports: Anemia, Arthritis, Other Laterality Cases: Right: Mastectomy Other Surgeries: Yes: No Previous Surgery, Cancer Surgery, Colonoscopy, EGD, Hysterectomy-Partial (right mastectomy), Tubal Ligation, Other Amputation: No Fractures: Yes (Left lower leg and foot) - *Social History Smoking Status: Former smoker Tobacco Type: cigarettes # Packs/Day (cigarettes): 0 #Yrs smoked (if former smoker): 0 Alcohol Intake: never Alcohol Intake Frequency:: other Substance Use Type: denies use *Occupational Status:: retired Housing: [facility] Household Members: other *Travel in the last 8 weeks: None - Psychiatric History Pschychiatric History:: Reports:: Anxiety, Depression, Schizophrenia Family Hx:: Alcoholism, Diabetes Meds Home Medications Medication Instructions Recorded Confirmed Type atorvastatin 10 mg tablet 10 mg PO HS 30 Days #30 11/13/17 02/21/21 History Cetirizine HCl 10 mg PO HS 06/18/18 02/21/21 History Lactulose [Constulose] 20 gm PO DAILYP PRN 08/09/18 02/21/21 History fluticasone propionate 50 1 spray NOSTRIL-B DAILY 02/28/19 02/21/21 History mcg/actuation nasal spray,suspension Bisoprolol Fumarate [Bisoprolol 5 mg PO HS 02/28/20 02/21/21 History 5mg Tablet] Furosemide [Furosemide 40MG tAB*] 40 mg PO DAILY 02/28/20 02/21/21 History Mag Carb/Aluminum Hydrox/Algin 30 ml PO Q4HP PRN 02/28/20 02/21/21 History [Acid Gone Antacid Liquid] Multivitamin,Ther and Minerals 1 each PO DAILY 02/28/20 02/21/21 History [Vitamin and Minerals] Acetaminophen 500 mg PO Q4HP PRN 02/29/20 02/21/21 History ondansetron HCL [Ondansetron 4mg 4 mg PO Q8HP PRN 02/29/20 02/21/21 History tab*
--- NOTE | 2021-02-21 13:13 | DIET.NUTRFU ---
Addendum entered by Savanna Mckeon 02/23/21 13:34: Pt has colonoscopy today which resolved presumed diverticular bleed dt severe diverticulosis. She tolerated clears well and has been advanced to bland diet. Pt with no nutritional concerns at this time. Of note, on further assessment prior hx revealed pt's recent weight loss was related to COVID illness. Unfortunately documentation of details/time of illness unavailable. She lost 50# over unknown time frame. This has not been uncommon with COVID, especially in pt's with mental illness. As previously stated pt stated she has had adequate intakes and does eat fiber rich foods, though again pt is poor historian. She has been provided with diet edu for increasing fiber in diet, adequate intakes, DM, and CHF. BG moderate- avg. 130. Non pitting 1+ edema present. She had diarrhea 02/21 and 02/22, drank bowel prep today. Continuing to monitor. Original Note: Nutritional assessment, IP/consult completed. Pt with Schizoaffective disorder and resident at [facility]. Diet edu for weight loss, DM, CHF, and diverticulosis provided to best of ability, pt limited in communication providing 1 word answers and not asking questions. She denies any noncompliance with nutrition related recommendations. She denies excessive sodium, sugar, or overall energy intake. She states she does eat fiber rich foods, however I am aware that options are very limited at [place]. Unclear how accurate her hx is. Written diet edu provided as well and pt encouraged to reach out post dc with any questions/concerns.
[2021-02-21 15:09] LABS: Lactic Acid 4.6 mmol/L (0.7-2.1)
--- NOTE | 2021-02-21 18:35 | PC.NURSE ---
Pt has been pleasant and cooperative this shift. Alert to self. No complaints of pain. Pt is on room air with sats. >90%. Lungs CTA. No edema noted. Telemetry reveals ST. Dime-sized stage 2 ulceration noted to coccyx and healing abrasions noted to LT buttock. Polymem/Tegaderm applied. Appetite is good and pt is tolerating a clear liquid diet well. Pt has been turned/repositioned Q2H this shift. F/C is patent and draining clear, dark-yellow urine at bedside to gravity. 4 large, loose, dark-maroon stools this shift. 18 G peripheral IV in the RT AC is patent and infusing NS @ 50 ML/HR. VSS. Call light within reach. Will continue to monitor.
[2021-02-21 18:50] LABS: Reflex Lactic Add Lactic Reflex
[2021-02-21 19:32] LABS: Lactic Acid Follow Up (RFLX 1) 3.9 mmol/L (0.7-2.1)
--- NOTE | 2021-02-21 20:53 | PC.NURSE ---
Snack offered and trash pulled
[2021-02-21 21:19] LABS: Reflex Lactic (2 hrs) Add Lactic Reflex
[2021-02-21 22:01] LABS: Lactic Acid Follow up (RFLX 2) 2.3 mmol/L (0.7-2.1)
[2021-02-22] VITALS (22 sets, daily range): BP systolic 80–133; BP diastolic 38–72; PULSE 86–99; RESP 14–20; TEMP 36.6–37.3; O2SAT 97–100; BMI 34.3
[2021-02-22 02:58] LABS: Hematocrit 25.9 % (37.0-47.0)
[2021-02-22 03:00] LABS: Hemoglobin 8.5 g/dL (12.2-16.2)
[2021-02-22 06:14] LABS: Basophils # 0.1 K/mm3 (0-0.2); Basophils % 0.5 % (0.1-2.0); Eosinophils # 0.4 K/mm3 (0.0-0.4); Eosinophils % 3.7 % (0.1-12.0); Hematocrit 25.3 % (37.0-47.0); Hemoglobin 8.3 g/dL (12.2-16.2); Lymphocytes # 3.3 K/mm3 (0.7-4.5); Lymphocytes % 29.5 % (10-50); Mean Corpuscular HGB Conc 32.7 g/dL (31.8-35.4); Mean Corpuscular Hemoglobin 28.7 pg (27.0-31.2); Mean Corpuscular Volume 87.8 fl (81-99); Mean Platelet Volume 8.7 fl (7.4-10.4); Monocytes # 0.4 K/mm3 (0.1-1.0); Neutrophils # 6.9 K/mm3 (1.8-7.8); Neutrophils % 62.3 % (37.0-80.0); Platelet Count 203 K/mm3 (142-424); Red Blood Count 2.89 M/mm3 (4.20-5.40); Red Cell Distribution Width 13.6 % (11.5-17.5); White Blood Count 11.1 K/mm3 (4.8-10.8)
--- NOTE | 2021-02-22 06:39 | PC.NURSE ---
patietn has slept very little this shift, no loose stools noted. patient heart rate is decreased down to below 100 as shift progressed. breath sounds clear. ugalde draining cloudy urine
[2021-02-22 06:45] LABS: Anion Gap 11.6 mEq/L (5-15); Blood Urea Nitrogen 10 mg/dl (7-17); Carbon Dioxide 23 mmol/L (22.0-30.0); Chloride 108 mmol/L (98-107); Creatinine Clearance Estimated 83 mL/min (50-200); Estimated Glomerular Filt Rate 99 ml/min (>60); GFR (African American) 120 ML/MIN (>60); Glucose 113 mg/dl (74-100); Potassium 3.6 mmoL/L (3.5-5.1); Sodium 139 mmol/L (136-145)
[2021-02-22 06:58] LABS: Calcium 8.2 mg/dl (8.4-10.2)
--- NOTE | 2021-02-22 08:55 | HMH.ANESCL ---
[facility] Anesthesia Checklist - Patient Identification Patient Identification: Arm Band - Structural Data Admitted From: Inpatient Planned Operative Procedure/s: egd Consent for Planned Operative Procedure(s) Verified: Yes Verified Documents: Surgical Consent, History and Physical - NPO Status Verified Time NPO: 00:00 - Additional verifications Anesthesia Reactions: No - Airway Assessment C-Spine Mobility Assessed: Yes (mp3) TMJ Mobility Assessed: Yes Dentition: Edentulous - Neurological Assessment Level of Consciousness: Awake - Anesthesia Plan Anesthesia Risk discussed: Yes Anesthesia Plan: Verified ASA Class: III Anesthesia Type: [facility] History I have reviewed the patient's past medical history: Yes Medical History: Reports:: Anxiety, Cancer, Congestive Heart Failure, Depression, Gastrointestinal Bleed, Hyperlipidemia, Hypertension, Renal Insufficiency, Seizures Denies:: Diabetes Mellitus Type 1, Diabetes Mellitus Type 2, MRSA *Have you ever received a pneumonia vaccine?: Yes *Have you received a flu vaccine this season?: Yes Other Medical History: Reports: Anemia, Arthritis, Other Anesthesia experience/problems:: nac Laterality Cases: Right: Mastectomy Other Surgeries: Yes: Cancer Surgery, Colonoscopy, EGD, Hysterectomy-Partial (right mastectomy), Tubal Ligation, Other Amputation: No Fractures: Yes (Left lower leg and foot) - *Social History Smoking Status: Former smoker Tobacco Type: cigarettes # Packs/Day (cigarettes): 0 #Yrs smoked (if former smoker): 0 Alcohol Intake: never Alcohol Intake Frequency:: other Substance Use Type: denies use *Occupational Status:: retired Housing: [facility] Household Members: other *Travel in the last 8 weeks: None - Psychiatric History Pschychiatric History:: Reports:: Anxiety, Depression, Schizophrenia Family Hx:: Alcoholism, Diabetes
--- NOTE | 2021-02-22 09:08 | HMH.SCOPE ---
- Procedure: Date: 02/22/21 Patient Date of :: 1950 Procedure Performed:: Esophagogastroduodenoscopy Indications:: Patient is a 70-year-old female who is a resident of extended care facility with history of reported cognitive impairment and schizophrenia. She had a prior admission in February 2020 with symptoms of lower GI bleed with passage of dark bloody stool. She underwent upper endoscopy during that admission which was unremarkable. She underwent outpatient colonoscopy on 05/11/2020. She was found to have extensive diverticulosis most notable in the distal transverse and left colon. No evidence of any bleeding. It was felt that she likely had experienced diverticular bleed in February 2020 during that admission. She was brought in from the senior living earlier this morning with similar symptoms of passage of blood per rectum. She was admitted and surgical consultation was obtained. Hemoglobin 12.8 with hematocrit of 38. She did show decreasing hemoglobin and hematocrit. Plan was made for upper endoscopy to evaluate upper GI source for blood loss. Performing Provider:: Bill Martinez MD Referring Provider:: Sandeep Rizo MD Sedation:: MAC sedation Procedure:: Patient was taken to endoscopy procedure room. She was positioned in lateral decubitus position. Adequate intravenous sedation was achieved. Olympus endoscope was inserted via the oropharynx. Esophagus appeared normal. Gastroesophageal junction was encountered at approximately 40 cm from the incisors. Stomach was insufflated. Retroflexion revealed small hiatal hernia. There was some focal patchy gastritis in the antrum but no evidence of any bleeding. Pylorus was traversed. Duodenal bulb and duodenal sweep are unremarkable. Endoscope was withdrawn. Findings:: Mild to moderate nonerosive antral gastritis Small hiatal hernia No evidence of etiology for blood loss on upper endoscopy Recommendations:: Continue to monitor. Tentatively plan for colonoscopy tomorrow Complications:: None immediately apparent Estimated blood obtained (mL): 0
--- NOTE | 2021-02-22 09:32 | HMH.ACPN2 ---
Internal Medicine - PN: Subj *Date: 02/22/21 *Time: 10:29 Interval history: 70-year-old female patient lying in bed resting quietly, she denies any chest pain, shortness of breath, nausea or vomiting during the night. Heart rate has decreased to less than 100 bpm with medication changes, she is scheduled for an EGD today. Exam Vital signs and Labs for Last 24 Hours: Temp Pulse Resp BP Pulse Ox 98.7 F 95 H 18 106/58 L 99 02/22/21 07:31 02/22/21 07:31 02/22/21 07:02/22/21 07:31 02/22/21 07:31 Laboratory Results - last 24 hr 02/21/21 03:41: Urine Color Dk yellow, Urine Appearance Cloudy, Urine pH 5.0, Ur Specific [place] >= 1.030, Urine Protein Trace, Urine Glucose (UA) Negative, Urine Ketones 1+, Urine Blood 1+, Urine Nitrate Negative, Urine Bilirubin Negative, Urine Urobilinogen 1.0, Ur Leukocyte Esterase 2+ A, Urine RBC 5-10, Urine WBC 50-100, Ur Squamous Epith Cells 20-50, Urine Bacteria 4+ 02/21/21 10:05: Lactate 2.5 H 02/21/21 10:05: Hgb 11.3 L D, Hct 34.3 L 02/21/21 12:16: WBC 12.8 H, RBC 3.69 L, Hgb 10.6 L, Hct 32.1 L, MCV 86.9, MCH 28.7, MCHC 33.0, RDW 13.4, Plt Count 258, MPV 8.9, Neut % (Auto) 83.8 H, Lymph % (Auto) 12.7, [place] % (Auto) 2.9, Eos % (Auto) 0.1, Baso % (Auto) 0.4, Neut # (Auto) 10.8 H, Lymph # (Auto) 1.6, [place] # (Auto) 0.4, Eos # (Auto) 0.0, Baso # (Auto) 0.1 02/21/21 14:00: Lactate 4.6 H 02/21/21 18:40: Hgb 8.5 L D, Hct 25.9 L 02/21/21 19:15: Lactate 3.9 H 02/21/21 21:45: Lactate 2.3 H 02/22/21 05:44: WBC 11.1 H, RBC 2.89 L, Hgb 8.3 L, Hct 25.3 L, MCV 87.8, MCH 28.7, MCHC 32.7, RDW 13.6, Plt Count 203, MPV 8.7, Neut % (Auto) 62.3, Lymph % (Auto) 29.5, [place] % (Auto) 4.0, Eos % (Auto) 3.7, Baso % (Auto) 0.5, Neut # (Auto) 6.9, Lymph # (Auto) 3.3, Iron # (Auto) 0.4, Eos # (Auto) 0.4, Baso # (Auto) 0.1 02/22/21 05:44: Sodium 139, Potassium 3.6, Chloride 108 H, Carbon Dioxide 23, Anion Gap 11.6, BUN 10 D, Creatinine 0.60 D, Estimated Creat Clear 83, Estimated GFR 99, Est GFR ( Amer) 120 D, Glucose 113 H, Calcium 8.2 L D I & O for Last 24 hours: Intake & Output 02/19/21 02/20/21 02/21/21 02/22/21 23:59 23:59 23:59 23:59 Intake Total 4740 / 4740 600 / 600 Output Total 1000 / 1000 280 / 280 Balance 3740 / 3740 320 / 320 Weight 224 lb 13.944 oz 219 lb Microbiology Reports for the Last 24 Hours: Microbiology 02/21/21 03:41 Urine,Catheterized Urine Culture - Preliminary Gram Negative Rods - Constitutional no acute distress, obese - *Routine HEENT Exam Head: Present: normocephalic Eye: Present: EOMI ENT: Present: mucous membranes moist - *Routine Neck Exam Present: trachea midline. Absent: tracheal deviation - *Routine Respiratory Exam Present: CTA bilaterally. Absent: accessory muscle use - *Routine Cardiovascular Exam Present: RRR - *Routine Abdominal Exam Present: soft, normoactive bowel sounds. Absent: tenderness, firm - *Routine Extremities Exam Present: edema, full ROM, pulses intact. Absent: cyanosis, calf tenderness - *Routine Skin Exam Present: intact, dry, warm. Absent: cyanosis, erythema - *Routine Neurological Exam Present: alert, altered mental status. Absent: normal reflexes - Routine Psychiatric Exam Present: unable to assess Assessment and Plan (1) Tachycardia with heart rate 121-140 beats per minute Status: Acute Category: Medical Code(s): R00.0 - Tachycardia, unspecified (2) Diverticulosis of colon with hemorrhage Status: Acute Category: Medical Code(s): K57.31 - Diverticulosis of large intestine without perforation or abscess with bleeding (3) Schizoaffective disorder Status: Chronic Qualifiers: Schizoaffective disorder type: unspecified Qualified Code(s): F25.9 - Schizoaffective disorder, unspecified Category: Medical Code(s): F25.9 - Schizoaffective disorder, unspecified (4) HLD (hyperlipidemia) Status: Chronic Qualifiers: Hyperlipidemia type:
--- NOTE | 2021-02-22 09:59 | HMH.PNCARD ---
Subjective Date: 02/22/21 Time: 09:59 Principal diagnosis: Tachycardia, anemia Interval history: 70-year-old black female in bed in no acute distress. She had a EGD performed this morning with no etiology for her anemia identified. Colonoscopy being considered. Part of her anemia may be dilutional. Patient heart rate has improved with addition of her home bisoprolol dose. Exam Vital signs and Labs for Last 24 Hours: Temp Pulse Resp BP Pulse Ox 98.9 F 95 H 18 94/47 L 98 02/22/21 09:10 02/22/21 09:30 02/22/21 09:30 02/22/21 09:30 02/22/21 09:30 Laboratory Results - last 24 hr 02/21/21 03:41: Urine Color Dk yellow, Urine Appearance Cloudy, Urine pH 5.0, Ur Specific [place] >= 1.030, Urine Protein Trace, Urine Glucose (UA) Negative, Urine Ketones 1+, Urine Blood 1+, Urine Nitrate Negative, Urine Bilirubin Negative, Urine Urobilinogen 1.0, Ur Leukocyte Esterase 2+ A, Urine RBC 5-10, Urine WBC 50-100, Ur Squamous Epith Cells 20-50, Urine Bacteria 4+ 02/21/21 10:05: Lactate 2.5 H 02/21/21 10:05: Hgb 11.3 L D, Hct 34.3 L 02/21/21 12:16: WBC 12.8 H, RBC 3.69 L, Hgb 10.6 L, Hct 32.1 L, MCV 86.9, MCH 28.7, MCHC 33.0, RDW 13.4, Plt Count 258, MPV 8.9, Neut % (Auto) 83.8 H, Lymph % (Auto) 12.7, [place] % (Auto) 2.9, Eos % (Auto) 0.1, Baso % (Auto) 0.4, Neut # (Auto) 10.8 H, Lymph # (Auto) 1.6, [place] # (Auto) 0.4, Eos # (Auto) 0.0, Baso # (Auto) 0.1 02/21/21 14:00: Lactate 4.6 H 02/21/21 18:40: Hgb 8.5 L D, Hct 25.9 L 02/21/21 19:15: Lactate 3.9 H 02/21/21 21:45: Lactate 2.3 H 02/22/21 05:44: WBC 11.1 H, RBC 2.89 L, Hgb 8.3 L, Hct 25.3 L, MCV 87.8, MCH 28.7, MCHC 32.7, RDW 13.6, Plt Count 203, MPV 8.7, Neut % (Auto) 62.3, Lymph % (Auto) 29.5, [place] % (Auto) 4.0, Eos % (Auto) 3.7, Baso % (Auto) 0.5, Neut # (Auto) 6.9, Lymph # (Auto) 3.3, [place] # (Auto) 0.4, Eos # (Auto) 0.4, Baso # (Auto) 0.1 02/22/21 05:44: Sodium 139, Potassium 3.6, Chloride 108 H, Carbon Dioxide 23, Anion Gap 11.6, BUN 10 D, Creatinine 0.60 D, Estimated Creat Clear 83, Estimated GFR 99, Est GFR ( Amer) 120 D, Glucose 113 H, Calcium 8.2 L D I & O for Last 24 hours: Intake & Output 02/19/21 02/20/21 02/21/21 02/22/21 11:59 11:59 11:59 11:59 Intake Total 2059 / 2059 3280 / 3280 Output Total 1280 / 1280 Balance 2059 / 2059 Weight 224 lb 13.944 oz 219 lb Microbiology Reports for the Last 24 Hours: Microbiology 02/21/21 03:41 Urine,Catheterized Urine Culture - Preliminary Gram Negative Rods - Constitutional no acute distress - *Routine HEENT Exam Head: Present: normocephalic Eye: Present: EOMI, PERRL ENT: Present: mucous membranes moist - *Routine Neck Exam Present: supple. Absent: lymphadenopathy - *Routine Respiratory Exam Present: CTA bilaterally - *Routine Cardiovascular Exam Present: RRR - *Routine Abdominal Exam Present: soft, normoactive bowel sounds. Absent: tenderness - *Routine Extremities Exam Absent: cyanosis, clubbing, edema - *Routine Skin Exam Present: warm. Absent: rash - *Routine Neurological Exam Present: alert, oriented X3 Progress Note: A&P (1) Diverticulosis of colon with hemorrhage Status: Acute (2) Schizoaffective disorder Status: Chronic (3) HLD (hyperlipidemia) Status: Chronic (4) HTN (hypertension) Status: Chronic (5) Obesity Status: Chronic (6) Pulmonary hypertension Status: Chronic (7) Sinus tachycardia Status: Acute Assessment and Plan for All Diagnoses:: 1. Sinus tachycardia, likely related to #2, improved with bisoprolol therapy. 2. Anemia, work-up in progress. This contributes to the sinus tachycardia. 3. Pulmonary hypertension chronic and clinically stable. 4. UTI, on antibiotic therapy No further cardiac work-up recommended. Nothing further to add at this point. Please call if needed.
--- NOTE | 2021-02-22 16:37 | PC.NURSE ---
Pt has been pleasant and cooperative this shift. Alert to self. No complaints of pain. Pt is on room air with sats. >90%. Lungs CTA. No edema noted. Telemetry reveals ST/NSR. Dime-sized stage 2 ulceration noted to coccyx and healing abrasions noted to LT buttock. Pressure-relief dressing in place. Appetite is good and pt is tolerating a clear liquid diet well. Pt is post-EGD and is NPO after midnight tonight for a possible colonoscopy in the AM. Pt has been turned/repositioned Q2H this shift. F/C is patent and draining clear, yellow urine at bedside to gravity. 2 large, loose, dark-black stools this shift. 18 G peripheral IV in the RT AC is patent and infusing NS @ 50 ML/HR. VSS. Call light within reach. Will continue to monitor.
[2021-02-23] VITALS (27 sets, daily range): BP systolic 72–135; BP diastolic 30–96; PULSE 75–100; RESP 15–20; TEMP 36.2–37.4; O2SAT 95–100; BMI 33.7
--- NOTE | 2021-02-23 04:13 | PC.NURSE ---
pt alert and oriented to self only, finished bowel prep around 0000, has had numerous BMs t/o shift, ugalde in place and 1300 mL out so far this shift, no complaints of pain
[2021-02-23 06:57] LABS: Anion Gap 9.7 mEq/L (5-15); Blood Urea Nitrogen 3 mg/dl (7-17); Carbon Dioxide 24 mmol/L (22.0-30.0); Chloride 110 mmol/L (98-107); Creatinine Clearance Estimated 82 mL/min (50-200); Estimated Glomerular Filt Rate 122 ml/min (>60); GFR (African American) 148 ML/MIN (>60); Glucose 105 mg/dl (74-100); Potassium 3.7 mmoL/L (3.5-5.1); Sodium 140 mmol/L (136-145)
[2021-02-23 08:06] LABS: Monocytes # 0.3 K/mm3 (0.1-1.0)
[2021-02-23 08:18] LABS: Basophils % 0.2 % (0.1-2.0); Eosinophils # 0.2 K/mm3 (0.0-0.4); Eosinophils % 2.3 % (0.1-12.0); Lymphocytes # 2.5 K/mm3 (0.7-4.5); Lymphocytes % 24.4 % (10-50); Mean Corpuscular HGB Conc 33.9 g/dL (31.8-35.4); Mean Corpuscular Hemoglobin 29.4 pg (27.0-31.2); Mean Corpuscular Volume 86.7 fl (81-99); Mean Platelet Volume 8.1 fl (7.4-10.4); Monocytes % 3.3 % (1.7-9.3); Neutrophils # 7.2 K/mm3 (1.8-7.8); Neutrophils % 69.8 % (37.0-80.0); Platelet Count 210 K/mm3 (142-424); Red Blood Count 2.57 M/mm3 (4.20-5.40); White Blood Count 10.4 K/mm3 (4.8-10.8)
[2021-02-23 08:23] LABS: Hematocrit 22.2 % (37.0-47.0); Hemoglobin 7.5 g/dL (12.2-16.2)
--- NOTE | 2021-02-23 11:18 | HMH.ANESCL ---
[facility] Anesthesia Checklist - Patient Identification Patient Identification: Arm Band - Structural Data Admitted From: Inpatient Planned Operative Procedure/s: Colonoscopy Consent for Planned Operative Procedure(s) Verified: Yes - NPO Status Verified Time NPO: 00:00 - Additional verifications Anesthesia Reactions: No - Airway Assessment C-Spine Mobility Assessed: Yes TMJ Mobility Assessed: Yes Dentition: Edentulous - Neurological Assessment Level of Consciousness: Awake Hx Seizures: Yes Numbness or tingling in extremities: No - Anesthesia Plan Anesthesia Risk discussed: Yes Anesthesia Plan: Verified ASA Class: III Anesthesia Type: MAC [facility] History Medical History: Reports:: Anxiety, Cancer, Congestive Heart Failure, Depression, Gastrointestinal Bleed, Hyperlipidemia, Hypertension, Renal Insufficiency, Seizures Denies:: Diabetes Mellitus Type 1, Diabetes Mellitus Type 2, MRSA *Have you ever received a pneumonia vaccine?: Yes *Have you received a flu vaccine this season?: Yes Other Medical History: Reports: Anemia, Arthritis, Other Anesthesia experience/problems:: nac Laterality Cases: Right: Mastectomy Other Surgeries: Yes: No Previous Surgery, Cancer Surgery, Colonoscopy, EGD, Hysterectomy-Partial (right mastectomy), Tubal Ligation, Other Amputation: No Fractures: Yes (Left lower leg and foot) - *Social History Smoking Status: Former smoker Tobacco Type: cigarettes # Packs/Day (cigarettes): 0 #Yrs smoked (if former smoker): 0 Alcohol Intake: never Alcohol Intake Frequency:: other Substance Use Type: denies use *Occupational Status:: retired Housing: care home Household Members: other *Travel in the last 8 weeks: None - Psychiatric History Pschychiatric History:: Reports:: Anxiety, Depression, Schizophrenia Family Hx:: Alcoholism, Diabetes
--- NOTE | 2021-02-23 11:40 | PC.NURSE ---
patient in scope room and sedated @ 1130. Blood infusion stop @ 1128.
--- NOTE | 2021-02-23 12:08 | HMH.SCOPE ---
- Procedure: Date: 02/23/21 Patient Date of :: 1950 Procedure Performed:: Colonoscopy Indications:: Patient is a 70-year-old female who is a resident of extended care facility with history of reported cognitive impairment and schizophrenia. She had a prior admission in February 2020 with symptoms of lower GI bleed with passage of dark bloody stool. She underwent upper endoscopy during that admission which was unremarkable. She underwent outpatient colonoscopy on 05/11/2020. She was found to have extensive diverticulosis most notable in the distal transverse and left colon. No evidence of any bleeding. It was felt that she likely had experienced diverticular bleed in February 2020 during that admission. She was brought in from the shelter and admitted on 02/21/2021 with similar symptoms of passage of blood per rectum. She was admitted and surgical consultation was obtained. Hemoglobin 12.8 with hematocrit of 38. She did show decreasing hemoglobin and hematocrit. She underwent upper endoscopy on 02/22/2021 which was unremarkable. Hemoglobin decreased to 7.5. Plan was made for colonoscopy. Performing Provider:: Bill Martinez MD Referring Provider:: Sandeep Rizo MD Sedation:: MAC sedation Procedure:: Patient was taken to endoscopy procedure room. She was positioned in a lateral decubitus position. Adequate intravenous sedation was achieved with anesthesia titration of propofol. Variable stiffness Olympus colonoscope was inserted via the anus. With some difficulty it was advanced to the cecum. Colonic preparation was fair. Somewhat limited visualization of the cecum due to preparation and due to redundancy and floppiness of the sigmoid colon. There is no evidence of any active bleeding. Colonoscope was slowly withdrawn through the colon with careful surveillance. She had pandiverticulosis with very severe diverticular disease in the left colon. No evidence of any active bleeding. Colonoscope was withdrawn. Findings:: Pandiverticulosis with very severe left-sided diverticular disease No evidence of any active bleeding Recommendations:: Presumed diverticular bleed, now resolved. Recommend transfuse to appropriate level and monitor for stability. Complications:: None Estimated blood obtained (mL): 0
--- NOTE | 2021-02-23 12:12 | PC.NURSE ---
restarted blood infusion at 1205-
--- NOTE | 2021-02-23 13:30 | HMH.ACPN2 ---
Internal Medicine - PN: Subj *Date: 02/23/21 *Time: 08:10 Exam Vital signs and Labs for Last 24 Hours: Temp Pulse Resp BP Pulse Ox 98.7 F 88 16 97/68 L 100 02/23/21 13:05 02/23/21 12:13 02/23/21 13:05 02/23/21 13:05 02/23/21 13:05 Laboratory Results - last 24 hr 02/23/21 05:30: Sodium 140, Potassium 3.7, Chloride 110 H, Carbon Dioxide 24, Anion Gap 9.7, BUN 3 L D, Creatinine 0.50 L, Estimated Creat Clear 82, Estimated GFR 122, Est GFR ( Amer) 148 D, Glucose 105 H, Calcium 8.0 L 02/23/21 08:00: WBC 10.4, RBC 2.57 L, Hgb 7.5 L*, Hct 22.2 L*, MCV 86.7, MCH 29.4, MCHC 33.9, RDW 14.0, Plt Count 210, MPV 8.1, Neut % (Auto) 69.8, Lymph % (Auto) 24.4, [place] % (Auto) 3.3, Eos % (Auto) 2.3, Baso % (Auto) 0.2, Neut # (Auto) 7.2, Lymph # (Auto) 2.5, [place] # (Auto) 0.3, Eos # (Auto) 0.2, Baso # (Auto) 0.0 02/23/21 09:32: Blood Type A Positive, Antibody Screen Negative, Crossmatch (AHG) See Detail I & O for Last 24 hours: Intake & Output 02/21/21 02/22/21 02/23/21 02/24/21 11:59 11:59 11:59 11:59 Intake Total 2059 3280 / 3280 2744 / 2744 Output Total 1280 / 1280 3400 / 3400 Balance 2059 -656 / -656 Weight 224 lb 13.944 oz 219 lb 215 lb 7 oz Microbiology Reports for the Last 24 Hours: Microbiology 02/21/21 03:41 Urine,Catheterized Urine Culture - Preliminary Gram Negative Rods - Constitutional no acute distress, obese - *Routine HEENT Exam Head: Present: normocephalic Eye: Present: PERRL ENT: Present: mucous membranes moist - *Routine Neck Exam Present: supple. Absent: lymphadenopathy - *Routine Respiratory Exam Present: CTA bilaterally - *Routine Cardiovascular Exam Present: RRR - *Routine Abdominal Exam Present: soft, normoactive bowel sounds. Absent: tenderness - *Routine Extremities Exam Present: normal capillary refill. Absent: cyanosis, clubbing, edema - *Routine Skin Exam Present: warm. Absent: rash - *Routine Neurological Exam Present: alert - Routine Psychiatric Exam Present: normal affect Assessment and Plan (1) Tachycardia with heart rate 121-140 beats per minute Status: Acute Category: Medical Code(s): R00.0 - Tachycardia, unspecified (2) Diverticulosis of colon with hemorrhage Status: Acute Category: Medical Code(s): K57.31 - Diverticulosis of large intestine without perforation or abscess with bleeding (3) Schizoaffective disorder Status: Chronic Qualifiers: Schizoaffective disorder type: unspecified Qualified Code(s): F25.9 - Schizoaffective disorder, unspecified Category: Medical Code(s): F25.9 - Schizoaffective disorder, unspecified (4) HLD (hyperlipidemia) Status: Chronic Qualifiers: Hyperlipidemia type: unspecified Qualified Code(s): E78.5 - Hyperlipidemia, unspecified Category: Medical Code(s): E78.5 - Hyperlipidemia, unspecified (5) HTN (hypertension) Status: Chronic Qualifiers: Hypertension type: essential hypertension Category: Medical Code(s): I10 - Essential (primary) hypertension (6) Obesity Status: Chronic Qualifiers: Obesity type: due to excess calories Obesity classification: adult class 3 (BMI >= 40) Serious obesity comorbidity presence: with serious comorbidity Body mass index: BMI 45.0-49.9 Qualified Code(s): E66.01 - Morbid (severe) obesity due to excess calories; Z68.42 - Body mass index [BMI] 45.0-49.9, adult Category: Medical Code(s): E66.9 - Obesity, unspecified (7) Pulmonary hypertension Status: Chronic Category: Medical Code(s): I27.20 - Pulmonary hypertension, unspecified - Assessment and plan all Dx Assessment and Plan for all problems:: rounded with dr bella all orders per shayne colonscopy today
--- NOTE | 2021-02-23 15:10 | PC.NURSE ---
Report received from Peyton Henriquez RN
--- NOTE | 2021-02-23 16:14 | INFXCTL.NOTE ---
Pt is alert to self. Lungs are clear, bowel sounds active x4. She remains on RA. She is s/p a colonoscopy which she has tolerated well. She has received 2 units of PRBC's. 1 hour post HH has been ordered. Wilfredo was dc'd this afternoon. Brief in place as patient is incontinent. Dressing noted to buttocks. She has voiced no complaints at all since I've assumed care of patient.
[2021-02-23 19:13] LABS: Hematocrit 30.7 % (37.0-47.0)
[2021-02-23 21:25] LABS: Hemoglobin 10.3 g/dL (12.2-16.2)
[2021-02-24] VITALS: BP 111/71; PULSE 78; PULSE 90; RESP 18; TEMP 36.7; O2SAT 98
--- NOTE | 2021-02-24 03:36 | PC.NURSE ---
Pt is A/O to self. No acute changes this shift. Slept well all night. IV is patent with NS infusing @ 50ml/hr. Pt has voided this shift since D/C aftab on day shift with no issues. Pt is on RA with stats >90. Pt denies pain. Showing NSR on tele. Call light within reach, VSS, no concerns at this time.
[2021-02-24 04:00] VITALS: BP 112/69; PULSE 80; RESP 18; TEMP 36.9; O2SAT 96
[2021-02-24 05:00] VITALS: BMI 34.5
[2021-02-24 06:49] LABS: Basophils % 0.2 % (0.1-2.0); Eosinophils # 0.3 K/mm3 (0.0-0.4); Eosinophils % 2.8 % (0.1-12.0); Hemoglobin 9.7 g/dL (12.2-16.2); Lymphocytes # 2.2 K/mm3 (0.7-4.5); Lymphocytes % 24.5 % (10-50); Mean Corpuscular HGB Conc 34.5 g/dL (31.8-35.4); Mean Corpuscular Volume 86.9 fl (81-99); Monocytes # 0.3 K/mm3 (0.1-1.0); Monocytes % 3.1 % (1.7-9.3); Neutrophils # 6.1 K/mm3 (1.8-7.8); Neutrophils % 69.3 % (37.0-80.0); Platelet Count 205 K/mm3 (142-424); Red Blood Count 3.23 M/mm3 (4.20-5.40); Red Cell Distribution Width 14.5 % (11.5-17.5); White Blood Count 8.8 K/mm3 (4.8-10.8)
[2021-02-24 07:01] LABS: Calcium 8.2 mg/dl (8.4-10.2); Carbon Dioxide 26 mmol/L (22.0-30.0); Chloride 109 mmol/L (98-107); Creatinine Clearance Estimated 84 mL/min (50-200); Estimated Glomerular Filt Rate 99 ml/min (>60); GFR (African American) 120 ML/MIN (>60); Glucose 98 mg/dl (74-100); Sodium 138 mmol/L (136-145)
--- NOTE | 2021-02-24 07:05 | HMH.GSPN ---
Subjective Narrative: No changes per nursing Progress Note: A&P (1) Tachycardia with heart rate 121-140 beats per minute Status: Acute (2) Diverticulosis of colon with hemorrhage Status: Acute Assessment and plan: No sign of ongoing hemorrhage noted on recent colonoscopy. Likely discharge soon with outpatient follow-up (3) Schizoaffective disorder Status: Chronic (4) HLD (hyperlipidemia) Status: Chronic (5) HTN (hypertension) Status: Chronic (6) Obesity Status: Chronic (7) Pulmonary hypertension Status: Chronic Exam Vital signs and Labs for Last 24 Hours: Temp Pulse Resp BP Pulse Ox 98.4 F 80 18 112/69 96 02/24/21 04:00 02/24/21 04:00 02/24/21 04:00 02/24/21 04:00 02/24/21 04:00 Laboratory Results - last 24 hr 02/23/21 05:30: Sodium 140, Potassium 3.7, Chloride 110 H, Carbon Dioxide 24, Anion Gap 9.7, BUN 3 L D, Creatinine 0.50 L, Estimated Creat Clear 82, Estimated GFR 122, Est GFR ( Amer) 148 D, Glucose 105 H, Calcium 8.0 L 02/23/21 08:00: WBC 10.4, RBC 2.57 L, Hgb 7.5 L*, Hct 22.2 L*, MCV 86.7, MCH 29.4, MCHC 33.9, RDW 14.0, Plt Count 210, MPV 8.1, Neut % (Auto) 69.8, Lymph % (Auto) 24.4, [place] % (Auto) 3.3, Eos % (Auto) 2.3, Baso % (Auto) 0.2, Neut # (Auto) 7.2, Lymph # (Auto) 2.5, [place] # (Auto) 0.3, Eos # (Auto) 0.2, Baso # (Auto) 0.0 02/23/21 09:32: Blood Type A Positive, Antibody Screen Negative, Crossmatch (AHG) See Detail 02/23/21 18:11: Hgb 10.3 L D, Hct 30.7 L 02/24/21 06:35: WBC 8.8, RBC 3.23 L D, Hgb 9.7 L, Hct 28.0 L, MCV 86.9, MCH 30.0, MCHC 34.5, RDW 14.5, Plt Count 205, MPV 8.0, Neut % (Auto) 69.3, Lymph % (Auto) 24.5, [place] % (Auto) 3.1, Eos % (Auto) 2.8, Baso % (Auto) 0.2, Neut # (Auto) 6.1, Lymph # (Auto) 2.2, [place] # (Auto) 0.3, Eos # (Auto) 0.3, Baso # (Auto) 0.0 I & O for Last 24 hours: Intake & Output 02/21/21 02/22/21 02/23/21 02/24/21 11:59 11:59 11:59 11:59 Intake Total 2059 / 2059 3280 / 3280 2744 / 2744 1990 Output Total 1280 / 1280 3400 / 3400 800 / 800 Balance 2059 / 2059 -656 / -656 1191 / 1191 Weight 224 lb 13.944 oz 219 lb 215 lb 7 oz 220 lb 1 oz Microbiology Reports for the Last 24 Hours: Microbiology 02/21/21 03:41 Urine,Catheterized Urine Culture - Preliminary Gram Negative Rods - Constitutional no acute distress - *Routine Respiratory Exam Absent: respiratory distress - *Routine Cardiovascular Exam Comments: Regular rate
[2021-02-24 07:10] LABS: Blood Urea Nitrogen 2 mg/dl (7-17)
[2021-02-24 08:00] VITALS: BP 136/81; PULSE 88; PULSE 90; RESP 17; TEMP 36.9; O2SAT 99
--- NOTE | 2021-02-24 09:38 | HMH.DCSUM ---
General - General Admission date:: 02/21/21 Discharge date: 02/24/21 HPI HPI: 70-year-old female presented to ed with bleeding from rectum. Patient is a resident of extended care facility with history of reported cognitive impairment and schizophrenia. February 2020 admitted with symptoms of lower GI bleed with passage ofark bloody stool. Colonoscopy on 05/11/2020, was found to have extensive diverticulosis most notable in the distal transverse and left colon. No evidence of any bleeding. She was admitted and surgical consultation was obtained. Hemoglobin 12.8 with hematocrit of 38. Monitor of labs Hospital Course Hospital Course: 70-year-old female presented to ed with bleeding from rectum. Patient is a resident of extended care facility with history of reported cognitive impairment and schizophrenia. February 2020 admitted with symptoms of lower GI bleed with passage ofark bloody stool. Colonoscopy on 05/11/2020, was found to have extensive diverticulosis most notable in the distal transverse and left colon. No evidence of any bleeding. She was admitted and surgical consultation was obtained. Hemoglobin 12.8 with hematocrit of 38. Monitor of labs 02/21/21 Abd/Pelvis CT: FINDINGS: Lungs: There is some left basilar atelectasis. Liver: There is fatty infiltration of the liver. Gallbladder and bile ducts: No calcified stones. No ductal dilation. Pancreas: Normal. No ductal dilation. Spleen: Normal. No splenomegaly. Adrenal glands: Normal. No mass. Kidneys and ureters: Normal. No hydronephrosis. Stomach and bowel: There is fluid throughout the nondilated colon extending to the rectum a nonspecific finding associated with gastroenteritis and colitis. There is extensive diverticulosis of the colon. Appendix: No evidence of appendicitis. Intraperitoneal space: No free air. No significant fluid collection. Vasculature: No abdominal aortic aneurysm. Lymph nodes: No enlarged lymph nodes. Urinary bladder: There is a Villalobos catheter with its distal tip in the bladder. Reproductive: The uterus is surgically absent. Bones/joints: There are some degenerative changes of the lower lumbar spine and the hips. Soft tissues: There is diastasis of the rectus abdominus. IMPRESSION: 1. There is fluid throughout the colon which is not a specific finding and can be seen with gastroenteritis and/or colitis. 2. Extensive colonic diverticulosis. Electronically signed by Jamie Sherman Cardiology has seern and recommends: 1. Sinus tachycardia, likely related to #2, improved with bisoprolol therapy. 2. Anemia, work-up in progress. This contributes to the sinus tachycardia. 3. Pulmonary hypertension chronic and clinically stable. 4. UTI, on antibiotic therapy No further cardiac work-up recommended. Nothing further to add at this point. Please call if needed. General Surgery has performed an EGD: Procedure:: Patient was taken to endoscopy procedure room. She was positioned in lateral decubitus position. Adequate intravenous sedation was achieved. Olympus endoscope was inserted via the oropharynx. Esophagus appeared normal. Gastroesophageal junction was encountered at approximately 40 cm from the incisors. Stomach was insufflated. Retroflexion revealed small hiatal hernia. There was some focal patchy gastritis in the antrum but no evidence of any bleeding. Pylorus was traversed. Duodenal bulb and duodenal sweep are unremarkable. Endoscope was withdrawn. Findings:: Mild to moderate nonerosive antral gastritis Small hiatal hernia No evidence of etiology for blood loss on upper endoscopy Recommendations:: Continue to monitor. Tentatively plan for colonoscopy tomorrow General Surgery has performed a Colonoscopy: Procedure:: Patient was taken to endoscopy procedure room. She was positioned in a lateral decubitus position. Adequate intravenous sedation was achieved with anesthesia titration of pr
[2021-02-24 11:25] VITALS: BP 106/62; PULSE 94; RESP 19; TEMP 36.7; O2SAT 99
[2021-02-24 12:00] VITALS: PULSE 100
== END 2021-02-24 15:00 ==
LOC: ER 03:19 → ICU 06:03 → 2ND 12:57
PROVIDERS: Nurse Practitioner Family; Surgery; Admitting Provider Emergency Medicine; Emergency Provider Emergency Medicine; PCP Emergency Medicine; Visit Provider Emergency Medicine
PROC: 0DJ08ZZ Inspection of Upper Intestinal Tract, Via Natural or Artificial Opening Endoscopic (ICD-10-PCS; CPT 43235; principal; 2021-02-22 11:30)
PROC: 0DJD8ZZ Inspection of Lower Intestinal Tract, Via Natural or Artificial Opening Endoscopic (ICD-10-PCS; CPT 45378; principal; 2021-02-23 12:00)
DX: K57.31 Diverticulosis of large intestine without perforation or abscess with bleeding; I10 Essential (primary) hypertension; I27.20 Pulmonary hypertension, unspecified; N39.0 Urinary tract infection, site not specified; D64.9 Anemia, unspecified; E87.6 Hypokalemia; F25.9 Schizoaffective disorder, unspecified; Z20.822 Contact with and (suspected) exposure to COVID-19; Z79.899 Other long term (current) drug therapy
CPT/HCPCS: 43235; 45378; G0378; 36415; 74177; 80048; 80053; 81001; 82272; 83605; 84145; 85014; 85018; 85025; 85651; 86140; 86850; 87086; 87088; 87186; 93005; 96365; 96366; 96367; 99285; 99291; G0328; P9016; Q9967; U0003

== ENCOUNTER 2021-04-17 14:57 | Inpatient (IN) | payer MEDICARE, MEDICAID, SELFPAY ==
[2021-04-17] VITALS (7 sets, daily range): BP systolic 92–187; BP diastolic 62–96; PULSE 61–112; RESP 16–22; TEMP 36.4–37.1; O2SAT 96–98; BMI 29.5; BMI 36.0
--- NOTE | 2021-04-17 15:16 | CT_ITS ---
PROCEDURE INFORMATION: Exam: CT Abdomen And Pelvis With Contrast Exam date and time: 04/17/2021 3:16 PM Age: 70 years old Clinical indication: Other: Gi bleed, HX of diverticulitis; Abdominal pain; Generalized; Additional info: Gi bleeding, abdominal pain h/o diverticulitis TECHNIQUE: Imaging protocol: Computed tomography of the abdomen and pelvis with contrast. Radiation optimization: All CT scans at this facility use at least one of these dose optimization techniques: automated exposure control; mA and/or kV adjustment per patient size (includes targeted exams where dose is matched to clinical indication); or iterative reconstruction. Contrast material: ISOVUE; Contrast volume: 75 ml; Contrast route: IV; COMPARISON: CT ABDOMEN PELVIS W CON 02/21/2021 4:29 AM FINDINGS: Lungs: No acute findings in the visualized lower lungs. No consolidation. Liver: Slightly heterogeneous liver attenuation, likely underlying patchy fatty change. Tiny calcified granulomas. No suspicious mass. No hepatomegaly. Gallbladder and bile ducts: The gallbladder is unremarkable. No calcified stones or biliary dilatation. Pancreas: Fatty atrophic changes in the pancreas, likely age related change . No ductal dilatation. No mass. Spleen: No splenomegaly. Multiple calcified granulomas. Adrenal glands: The adrenal glands are normal. Kidneys and ureters: The kidneys are normal. The ureters are normal. Stomach and bowel: Extensive diverticulosis coli. There is prominent intraluminal density within the proximal transverse colon, at the level of the inferior right edge of liver, worrisome for possible bleeding diverticulum and extravasated IV contrast; no precontrast images were obtained for comparison. See axial series 3, images 57-66, coronal series 601 images 31-37, and sagittal series 602, images 26-33. This could be dense material of other etiology. The colon is distended with fluid and gas with multiple air-fluid levels. No definite focal findings of diverticulitis. No acute findings in the small bowel; no significantly dilated loops or mucosal thickening. Stomach is unremarkable. Appendix: A normal appendix is identified. Intraperitoneal space: There is no free intraperitoneal air. There is no significant free intraperitoneal fluid. Vasculature: There is no aortic aneurysm. The vasculature demonstrates scattered mild atherosclerotic calcification. Lymph nodes: No significantly enlarged lymph nodes by short axis criteria. No significantly enlarged lymph nodes by short axis criteria. Urinary bladder: The bladder is normal. Reproductive: Post hysterectomy. Unremarkable as visualized. Bones/joints: There are spinal degenerative changes, with multilevel disc narrrowing and spondylosis. Hypertrophied lumbar spinous processes with pseudoarthrosis. Bilateral hip arthritis. Prominent bilateral sacroiliitis. Soft tissues: There are no soft tissue masses or fluid collections. IMPRESSION: 1. Extensive diverticulosis coli. Findings are suspicious for active GI bleeding in the proximal transverse colon, possible bleeding diverticulum. Hyperdense intraluminal fluid is worrisome for extravasated IV contrast. However, no precontrast images are available for comparison, it is possible this is dense fluid of other etiology. 2. Prominent distended colon with air-fluid levels, which could be due to enterocolitis. No focal findings of acute diverticulitis. 3. Additional nonemergency and chronic findings as above.
[2021-04-17 15:20] LABS: Basophils # 0.1 K/mm3 (0-0.2); Basophils % 0.6 % (0.1-2.0); Eosinophils # 0.3 K/mm3 (0.0-0.4); Eosinophils % 2.9 % (0.1-12.0); Hematocrit 40.8 % (37.0-47.0); Lymphocytes # 3.6 K/mm3 (0.7-4.5); Mean Corpuscular HGB Conc 31.8 g/dL (31.8-35.4); Mean Corpuscular Hemoglobin 28.9 pg (27.0-31.2); Mean Corpuscular Volume 90.9 fl (81-99); Mean Platelet Volume 8.7 fl (7.4-10.4); Monocytes # 0.4 K/mm3 (0.1-1.0); Monocytes % 3.5 % (1.7-9.3); Neutrophils # 6.8 K/mm3 (1.8-7.8); Platelet Count 332 K/mm3 (142-424); Red Blood Count 4.49 M/mm3 (4.20-5.40); White Blood Count 11.1 K/mm3 (4.8-10.8)
[2021-04-17 15:25] LABS: Chloride 102 mmol/L (98-107); Sodium 142 mmol/L (136-145)
[2021-04-17 15:26] LABS: Potassium 3.9 mmoL/L (3.5-5.1)
[2021-04-17 15:28] LABS: Alanine Aminotransferase 16 U/L (12-78); Albumin Level 3.6 g/dl (3.5-5.0); Albumin/Globulin Ratio 0.9 (1.1-1.8); Alkaline Phosphatase 85 U/L (38-126); Anion Gap 12.9 mEq/L (5-15); Aspartate Amino Transferase 28 U/L (14-36); Blood Urea Nitrogen 7 mg/dl (7-17); Carbon Dioxide 31 mmol/L (22.0-30.0); Estimated Glomerular Filt Rate 99 ml/min (>60); GFR (African American) 120 ML/MIN (>60); Globulin 3.8 g/dL (1.3-3.2); Total Protein,Serum 7.4 g/dl (6.3-8.2)
[2021-04-17 15:29] LABS: Bilirubin,Total 0.1 mg/dl (0.2-1.3); Calcium 9.5 mg/dl (8.4-10.2); Glucose 127 mg/dl (74-100)
[2021-04-17 15:37] LABS: Coronavirus 19, PCR Not Detected (NotDetected); Influenza A, PCR Not Detected (NotDetected); Influenza B, PCR Not Detected (NotDetected)
--- NOTE | 2021-04-17 17:30 | PC.NURSE ---
PT INCONTINENT LAR[place] STOOL. AWARE.
--- NOTE | 2021-04-17 17:30 | PC.NURSE ---
Dr Domínguez spoke with Dr Martinez
--- NOTE | 2021-04-17 17:43 | PC.NURSE ---
REPORT CALLED TO FLOOR
--- NOTE | 2021-04-17 17:44 | PC.NURSE ---
unable to transfer orders, MD in chart @ this time. SRNA down to get another pt, will attempt again before transferring pt up to floor.
[2021-04-17 17:54] LABS: Hematocrit 37.7 % (37.0-47.0); Hemoglobin 11.8 g/dL (12.2-16.2); Lactic Acid 4.3 mmol/L (0.7-2.1)
[2021-04-17 18:22] LABS: Prothrombin Time 11.3 seconds (10.1-12.5)
--- NOTE | 2021-04-17 18:29 | PC.NURSE ---
NURSE ZEROED BED #3203 OUT BEFORE PATIENT WAS BROUGHT TO THE ROOM. WE TRANSFERRED PATIENT TO THE BED FROM ED STRETCHER AND NOW THE BED WILL NOT WEIGH AND PATIENT IS UNABLE TO STAND DO TO BEING BED BOUND
[2021-04-17 18:32] LABS: INR 0.95 (0.9-1.1)
--- NOTE | 2021-04-17 20:34 | HMH.EDGENADL ---
ED Disposition Clinical Impression: GI bleed Qualifiers: GI bleed type/associated pathology: melena Qualified Code(s): K92.1 - Melena Disposition: Admitted As Inpatient Condition on Discharge: Serious - Critical Care Critical Care Time: No Attestation: On 04/17/21, the high probability of a clinically significant, sudden or life threatening deterioration of the following system(s) required my full and direct attention, intervention and personal management. The time I documented below is in addition to time spent performing reported procedures but includes the following listed in this critical care notation. Medical Decision Making - Medical Records Medical records reviewed: Yes: I reviewed the patient's medical records. - Carlos Inquiry Pt receiving controlled substance: No Carlos was queried for this patient: No Vital Signs: 04/17/21 14:58 04/17/21 15:30 04/17/21 16:00 Temperature 98 F Temperature Source Oral Pulse Rate 105 H 105 H Pulse Rate [Radial] 102 H Respiratory Rate 20 20 Blood Pressure 132/78 92/64 L Blood Pressure [Right Arm] 137/84 Blood Pressure Mean Blood Pressure Mean [Right Arm] 101 Blood Pressure Source [Right Arm] Blood Pressure Position Sitting Sitting Blood Pressure Position [Right Arm] Sitting 02 Sat by Pulse Oximetry 98 98 98 Oxygen Delivery Method 04/17/21 17:10 04/17/21 18:33 Temperature 98.7 F Temperature Source Oral Pulse Rate 107 H Pulse Rate [Radial] 61 Respiratory Rate 22 16 Blood Pressure 92/62 L Blood Pressure [Right Arm] 187/96 H Blood Pressure Mean 72 Blood Pressure Mean [Right Arm] 126 Blood Pressure Source [Right Arm] Automatic Cuff Blood Pressure Position Blood Pressure Position [Right Arm] Supine 02 Sat by Pulse Oximetry 96 98 Oxygen Delivery Method Room Air - Lab Data Lab Results 04/17/21 15:00: WBC 11.1 H, RBC 4.49, Hgb 13.0, Hct 40.8, MCV 90.9, MCH 28.9, MCHC 31.8, RDW 13.0, Plt Count 332, MPV 8.7, Neut % (Auto) 61.0, Lymph % (Auto) 32.0, Leslie % (Auto) 3.5, Eos % (Auto) 2.9, Baso % (Auto) 0.6, Neut # (Auto) 6.8, Lymph # (Auto) 3.6, Leslie # (Auto) 0.4, Eos # (Auto) 0.3, Baso # (Auto) 0.1 04/17/21 15:00: Sodium 142, Potassium 3.9, Chloride 102, Carbon Dioxide 31 H, Anion Gap 12.9, BUN 7, Creatinine 0.60, Estimated GFR 99, Est GFR ( Amer) 120, Glucose 127 H, Calcium 9.5, Total Bilirubin 0.1 L, AST 28, ALT 16, Alkaline Phosphatase 85, Total Protein 7.4, Albumin 3.6, Globulin 3.8 H, Albumin/Globulin Ratio 0.9 L 04/17/21 15:00: PT 11.3, INR 0.95 04/17/21 15:30: SARS-CoV-2 (PCR) Not detected, Influenza A Untype (PCR) Not detected, Influenza Type B (PCR) Not detected 04/17/21 17:34: Lactate 4.3 H 04/17/21 17:34: Hgb 11.8 L, Hct 37.7 Result diagrams: 04/17/21 17:34 04/17/21 15:00 Orders (Tests/Meds): ED MEDICATIONS Generic Name Dose Route Start Last Admin Trade Name Freq PRN Reason Stop Dose Admin Acetaminophen 500 mg 04/17/21 17:51 Acetaminophen 500mg Tab PO 05/17/21 17:50 Q4HP PRN pain/fever Atorvastatin Calcium 10 mg 04/17/21 21:00 Atorvastatin 10mg Tablet PO 05/17/21 20:59 HS [facility] Fluticasone Propionate 1 spr 04/18/21 09:00 Fluticasone Prop 50mcg Nasal [place] 16gm DAILY ANUPAMA 05/18/21 08:59 Lactated Ringer's 1,000 mls @ 150 mls/hr 04/17/21 17:51 Lactated Ringer's 1000 Ml Bag IV 05/17/21 15:14 .[id number] ANUPAMA Non-Formulary Medication 1 each 04/18/21 09:00 Multivitamin,Ther And Minerals [Vitamin And Minerals] PO 05/18/21 08:59 DAILY ANUPAMA Non-Formulary Medication 20 mg 04/18/21 09:00 Omeprazole PO 05/18/21 08:59 DAILY ANUPAMA Non-Formulary Medication 100 mg 04/17/21 21:00 Trazodone Hcl PO 05/17/21 20:59 HS ANUPAMA Ondansetron HCl 4 mg 04/17/21 17:51 Ondansetron 4mg/2ml Vial IV 05/17/21 17:50 Q8HP PRN Nausea Pantoprazole Sodium 40 mg 04/18/21 09:00 Pantoprazole 40mg Tablet PO 05/18/21 08:59 DAILY ANUPAMA
[2021-04-17 21:37] LABS: Reflex Lactic Add Lactic Reflex
[2021-04-17 21:59] LABS: Occult Blood,Stool Positive (Negative)
--- NOTE | 2021-04-18 03:52 | PC.NURSE ---
no acute changes overnight. No c/o pain this shift. pt has been turned q2h. pt has had several dark tarry BMs this shift. Lungs CTA, on room air. Pt able to answer yes and no to basic questions and follow commands. IV patent, LR @ 150. VSS, call light in reach, no concerns at this time.
[2021-04-18 04:00] VITALS: BP 112/62; PULSE 100; RESP 16; TEMP 36.8; O2SAT 98
--- NOTE | 2021-04-18 05:13 | HMH.HP ---
*Admission Date: 04/17/21 *Chief complaint: gi bleed *History of present illness: this patient was seen in the ed - PER [facility] WITH RECTAL BLEEDING STARTING TODAY. PT ADMITS INCONTINENT OF STOOL LARGE [place] COLOR STOOL NOTED. PT C/O NAUSEA AND ABD PAIN. Female with past medical history of GI bleeding, schizophrenia who stays at a [facility] presenting to the emergency department with a bloody bowel movement. Patient had one large bloody bowel movement at the [facility], she is denying any abdominal pain, shortness of breath, dysuria. [facility] History I have reviewed the patient's past medical history: Yes Medical History: Reports:: Anxiety, Arrhythmia, Congestive Heart Failure, Depression, Gastrointestinal Bleed, Hyperlipidemia, Hypertension, Renal Insufficiency, Seizures Denies:: Cancer, Diabetes Mellitus Type 1, Diabetes Mellitus Type 2, MRSA *Have you ever received a pneumonia vaccine?: Yes *Have you received a flu vaccine this season?: Yes Other Medical History: Reports: Anemia, Arthritis, Other Laterality Cases: Right: Mastectomy Other Surgeries: Yes: No Previous Surgery, Cancer Surgery, Colonoscopy, EGD, Hysterectomy-Partial, Tubal Ligation, Other Amputation: No Fractures: Yes (Left lower leg and foot) - *Social History Smoking Status: Former smoker Tobacco Type: cigarettes # Packs/Day (cigarettes): 0 #Yrs smoked (if former smoker): 0 Alcohol Intake: never Alcohol Intake Frequency:: other Substance Use Type: denies use *Occupational Status:: disabled Housing: [facility]ci Household Members: other *Travel in the last 8 weeks: None - Psychiatric History Pschychiatric History:: Reports:: Anxiety, Depression, Schizophrenia Family Hx:: Unable to obtain Review of Systems - Review of Systems Review of systems:: pertinent systems reviewed and negative unless documented below - Constitutional Denies fever(s) - Eyes Denies change in vision - ENT Denies dizziness - *Cardiovascular Denies chest pain - *Respiratory Denies cough - *Gastrointestinal Reports bright, red blood in stools, Denies abdominal pain - *Genitourinary Denies blood in urine - *Musculoskeletal Denies joint pain - Integumentary/Breasts Denies rash - *Neurologic Denies headache(s), Denies seizure-like activity - Psychiatric Denies thoughts of hurting/killing yourself Meds Home Medications Medication Instructions Recorded Confirmed Type atorvastatin 10 mg tablet 10 mg PO HS 30 Days #30 11/13/17 04/17/21 History Cetirizine HCl 10 mg PO HS 06/18/18 04/17/21 History Lactulose [Constulose] 30 ml PO DAILYP PRN 08/09/18 04/17/21 History fluticasone propionate 50 1 spray NOSTRIL-B DAILY 02/28/19 04/17/21 History mcg/actuation nasal spray,suspension Bisoprolol Fumarate [Bisoprolol 5 mg PO HS 02/28/20 04/17/21 History 5mg Tablet] Furosemide [Furosemide 40MG tAB*] 40 mg PO DAILY 02/28/20 04/17/21 History Mag Carb/Aluminum Hydrox/Algin 30 ml PO Q4HP PRN 02/28/20 04/17/21 History [Acid Gone Antacid Liquid] Multivitamin,Ther and Minerals 1 each PO DAILY 02/28/20 04/17/21 History [Vitamin and Minerals] Acetaminophen 500 mg PO Q6HP PRN 02/29/20 04/18/21 History omeprazole 20 mg tablet,delayed 20 mg PO HS 03/30/20 04/17/21 History release ferrous sulfate 325 mg (65 mg 2 tab PO DAILY tab 10/19/20 04/17/21 History iron) tablet metformin 500 mg tablet 500 mg PO BIDWMEAL 10/19/20 04/18/21 History Sertraline HCl 50 mg PO DAILY 02/21/21 04/17/21 History Trazodone HCl 100 mg PO HS 02/21/21 04/17/21 History paliperidone 3 mg tablet,extended 3 mg PO DAILY tab 04/05/21 04/17/21 History release 24 hr Propranolol HCl [Inderal LA] 60 mg PO DAILY 04/17/21 04/17/21 History ondansetron HCL [Ondansetron 4mg 4 mg PO Q8HP PRN 04/17/21 04/18/21 History tab*] Allergies Allergy/AdvReac Type Severity Reaction Status Date / Time No Known Allergies Allergy Verified 04/05/21 09:51 Exam Vital signs and Labs for Last 24 Ho
[2021-04-18 06:35] LABS: Basophils % 0.3 % (0.1-2.0); Eosinophils # 0.3 K/mm3 (0.0-0.4); Eosinophils % 2.1 % (0.1-12.0); Lymphocytes # 3.3 K/mm3 (0.7-4.5); Lymphocytes % 27.2 % (10-50); Mean Corpuscular HGB Conc 31.7 g/dL (31.8-35.4); Mean Corpuscular Hemoglobin 29.1 pg (27.0-31.2); Mean Corpuscular Volume 91.8 fl (81-99); Mean Platelet Volume 11.3 fl (7.4-10.4); Monocytes # 0.6 K/mm3 (0.1-1.0); Monocytes % 4.6 % (1.7-9.3); Neutrophils # 7.9 K/mm3 (1.8-7.8); Neutrophils % 65.7 % (37.0-80.0); Platelet Count 101 K/mm3 (142-424); Red Blood Count 3.14 M/mm3 (4.20-5.40); Red Cell Distribution Width 13.3 % (11.5-17.5)
[2021-04-18 06:36] LABS: Hematocrit 28.8 % (37.0-47.0); Hemoglobin 9.1 g/dL (12.2-16.2)
[2021-04-18 06:46] LABS: Alanine Aminotransferase 13 U/L (12-78); Albumin Level 2.8 g/dl (3.5-5.0); Alkaline Phosphatase 53 U/L (38-126); Anion Gap 12.3 mEq/L (5-15); Aspartate Amino Transferase 21 U/L (14-36); Bilirubin,Total < 0.1 mg/dl (0.2-1.3); Blood Urea Nitrogen 14 mg/dl (7-17); Calcium 8.7 mg/dl (8.4-10.2); Carbon Dioxide 25 mmol/L (22.0-30.0); Chloride 104 mmol/L (98-107); Creatinine Clearance Estimated 87 mL/min (50-200); Estimated Glomerular Filt Rate 99 ml/min (>60); GFR (African American) 120 ML/MIN (>60); Globulin 2.9 g/dL (1.3-3.2); Glucose 122 mg/dl (74-100); Magnesium 1.4 mg/dl (1.6-2.3); Potassium 4.3 mmoL/L (3.5-5.1); Sodium 137 mmol/L (136-145); Total Protein,Serum 5.7 g/dl (6.3-8.2)
--- NOTE | 2021-04-18 08:05 | HMH.PHAVTE ---
[facility] Pharmacy VTE Monitoring - Patient Demographics Admission date: 04/18/21 Report Date: 04/18/21 Time: 08:05 Allergies/Adverse Reactions: Patient Allergies No Known Allergies Allergy (Verified 04/05/21 09:51) Height: 1.7 m Weight: 104.326 kg Patient Problems: Current Active Problems GI bleed (Acute) - VTE Risk Labs: VTE Related Lab Results Hgb 9.1 g/dL (12.2-16.2) L D 04/18/21 06:29 Hct 28.8 % (37.0-47.0) L 04/18/21 06:29 Plt Count 101 K/mm3 (142-424) L D 04/18/21 06:29 PT 11.3 seconds (10.1-12.5) 04/17/21 15:00 INR 0.95 (0.9-1.1) 04/17/21 15:00 BUN 14 mg/dl (7-17) D 04/18/21 06:29 Creatinine 0.60 mg/dl (0.52-1.04) 04/18/21 06:29 Estimated Creat Clear 87 mL/min (50-200) 04/18/21 06:29 Was VTE Risk Assessment Performed: Yes VTE Score: 4 VTE Risk Level: Low Risk Clinical Trial Participant: No - Prophylaxis VTE Prophylaxis Ordered?: Yes Types of VTE Prophylaxis: TEDS Knee High Location of Applied Device: Bilateral Lower Extremeties
--- NOTE | 2021-04-18 09:04 | HMH.GSCON ---
*Admission Date: 04/18/21 *Reason for consult:: GI bleed *History of present illness: Patient is a 70-year-old female who is a resident of [facility] care facility with history of reported cognitive impairment and schizophrenia. She has prior history of apparent diverticular bleeding with admission in February 2020 and in February 2021. During the admission in February 2020 she had passage of dark bloody stool. Upper endoscopy during that admission was unremarkable. Outpatient colonoscopy on 05/11/2020 revealed extensive pandiverticulosis most notable in the distal transverse and left colon. She was admitted again on 02/21/2021 with similar symptoms of passage of blood per rectum. During that admission she showed decreasing hemoglobin and hematocrit. Once again upper endoscopy was unremarkable. Colonoscopy was performed on 02/23/2021 which once again revealed pandiverticulosis with very severe left-sided diverticular disease with no evidence of any active bleeding consistent with resolved diverticular bleed. During that admission she had been transfused 3 units of packed red blood cells and was discharged with a hemoglobin of 9.7. Patient was brought to the emergency department yesterday evening with a bloody bowel movement. She had additional bloody bowel movement in the emergency department and she was admitted for inpatient management. Upon presentation her hemoglobin was 13. Subsequent hemoglobin has been 11.8 and 9.1. She underwent CT scan in the emergency department and this revealed extensive diverticulosis with hyperdense intraluminal fluid in the proximal transverse colon which was felt to be possible extravasated IV contrast versus dense fluid of other etiology. Review of Systems - Review of Systems Review of systems:: unable to obtain [facility] History I have reviewed the patient's past medical history: Yes Medical History: Reports:: Anxiety, Arrhythmia, Congestive Heart Failure, Depression, Gastrointestinal Bleed, Hyperlipidemia, Hypertension, Renal Insufficiency, Seizures Denies:: Cancer, Diabetes Mellitus Type 1, Diabetes Mellitus Type 2, MRSA *Have you ever received a pneumonia vaccine?: Yes *Have you received a flu vaccine this season?: Yes Other Medical History: Reports: Anemia, Arthritis, Other Laterality Cases: Right: Mastectomy Other Surgeries: Yes: No Previous Surgery, Cancer Surgery, Colonoscopy, EGD, Hysterectomy-Partial, Tubal Ligation, Other Amputation: No Fractures: Yes (Left lower leg and foot) - *Social History Smoking Status: Former smoker Tobacco Type: cigarettes # Packs/Day (cigarettes): 0 #Yrs smoked (if former smoker): 0 Alcohol Intake: never Alcohol Intake Frequency:: other Substance Use Type: denies use *Occupational Status:: disabled Housing: halfway Household Members: other *Travel in the last 8 weeks: None - Psychiatric History Pschychiatric History:: Reports:: Anxiety, Depression, Schizophrenia Family Hx:: Unable to obtain Meds Home Medications Medication Instructions Recorded Confirmed Type atorvastatin 10 mg tablet 10 mg PO HS 30 Days #30 11/13/17 04/17/21 History Cetirizine HCl 10 mg PO HS 06/18/18 04/17/21 History Lactulose [Constulose] 30 ml PO DAILYP PRN 08/09/18 04/17/21 History fluticasone propionate 50 1 spray NOSTRIL-B DAILY 02/28/19 04/17/21 History mcg/actuation nasal spray,suspension Bisoprolol Fumarate [Bisoprolol 5 mg PO HS 02/28/20 04/17/21 History 5mg Tablet] Furosemide [Furosemide 40MG tAB*] 40 mg PO DAILY 02/28/20 04/17/21 History Mag Carb/Aluminum Hydrox/Algin 30 ml PO Q4HP PRN 02/28/20 04/17/21 History [Acid Gone Antacid Liquid] Multivitamin,Ther and Minerals 1 each PO DAILY 02/28/20 04/17/21 History [Vitamin and Minerals] Acetaminophen 500 mg PO Q4HP PRN 02/29/20 04/17/21 History omeprazole 20 mg tablet,delayed 20 mg PO HS 03/30/20 04/17/21 History release ferrous sulfate 325 mg (65 mg 2 tab PO DAILY tab 10/19/20 04/17/21 History iron) tablet metformi
[2021-04-18 09:15] VITALS: BP 115/60; PULSE 101; RESP 17; TEMP 37.3; O2SAT 96
[2021-04-18 14:06] VITALS: BMI 35.9
--- NOTE | 2021-04-18 14:45 | PC.NURSE ---
Attempted to call Neelam Pope, pts POA, at this time to complete consent for colonoscopy. No answer, will try again.
--- NOTE | 2021-04-18 15:24 | PC.NURSE ---
[id number] Telephone consent received from Neelam Pope for colonoscopy. Witnessed by Jenni Busby RN.
[2021-04-18 15:37] VITALS: BP 107/54; PULSE 98; RESP 16; TEMP 37; O2SAT 99
--- NOTE | 2021-04-18 16:13 | PC.NURSE ---
1610 RN reassessment completed at this time. Pt is alert to her name and year of . Pt answers yes/no questions and follows simple commands. Pt was witnessed speaking in conversation style with her daughter on the phone. Pt has required Q2H repositioning this shift and was unable to feed herself meals. Pt is incontinent and requires x1 assist with changes. Pt had one large, loose, dark red stool this shift. Abd soft and nontender with BS hyperactive. Pt is tolerating clear liquid diet well. Lung sounds CTA with no s/s resp distress. 20 g patent to R AC and infusing without difficulty. VSS. No significant changes from AM shift. Will continue to monitor.
[2021-04-18 20:00] VITALS: BP 123/62; PULSE 104; RESP 18; TEMP 36.3; O2SAT 97
[2021-04-19] VITALS (38 sets, daily range): BP systolic 87–140; BP diastolic 43–83; PULSE 69–116; RESP 16–24; TEMP 36.7–37.6; O2SAT 90–100; BMI 34.5
--- NOTE | 2021-04-19 02:32 | PC.NURSE ---
Patient is alert to self. Patient is a Q2H turn, she is incontinent of bowel and bladder, bloody stools still noted. Patient has not had any acute changes. VSS, call light within reach, will continue to monitor.
[2021-04-19 06:54] LABS: Basophils % 0.2 % (0.1-2.0); Eosinophils # 0.3 K/mm3 (0.0-0.4); Eosinophils % 3.4 % (0.1-12.0); Hematocrit 23.1 % (37.0-47.0); Lymphocytes # 2.8 K/mm3 (0.7-4.5); Lymphocytes % 33.7 % (10-50); Mean Corpuscular HGB Conc 31.8 g/dL (31.8-35.4); Mean Corpuscular Hemoglobin 29.5 pg (27.0-31.2); Mean Corpuscular Volume 92.6 fl (81-99); Mean Platelet Volume 8.5 fl (7.4-10.4); Monocytes # 0.4 K/mm3 (0.1-1.0); Neutrophils # 4.8 K/mm3 (1.8-7.8); Neutrophils % 57.8 % (37.0-80.0); Platelet Count 228 K/mm3 (142-424); Red Cell Distribution Width 13.4 % (11.5-17.5); White Blood Count 8.3 K/mm3 (4.8-10.8)
[2021-04-19 06:57] LABS: Hemoglobin 7.4 g/dL (12.2-16.2)
[2021-04-19 07:01] LABS: Anion Gap 8.2 mEq/L (5-15); Blood Urea Nitrogen 4 mg/dl (7-17); Calcium 8.2 mg/dl (8.4-10.2); Carbon Dioxide 31 mmol/L (22.0-30.0); Chloride 105 mmol/L (98-107); Creatinine Clearance Estimated 84 mL/min (50-200); Estimated Glomerular Filt Rate 99 ml/min (>60); GFR (African American) 120 ML/MIN (>60); Glucose 97 mg/dl (74-100); Potassium 3.2 mmoL/L (3.5-5.1); Sodium 141 mmol/L (136-145)
--- NOTE | 2021-04-19 08:50 | HMH.ANESCL ---
[facility] Anesthesia Checklist - Patient Identification Patient Identification: Arm Band - Structural Data Admitted From: Inpatient Planned Operative Procedure/s: Colonoscopy Consent for Planned Operative Procedure(s) Verified: Yes - NPO Status Verified Time NPO: 00:00 - Additional verifications Anesthesia Reactions: No - Airway Assessment C-Spine Mobility Assessed: Yes TMJ Mobility Assessed: Yes Dentition: Edentulous - Neurological Assessment Level of Consciousness: Awake Hx Seizures: Yes Numbness or tingling in extremities: No - Anesthesia Plan Anesthesia Risk discussed: Yes Anesthesia Plan: Verified ASA Class: III Anesthesia Type: MAC [facility] History I have reviewed the patient's past medical history: Yes Medical History: Reports:: Anxiety, Arrhythmia, Congestive Heart Failure, Depression, Gastrointestinal Bleed, Hyperlipidemia, Hypertension, Renal Insufficiency, Seizures Denies:: Cancer, Diabetes Mellitus Type 1, Diabetes Mellitus Type 2, MRSA *Have you ever received a pneumonia vaccine?: Yes *Have you received a flu vaccine this season?: Yes Other Medical History: Reports: Anemia, Arthritis, Other Anesthesia experience/problems:: None Laterality Cases: Right: Mastectomy Other Surgeries: Yes: No Previous Surgery, Cancer Surgery, Colonoscopy, EGD, Hysterectomy-Partial, Tubal Ligation, Other Amputation: No Fractures: Yes (Left lower leg and foot) - *Social History Smoking Status: Former smoker Tobacco Type: cigarettes # Packs/Day (cigarettes): 0 #Yrs smoked (if former smoker): 0 Alcohol Intake: never Alcohol Intake Frequency:: other Substance Use Type: denies use *Occupational Status:: disabled Housing: [facility] Household Members: other *Travel in the last 8 weeks: None - Psychiatric History Pschychiatric History:: Reports:: Anxiety, Depression, Schizophrenia Family Hx:: Unable to obtain
--- NOTE | 2021-04-19 09:20 | HMH.ACPN2 ---
Internal Medicine - PN: Subj *Date: 04/19/21 *Time: 11:34 Interval history: 70-year-old female patient lying in bed resting quietly in no apparent distress. General surgery has planned for colonoscopy this morning, hemoglobin 7.4 we will transfuse 2 units packed red blood cells. Exam Vital signs and Labs for Last 24 Hours: Temp Pulse Resp BP Pulse Ox 98.6 F 100 H 18 114/55 L 99 04/19/21 07:29 04/19/21 07:04/19/21 07:04/19/21 07:04/19/21 07:29 Laboratory Results - last 24 hr 04/19/21 05:50: WBC 8.3 D, RBC 2.50 L, Hgb 7.4 L D, Hct 23.1 L, MCV 92.6, MCH 29.5, MCHC 31.8, RDW 13.4, Plt Count 228 D, MPV 8.5, Neut % (Auto) 57.8, Lymph % (Auto) 33.7, [place] % (Auto) 5.0, Eos % (Auto) 3.4, Baso % (Auto) 0.2, Neut # (Auto) 4.8, Lymph # (Auto) 2.8, [place] # (Auto) 0.4, Eos # (Auto) 0.3, Baso # (Auto) 0.0 04/19/21 05:50: Sodium 141, Potassium 3.2 L D, Chloride 105, Carbon Dioxide 31 H, Anion Gap 8.2, BUN 4 L D, Creatinine 0.60, Estimated Creat Clear 84, Estimated GFR 99, Est GFR ( Amer) 120, Glucose 97 D, Calcium 8.2 L I & O for Last 24 hours: Intake & Output 04/16/21 04/17/21 04/18/21 04/19/21 23:59 23:59 23:59 23:59 Intake Total 300 / 300 420 / 420 4879 / 4879 Output Total 0 / 0 Balance 300 / 300 420 / 420 4879 / 4879 Weight 230 lb 229 lb 4.492 oz 220 lb - Constitutional no acute distress, obese - *Routine HEENT Exam Head: Present: normocephalic Eye: Present: EOMI ENT: Present: mucous membranes moist - *Routine Neck Exam Present: trachea midline. Absent: tracheal deviation - *Routine Respiratory Exam Present: decreased breath sounds. Absent: accessory muscle use - *Routine Cardiovascular Exam Present: RRR, murmur - *Routine Abdominal Exam Present: soft, normoactive bowel sounds, tenderness. Absent: firm - *Routine Extremities Exam Present: edema, full ROM, pulses intact. Absent: cyanosis, calf tenderness - *Routine Skin Exam Present: intact, dry, warm. Absent: erythema - *Routine Neurological Exam Present: alert, altered mental status. Absent: motor deficit - Routine Psychiatric Exam Present: unable to assess Assessment and Plan (1) GI bleed Status: Acute Qualifiers: GI bleed type/associated pathology: melena Qualified Code(s): K92.1 - Melena Category: Medical Code(s): K92.2 - Gastrointestinal hemorrhage, unspecified (2) Diverticulosis of colon with hemorrhage Status: Acute Category: Medical Code(s): K57.31 - Diverticulosis of large intestine without perforation or abscess with bleeding (3) Obesity (BMI 30-39.9) Status: Chronic Category: Medical Code(s): E66.9 - Obesity, unspecified (4) Schizoaffective disorder Status: Chronic Qualifiers: Schizoaffective disorder type: unspecified Qualified Code(s): F25.9 - Schizoaffective disorder, unspecified Category: Medical Code(s): F25.9 - Schizoaffective disorder, unspecified (5) Lower GI bleeding Status: Acute Category: Medical Code(s): K92.2 - Gastrointestinal hemorrhage, unspecified (6) Anemia Status: Acute Qualifiers: Anemia type: other cause Other causes of anemia: other cause, not classified Qualified Code(s): D64.89 - Other specified anemias Category: Medical Code(s): D64.9 - Anemia, unspecified - Assessment and plan all Dx Assessment and Plan for all problems:: Rounded with Dr. Rizo, all orders per Dr. Rizo: 1. Colonoscopy today per general surgery 2. Transfuse 2 units packed red blood cells
--- NOTE | 2021-04-19 09:38 | HMH.SCOPE ---
- Procedure: Date: 04/19/21 Patient Date of :: 1950 Procedure Performed:: Total colonoscopy Indications:: Patient is a 70-year-old female who is a resident of [facility] care facility with history of reported cognitive impairment and schizophrenia. She has prior history of apparent diverticular bleeding with admission in February 2020 and in February 2021. During the admission in February 2020 she had passage of dark bloody stool. Upper endoscopy during that admission was unremarkable. Outpatient colonoscopy on 05/11/2020 revealed extensive pandiverticulosis most notable in the distal transverse and left colon. She was admitted again on 02/21/2021 with similar symptoms of passage of blood per rectum. During that admission she showed decreasing hemoglobin and hematocrit. Once again upper endoscopy was unremarkable. Colonoscopy was performed on 02/23/2021 which once again revealed pandiverticulosis with very severe left-sided diverticular disease with no evidence of any active bleeding consistent with resolved diverticular bleed. During that admission she had been transfused 3 units of packed red blood cells and was discharged with a hemoglobin of 9.7. Patient was brought to the emergency department yesterday evening with a bloody bowel movement. She had additional bloody bowel movement in the emergency department and she was admitted for inpatient management. Upon presentation her hemoglobin was 13. Subsequent hemoglobin has been 11.8 and 9.1. She underwent CT scan in the emergency department and this revealed extensive diverticulosis with hyperdense intraluminal fluid in the proximal transverse colon which was felt to be possible extravasated IV contrast versus dense fluid of other etiology. On 04/19/21 hemoglobin had decreased to 7.4. Given her prior history of apparent diverticular bleeds with previous normal upper endoscopies this was felt to be likely the etiology once again. Continue to monitor for clinical bleeding and hemoglobin/hematocrit stability. Given the finding of potential extravasation of contrast in the proximal transverse colon and decreasing hemoglobin plan was for bowel prep with colonoscopy Performing Provider:: Bill Martinez MD Referring Provider:: Sandeep Rizo MD Sedation:: MAC sedation Procedure:: Patient was taken to endoscopy procedure room. She was positioned in lateral decubitus position. Adequate intravenous sedation was achieved. Variable stiffness Olympus colonoscope was inserted via the anus. It was advanced to the cecum with minimal difficulty. Colonic preparation was fair but adequate visualization was achieved with thorough irrigation and suctioning. She had significant appreciable arreaga diverticulosis. As the colonoscope was withdrawn through the colon inspection was carried out. Diverticuli were irrigated as needed. He had severe diverticulosis of the left colon. There was no evidence of any active bleeding or old blood within the colon. Colonoscope was withdrawn. Findings:: Significant appreciable pandiverticulosis Severe left-sided diverticuli Evidence of any active bleeding or old blood Fair Colonic preparation Recommendations:: Likely resolved diverticular bleed once again. Exact site within the colon Unclear as she has pandiverticulosis. Transfuse if needed with hemoglobin of 7.4 and monitor for response and stability. Complications:: None immediately apparent Estimated blood obtained (mL): 0
--- NOTE | 2021-04-19 09:51 | SW/DCPLANNER ---
Addendum entered by Maricruz Mckeon 04/20/21 09:52: I have informed Lorena with [facility] that this patient will return today. Lorena has stated that patient does NOT need an additional COVID swab prior to returning. Original Note: This patient currently resides at [facility]. I spoke with Lorena from [facility] whom confirmed that patient is [facility] level of care. I will continue to follow up with Lorena until patient is medically stable for discharge.
--- NOTE | 2021-04-19 18:52 | PC.NURSE ---
DR. JEAN-BAPTISTE NOTIFIED AT THIS TIME OF ELEVATED TEMPERATURE OF PT, 98.2 PRE-BLOOD, 99.4 AT START, 99.6 AFTER 5 MINUTES. CONTINUE TRANSFUSION AT THIS TIME, MEDICATE WITH TYLENOL AT THIS TIME PER EMAR.
[2021-04-19 22:50] LABS: Hematocrit 27.7 % (37.0-47.0)
--- NOTE | 2021-04-20 03:02 | PC.NURSE ---
Pt could state Name, BD, and place this shift. Pt denies any pain. Pt had a bed bath and tolerated well. She is incontinent of bowel and bladder. Patient did not have any bloody stools this shift. No acute changes. VSS, call light within reach, will continue to monitor.
[2021-04-20 04:00] VITALS: BP 135/83; PULSE 91; RESP 16; TEMP 37; O2SAT 96
[2021-04-20 06:26] LABS: Basophils # 0.1 K/mm3 (0-0.2); Basophils % 0.6 % (0.1-2.0); Eosinophils # 0.2 K/mm3 (0.0-0.4); Eosinophils % 2.7 % (0.1-12.0); Hematocrit 28.1 % (37.0-47.0); Hemoglobin 9.2 g/dL (12.2-16.2); Lymphocytes # 2.2 K/mm3 (0.7-4.5); Lymphocytes % 24.8 % (10-50); Mean Corpuscular HGB Conc 32.6 g/dL (31.8-35.4); Mean Corpuscular Volume 92.1 fl (81-99); Mean Platelet Volume 8.6 fl (7.4-10.4); Monocytes # 0.3 K/mm3 (0.1-1.0); Monocytes % 3.6 % (1.7-9.3); Neutrophils % 68.3 % (37.0-80.0); Platelet Count 229 K/mm3 (142-424); Red Blood Count 3.05 M/mm3 (4.20-5.40); White Blood Count 8.8 K/mm3 (4.8-10.8)
--- NOTE | 2021-04-20 06:36 | HMH.GSPN ---
Subjective Narrative: Patient received 2 units packed red blood cells yesterday for hemoglobin of 7.4 with posttransfusion hemoglobin of 9.0. Hemoglobin 9.2 this morning. On a low residue diet. Progress Note: A&P (1) GI bleed Status: Acute (2) Diverticulosis of colon with hemorrhage Status: Acute (3) Obesity (BMI 30-39.9) Status: Chronic (4) Schizoaffective disorder Status: Chronic (5) Lower GI bleeding Status: Acute (6) Anemia Status: Acute Assessment and Plan for All Diagnoses:: Presumed resolved diverticular bleed. Appropriate response to transfusion. Exam Vital signs and Labs for Last 24 Hours: Temp Pulse Resp BP Pulse Ox 98.6 F 91 H 16 135/83 96 04/20/21 04:00 04/20/21 04:00 04/20/21 04:00 04/20/21 04:00 04/20/21 04:00 Laboratory Results - last 24 hr 04/19/21 05:50: WBC 8.3 D, RBC 2.50 L, Hgb 7.4 L D, Hct 23.1 L, MCV 92.6, MCH 29.5, MCHC 31.8, RDW 13.4, Plt Count 228 D, MPV 8.5, Neut % (Auto) 57.8, Lymph % (Auto) 33.7, [place] % (Auto) 5.0, Eos % (Auto) 3.4, Baso % (Auto) 0.2, Neut # (Auto) 4.8, Lymph # (Auto) 2.8, [place] # (Auto) 0.4, Eos # (Auto) 0.3, Baso # (Auto) 0.0 04/19/21 05:50: Sodium 141, Potassium 3.2 L D, Chloride 105, Carbon Dioxide 31 H, Anion Gap 8.2, BUN 4 L D, Creatinine 0.60, Estimated Creat Clear 84, Estimated GFR 99, Est GFR ( Amer) 120, Glucose 97 D, Calcium 8.2 L 04/19/21 10:30: Blood Type A Positive, Antibody Screen Negative, Crossmatch (AHG) See Detail 04/19/21 22:45: Hgb 9.0 L D, Hct 27.7 L 04/20/21 06:04: WBC 8.8, RBC 3.05 L, Hgb 9.2 L, Hct 28.1 L, MCV 92.1, MCH 30.0, MCHC 32.6, RDW 14.0, Plt Count 229, MPV 8.6, Neut % (Auto) 68.3, Lymph % (Auto) 24.8, [place] % (Auto) 3.6, Eos % (Auto) 2.7, Baso % (Auto) 0.6, Neut # (Auto) 6.0, Lymph # (Auto) 2.2, [place] # (Auto) 0.3, Eos # (Auto) 0.2, Baso # (Auto) 0.1 I & O for Last 24 hours: Intake & Output 04/17/21 04/18/21 04/19/21 04/20/21 11:59 11:59 11:59 11:59 Intake Total 300 / 300 5299 / 5299 2310 / 2310 Output Total 0 / 0 Balance 300 / 300 5299 / 5299 2310 / 2310 Weight 230 lb 220 lb - Constitutional no acute distress
[2021-04-20 06:52] LABS: Anion Gap 8.5 mEq/L (5-15); Blood Urea Nitrogen 3 mg/dl (7-17); Calcium 8.6 mg/dl (8.4-10.2); Carbon Dioxide 29 mmol/L (22.0-30.0); Chloride 108 mmol/L (98-107); Creatinine Clearance Estimated 84 mL/min (50-200); Estimated Glomerular Filt Rate 99 ml/min (>60); GFR (African American) 120 ML/MIN (>60); Glucose 109 mg/dl (74-100); Potassium 3.5 mmoL/L (3.5-5.1); Sodium 142 mmol/L (136-145)
[2021-04-20 08:00] VITALS: BP 110/62; PULSE 98; RESP 20; TEMP 36.8; O2SAT 97
--- NOTE | 2021-04-20 09:20 | HMH.DCSUM ---
General - General Admission date:: 04/17/21 Discharge date: 04/20/21 HPI HPI: this patient was seen in the ed - PER [facility]QUAD WITH RECTAL BLEEDING STARTING TODAY. PT ADMITS INCONTINENT OF STOOL LARGE [place] COLOR STOOL NOTED. PT C/O NAUSEA AND ABD PAIN. Female with past medical history of GI bleeding, schizophrenia who stays at a longterm presenting to the emergency department with a bloody bowel movement. Patient had one large bloody bowel movement at the longterm, she is denying any abdominal pain, shortness of breath, dysuria. Hospital Course Hospital Course: Laboratory Tests 04/17/21 04/17/21 04/17/21 15:00 15:00 15:00 WBC 11.1 H RBC 4.49 Hgb 13.0 Hct 40.8 MCV 90.9 MCH 28.9 MCHC 31.8 RDW 13.0 Plt Count 332 MPV 8.7 Neut % (Auto) 61.0 Lymph % (Auto) 32.0 Door % (Auto) 3.5 Eos % (Auto) 2.9 Baso % (Auto) 0.6 Neut # (Auto) 6.8 Lymph # (Auto) 3.6 [place] # (Auto) 0.4 Eos # (Auto) 0.3 Baso # (Auto) 0.1 PT 11.3 INR 0.95 Sodium 142 Potassium 3.9 Chloride 102 Carbon Dioxide 31 H Anion Gap 12.9 BUN 7 Creatinine 0.60 Estimated Creat Clear Estimated GFR 99 Est GFR ( Amer) 120 Glucose 127 H Lactate Calcium 9.5 Magnesium Total Bilirubin 0.1 L AST 28 ALT 16 Alkaline Phosphatase 85 Total Protein 7.4 Albumin 3.6 Globulin 3.8 H Albumin/Globulin Ratio 0.9 L Stool Occult Blood SARS-CoV-2 (PCR) Influenza A Untype (PCR) Influenza Type B (PCR) Blood Type Antibody Screen Crossmatch ([facility]) 04/17/21 04/17/21 04/17/21 15:08 15:30 17:34 WBC RBC Hgb Hct MCV MCH MCHC RDW Plt Count MPV Neut % (Auto) Lymph % (Auto) [place] % (Auto) Eos % (Auto) Baso % (Auto) Neut # (Auto) Lymph # (Auto) [place] # (Auto) Eos # (Auto) Baso # (Auto) PT INR Sodium Potassium Chloride Carbon Dioxide Anion Gap BUN Creatinine Estimated Creat Clear Estimated GFR Est GFR ( Amer) Glucose Lactate 4.3 H Calcium Magnesium Total Bilirubin AST ALT Alkaline Phosphatase Total Protein Albumin Globulin Albumin/Globulin Ratio Stool Occult Blood Positive A SARS-CoV-2 (PCR) Not detected Influenza A Untype (PCR) Not detected Influenza Type B (PCR) Not detected Blood Type Antibody Screen Crossmatch ([facility]) 04/17/21 04/17/21 04/18/21 17:34 21:50 06:29 WBC 12.0 H RBC 3.14 L D Hgb 11.8 L 9.1 L D Hct 37.7 28.8 L MCV 91.8 MCH 29.1 MCHC 31.7 L RDW 13.3 Plt Count 101 L D MPV 11.3 H Neut % (Auto) 65.7 Lymph % (Auto) 27.2 Door % (Auto) 4.6 Eos % (Auto) 2.1 Baso % (Auto) 0.3 Neut # (Auto) 7.9 H Lymph # (Auto) 3.3 Door # (Auto) 0.6 Eos # (Auto) 0.3 Baso # (Auto) 0.0 PT INR Sodium Potassium Chloride Carbon Dioxide Anion Gap BUN Creatinine Estimated Creat Clear Estimated GFR Est GFR ([facility] Am) Glucose Lactate 2.0 Calcium Magnesium Total Bilirubin AST ALT Alkaline Phosphatase Total Protein Albumin Globulin Albumin/Globulin Ratio Stool Occult Blood SARS-CoV-2 (PCR) Influenza A Untype (PCR) Influenza Type B (PCR) Blood Type Antibody Screen Crossmatch ([facility]) 04/18/21 04/19/21 04/19/21 06:29 05:50 05:50 WBC 8.3 D RBC 2.50 L Hgb 7.4 L D Hct 23.1 L MCV 92.6 MCH 29.5 MCHC 31.8 RDW 13.4 Plt Count 228 D MPV 8.5 Neut % (Auto) 57.8 Lymph % (Auto) 33.7 Door % (Auto) 5.0 Eos % (Auto) 3.4 Baso % (Auto) 0.2 Neut # (Auto) 4.8 Lymph # (Auto) 2.8 Door # (Auto) 0.4 Eos # (Auto) 0.3 Baso # (Auto) 0.0 PT INR Sodium 137 141 Potassium 4.3 3.2 L D Chloride 10
== END 2021-04-20 10:55 | DRG 378 ==
LOC: ER 16:01 → 2ND 04-18 07:14
PROVIDERS: Nurse Practitioner Family; Surgery; Admitting Provider Emergency Medicine; Emergency Provider Emergency Medicine; Visit Provider Emergency Medicine
PROC: 0DJD8ZZ Inspection of Lower Intestinal Tract, Via Natural or Artificial Opening Endoscopic (ICD-10-PCS; principal; 2021-04-19 10:00)
DX: K57.31 Diverticulosis of large intestine without perforation or abscess with bleeding (principal); D62 Acute posthemorrhagic anemia; I11.0 Hypertensive heart disease with heart failure; I50.9 Heart failure, unspecified; F25.9 Schizoaffective disorder, unspecified; Z79.84 Long term (current) use of oral hypoglycemic drugs; E66.9 Obesity, unspecified; Z68.34 Body mass index [BMI] 34.0-34.9, adult; E78.5 Hyperlipidemia, unspecified; F32.9 Major depressive disorder, single episode, unspecified; F41.9 Anxiety disorder, unspecified; M19.90 Unspecified osteoarthritis, unspecified site; Z87.891 Personal history of nicotine dependence; R15.9 Full incontinence of feces
CPT/HCPCS: 45378; 36415; 74177; 80048; 80053; 82272; 83605; 83735; 85014; 85018; 85025; 85610; 86850; 96365; 96375; 99281; G0328; P9016; Q9967; U0003

== ENCOUNTER 2021-04-21 17:18 | Emergency (ER) | payer MEDICARE, MEDICAID, SELFPAY ==
[2021-04-21 17:19] VITALS: BP 147/72; PULSE 103; RESP 20; TEMP 37.1; O2SAT 98; BMI 36.9
[2021-04-21 17:30] VITALS: BP 131/71; PULSE 97; O2SAT 98
--- NOTE | 2021-04-21 17:39 | HMH.EDGENADL ---
ED Disposition Clinical Impression: Lower GI bleed, Diverticulosis Disposition: Home, Self-Care Condition on Discharge: Fair Instructions: DI for Gastrointestinal Bleeding Additional Instructions: You have been evaluated for GI bleed. Likely due to diverticulosis. Bleed appears to be stable. No anemia. Please continue to follow-up with your primary care doctor and gastroenterology. Return to the emergency department for any new or worsening symptoms. Referrals: Provider,Referral, [Primary Care Provider] - Time of Disposition: 20:26 - Critical Care Critical Care Time: No Attestation: On 04/21/21, the high probability of a clinically significant, sudden or life threatening deterioration of the following system(s) required my full and direct attention, intervention and personal management. The time I documented below is in addition to time spent performing reported procedures but includes the following listed in this critical care notation. Medical Decision Making - Medical Records Medical records reviewed: Yes: I reviewed the patient's medical records. - Carlos Inquiry Pt receiving controlled substance: No Vital Signs: 04/21/21 17:19 04/21/21 17:30 04/21/21 18:00 Temperature 98.7 F Temperature Source Oral Pulse Rate 97 H 101 H Pulse Rate [Radial] 103 H Respiratory Rate 20 Blood Pressure 131/71 143/85 H Blood Pressure [Right Arm] 147/72 H Blood Pressure Mean 86 97 Blood Pressure Mean [Right Arm] 97 Blood Pressure Position [Right Arm] Sitting 02 Sat by Pulse Oximetry 98 98 99 Oxygen Delivery Method Room Air 04/21/21 18:30 Temperature Temperature Source Pulse Rate 99 H Pulse Rate [Radial] Respiratory Rate Blood Pressure 136/75 Blood Pressure [Right Arm] Blood Pressure Mean 93 Blood Pressure Mean [Right Arm] Blood Pressure Position [Right Arm] 02 Sat by Pulse Oximetry 99 Oxygen Delivery Method - Lab Data Lab Results 04/21/21 17:22: VBG pH 7.38, VBG pCO2 45.9, VBG pO2 69.8 H, VBG HCO3 26.6, VBG Total CO2 28.0 H, VBG O2 Saturation 93.3 H, VBG Base Excess 1.5 04/21/21 18:00: WBC 10.6, RBC 3.37 L, Hgb 9.9 L, Hct 31.0 L, MCV 92.2, MCH 29.6, MCHC 32.0, RDW 14.5, Plt Count 309 D, MPV 8.6, Neut % (Auto) 62.9, Lymph % (Auto) 29.8, [place] % (Auto) 3.5, Eos % (Auto) 3.4, Baso % (Auto) 0.4, Neut # (Auto) 6.7, Lymph # (Auto) 3.2, [place] # (Auto) 0.4, Eos # (Auto) 0.4, Baso # (Auto) 0.0 04/21/21 18:00: Sodium 143, Potassium 3.2 L, Chloride 106, Carbon Dioxide 29, Anion Gap 11.2, BUN 3 L, Creatinine 0.60, Estimated Creat Clear 95, Estimated GFR 99, Est GFR ( Amer) 120, Glucose 120 H, Calcium 8.9, Total Bilirubin < 0.1 L, AST 28, ALT 15, Alkaline Phosphatase 73, Total Protein 6.3, Albumin 3.1 L, Globulin 3.2, Albumin/Globulin Ratio 1.0 L 04/21/21 18:40: Lactate 3.4 H 04/21/21 18:40: SARS-CoV-2 (PCR) Not detected, Influenza A Untype (PCR) Not detected, Influenza Type B (PCR) Not detected Result diagrams: 04/21/21 18:00 04/21/21 18:00 Orders (Tests/Meds): ORDERS Category Date Time Status Occult Blood,Stool Stat Lab 04/21/21 19:36 Ordered Medical Decision Narrative: In summary this is a 70-year-old female with history of GI bleed and schizophrenia presenting to the emergency department with rectal bleeding. Patient clinically stable on arrival. Vital signs within normal limits. Concern for persistent GI bleed, anemia. Will obtain CBC, BMP. Initial laboratory results are reassuring. Hemoglobin is 9.9, up from 9.2 at discharge yesterday. No elevation in BUN. Creatinine within normal limits. Occult blood is positive. Chart review shows that patient has diverticulosis and has GI bleed frequently. Has had upper and lower endoscopy. Case discussed with her primary care physician, Dr. Rizo. He is well aware of the patient. Given that her labs are reassuring and she is in no distress, stable for outpatient management. He has not had any bowel movements while in
[2021-04-21 18:00] VITALS: BP 143/85; PULSE 101; O2SAT 99
[2021-04-21 18:25] LABS: Basophils % 0.4 % (0.1-2.0); Eosinophils # 0.4 K/mm3 (0.0-0.4); Eosinophils % 3.4 % (0.1-12.0); Hemoglobin 9.9 g/dL (12.2-16.2); Lymphocytes # 3.2 K/mm3 (0.7-4.5); Lymphocytes % 29.8 % (10-50); Mean Corpuscular Hemoglobin 29.6 pg (27.0-31.2); Mean Corpuscular Volume 92.2 fl (81-99); Mean Platelet Volume 8.6 fl (7.4-10.4); Monocytes # 0.4 K/mm3 (0.1-1.0); Monocytes % 3.5 % (1.7-9.3); Neutrophils # 6.7 K/mm3 (1.8-7.8); Neutrophils % 62.9 % (37.0-80.0); Platelet Count 309 K/mm3 (142-424); Red Blood Count 3.37 M/mm3 (4.20-5.40); Red Cell Distribution Width 14.5 % (11.5-17.5); White Blood Count 10.6 K/mm3 (4.8-10.8)
[2021-04-21 18:30] VITALS: BP 136/75; PULSE 99; O2SAT 99
[2021-04-21 18:32] LABS: Chloride 106 mmol/L (98-107)
[2021-04-21 18:33] LABS: Potassium 3.2 mmoL/L (3.5-5.1); Sodium 143 mmol/L (136-145)
[2021-04-21 18:35] LABS: Alanine Aminotransferase 15 U/L (12-78); Alkaline Phosphatase 73 U/L (38-126); Anion Gap 11.2 mEq/L (5-15); Aspartate Amino Transferase 28 U/L (14-36); Blood Urea Nitrogen 3 mg/dl (7-17); Carbon Dioxide 29 mmol/L (22.0-30.0); Creatinine Clearance Estimated 95 mL/min (50-200); Estimated Glomerular Filt Rate 99 ml/min (>60); GFR (African American) 120 ML/MIN (>60)
[2021-04-21 18:36] LABS: Albumin Level 3.1 g/dl (3.5-5.0); Calcium 8.9 mg/dl (8.4-10.2); Globulin 3.2 g/dL (1.3-3.2); Glucose 120 mg/dl (74-100); Total Protein,Serum 6.3 g/dl (6.3-8.2)
[2021-04-21 18:37] LABS: Bilirubin,Total < 0.1 mg/dl (0.2-1.3)
[2021-04-21 18:45] LABS: VBG Base Excess 1.5 mmol/L (-2.4-2.3); VBG HCO3 26.6 mmol/L (23-30); VBG Oxygen Saturation 93.3 % (50-70); VBG PCO2 45.9 mmol/L (35-51); VBG PH 7.38 mmol/L (7.31-7.41); VBG PO2 69.8 mmol/L (28-40)
[2021-04-21 18:59] LABS: Coronavirus 19, PCR Not Detected (NotDetected); Influenza A, PCR Not Detected (NotDetected); Influenza B, PCR Not Detected (NotDetected)
[2021-04-21 19:14] LABS: Lactic Acid 3.4 mmol/L (0.7-2.1)
--- NOTE | 2021-04-21 19:39 | PC.NURSE ---
at bedside for rectal exam
[2021-04-21 21:30] VITALS: BP 130/67; PULSE 104; RESP 20; TEMP 36.7; O2SAT 97
[2021-04-21 22:41] LABS: Reflex Lactic Add Lactic Reflex
== END 2021-04-21 21:30 | disposition home or self-care (01) ==
PROVIDERS: Emergency Provider Emergency Medicine
DX: K92.2 Gastrointestinal hemorrhage, unspecified (principal); F25.9 Schizoaffective disorder, unspecified; F41.8 Other specified anxiety disorders; I10 Essential (primary) hypertension; N28.9 Disorder of kidney and ureter, unspecified; E78.5 Hyperlipidemia, unspecified; Z87.891 Personal history of nicotine dependence; Z79.899 Other long term (current) drug therapy
CPT/HCPCS: 80053; 82803; 83605; 85025; 99284; U0003

== ENCOUNTER → 2022-03-13 11:17 | Outpatient (CLI) | payer MEDICARE, MEDICAID, SELFPAY ==
[2022-03-13 12:10] LABS: Basophils # 0.1 K/mm3 (0-0.2); Basophils % 0.8 % (0.1-2.0); Eosinophils # 0.5 K/mm3 (0.0-0.4); Eosinophils % 4.8 % (0.1-12.0); Hematocrit 43.4 % (37.0-47.0); Hemoglobin 13.7 g/dL (12.2-16.2); Lymphocytes # 2.2 K/mm3 (0.7-4.5); Lymphocytes % 20.1 % (10-50); Mean Corpuscular HGB Conc 31.4 g/dL (31.8-35.4); Mean Corpuscular Hemoglobin 27.8 pg (27.0-31.2); Mean Corpuscular Volume 88.5 fl (81-99); Mean Platelet Volume 8.5 fl (7.4-10.4); Monocytes # 0.6 K/mm3 (0.1-1.0); Monocytes % 5.3 % (1.7-9.3); Neutrophils # 7.6 K/mm3 (1.8-7.8); Neutrophils % 69.1 % (37.0-80.0); Platelet Count 651 K/mm3 (142-424)
[2022-03-13 12:32] LABS: Chloride 96 mmol/L (98-107); Sodium 138 mmol/L (136-145)
[2022-03-13 12:33] LABS: Potassium 4.2 mmoL/L (3.5-5.1)
[2022-03-13 12:35] LABS: Alanine Aminotransferase 25 U/L (12-78); Albumin Level 3.8 g/dl (3.5-5.0); Albumin/Globulin Ratio 0.9 (1.1-1.8); Alkaline Phosphatase 119 U/L (38-126); Anion Gap 12.2 mEq/L (5-15); Aspartate Amino Transferase 33 U/L (14-36); Bilirubin,Total 0.4 mg/dl (0.2-1.3); Blood Urea Nitrogen 12 mg/dl (7-17); Carbon Dioxide 34 mmol/L (22.0-30.0); Estimated Glomerular Filt Rate 83 ml/min (>60); GFR (African American) 100 ML/MIN (>60); Globulin 4.2 g/dL (1.3-3.2); Glucose 131 mg/dl (74-100)
== END ==
PROVIDERS: PCP Emergency Medicine; Visit Provider Emergency Medicine
DX: E11.9 Type 2 diabetes mellitus without complications (principal); Z79.84 Long term (current) use of oral hypoglycemic drugs
CPT/HCPCS: 80053; 85025

== ENCOUNTER 2022-06-13 16:44 | Emergency (ER) | payer MEDICARE, MEDICAID, SELFPAY ==
[2022-06-13 16:44] VITALS: BP 136/78; PULSE 88; RESP 18; TEMP 37.6; O2SAT 99; BMI 38.0
[2022-06-13 17:00] VITALS: BP 137/76; PULSE 92; O2SAT 99
[2022-06-13 17:30] VITALS: BP 130/80; PULSE 98; O2SAT 97
[2022-06-13 18:06] LABS: Alanine Aminotransferase 14 U/L (12-78); Albumin Level 3.3 g/dl (3.5-5.0); Albumin/Globulin Ratio 0.8 (1.1-1.8); Alkaline Phosphatase 124 U/L (38-126); Anion Gap 12.8 mEq/L (5-15); Aspartate Amino Transferase 26 U/L (14-36); Blood Urea Nitrogen 16 mg/dl (7-17); Calcium 9.1 mg/dl (8.4-10.2); Carbon Dioxide 30 mmol/L (22.0-30.0); Chloride 100 mmol/L (98-107); Creatinine Clearance Estimated 105 mL/min (50-200); Estimated Glomerular Filt Rate 99 ml/min (>60); GFR (African American) 120 ML/MIN (>60); Globulin 3.9 g/dL (1.3-3.2); Glucose 115 mg/dl (74-100); Potassium 3.8 mmoL/L (3.5-5.1); Sodium 139 mmol/L (136-145); Total Protein,Serum 7.2 g/dl (6.3-8.2)
[2022-06-13 18:10] LABS: Basophils # 0.1 K/mm3 (0-0.2); Basophils % 0.6 % (0.1-2.0); Eosinophils # 0.4 K/mm3 (0.0-0.4); Eosinophils % 4.6 % (0.1-12.0); Hematocrit 35.9 % (37.0-47.0); Hemoglobin 11.6 g/dL (12.2-16.2); Lymphocytes # 3.5 K/mm3 (0.7-4.5); Mean Corpuscular HGB Conc 32.5 g/dL (31.8-35.4); Mean Corpuscular Hemoglobin 27.2 pg (27.0-31.2); Mean Corpuscular Volume 83.9 fl (81-99); Mean Platelet Volume 8.1 fl (7.4-10.4); Monocytes # 0.3 K/mm3 (0.1-1.0); Monocytes % 3.6 % (1.7-9.3); Neutrophils # 5.1 K/mm3 (1.8-7.8); Neutrophils % 54.2 % (37.0-80.0); Platelet Count 424 K/mm3 (142-424); Red Blood Count 4.28 M/mm3 (4.20-5.40); Red Cell Distribution Width 15.5 % (11.5-17.5); White Blood Count 9.4 K/mm3 (4.8-10.8)
[2022-06-13 18:11] LABS: Bilirubin,Total 0.1 mg/dl (0.2-1.3)
--- NOTE | 2022-06-13 18:40 | PC.NURSE ---
RN AT BEDSIDE FOR RECTAL EXAM [facility]
[2022-06-13 18:58] LABS: Coronavirus 19, PCR Not Detected (NotDetected); Influenza A, PCR Not Detected (NotDetected); Influenza B, PCR Not Detected (NotDetected)
[2022-06-13 19:06] LABS: Occult Blood,Stool Positive (Negative)
--- NOTE | 2022-06-13 19:26 | CT_ITS ---
PROCEDURE INFORMATION: Exam: CT Abdomen And Pelvis With Contrast Exam date and time: 06/13/2022 7:28 PM Age: 71 years old Clinical indication: Other: Rectal bleeding TECHNIQUE: Imaging protocol: Computed tomography of the abdomen and pelvis with contrast. Radiation optimization: All CT scans at this facility use at least one of these dose optimization techniques: automated exposure control; mA and/or kV adjustment per patient size (includes targeted exams where dose is matched to clinical indication); or iterative reconstruction. Contrast material: ISOVUE; Contrast volume: 75 ml; Contrast route: IV; COMPARISON: CT ABDOMEN PELVIS W CON 04/17/2021 3:43 PM FINDINGS: Liver: Normal. No mass. Gallbladder and bile ducts: Normal. No calcified stones. No ductal dilation. Pancreas: Mild pancreatic atrophy. Spleen: Normal. No splenomegaly. Adrenal glands: Normal. No mass. Kidneys and ureters: Low attenuation renal lesions measuring up to 3 mm in diameter are incompletely characterized, but are likely cysts. No followup imaging is warranted. Stomach and bowel: Moderate colonic diverticulosis without diverticulitis. Mild nonspecific colon wall thickening that may represent colitis in the appropriate clinical setting. Appendix: Unremarkable appendix. Intraperitoneal space: Unremarkable. No free air. No significant fluid collection. Vasculature: The arteries demonstrate moderate atherosclerotic disease. Lymph nodes: Unremarkable. No enlarged lymph nodes. Urinary bladder: Mild nonspecific urinary bladder wall thickening. Reproductive: Status post hysterectomy. Bones/joints: There is a left hip effusion with periarticular calcifications that are new compared to prior study. There is fluid in the trochanteric bursa that is new compared to prior study as well. Soft tissues: There is a healed anterior abdominal wall incision. Other findings: Stigmata of old granulomatous disease. IMPRESSION: 1. Moderate colonic diverticulosis without diverticulitis. 2. Mild nonspecific colon wall thickening that may represent colitis in the appropriate clinical setting. 3. There is a left hip effusion with periarticular calcifications that are new compared to prior study. There is fluid in the trochanteric bursa that is new compared to prior study as well. Consider fluid sampling to exclude septic arthritis. 4. Mild nonspecific urinary bladder wall thickening. Please exclude infection. COMMENTS: Consistent with the [employer]'s Incidental Findings Committee white paper (J Am Raúl Radiol 2018): Any incidental renal lesion less than 1 cm or classified as too small to characterize, or any incidental cystic renal lesion characterized as simple-appearing, is likely benign. No follow-up imaging is recommended for these lesions per consensus recommendations based on imaging criteria.
--- NOTE | 2022-06-13 19:27 | HMH.EDGENADL ---
Discharge Plan Disposition Patient Disposition: Home, Self-Care Condition: Good Chief Complaint: GI Bleed Prescriptions Prescriptions: No Action metformin 500 mg tablet 500 mg PO BIDWMEAL atorvastatin 10 mg tablet 10 mg PO HS 30 Days Qty: 30 Label Comments: fluticasone propionate [Flonase Allergy Relief] 50 mcg/actuation spray,suspension 1 spray NOSTRIL-B DAILY paliperidone 3 mg tablet extended release 24hr 3 mg PO DAILY lactulose 10 GM/15 ML solution 30 ml PO DAILYP PRN (Reason: Constipation) furosemide 40 MG tablet 40 mg PO DAILY bisoprolol fumarate 5 MG tablet 5 mg PO HS aluminum hydrox-magnesium carb 355 ML suspension 30 ml PO Q4HP PRN (Reason: Indigestion) multivitamin,tx-minerals 1 EACH tablet 1 each PO DAILY acetaminophen 500 MG tablet 500 mg PO Q6HP PRN (Reason: pain/fever) ferrous sulfate 325 mg (65 mg iron) tablet 2 tab PO DAILY trazodone 100 MG tablet 100 mg PO HS pantoprazole 40 MG tablet,delayed release (DR/EC) 40 mg PO DAILY cetirizine 10 MG tablet 10 mg PO HS ondansetron HCl 4 MG tablet 4 mg PO Q8HP PRN (Reason: Nausea And Vomiting) Austedo 12 mg tablet 12 mg PO DAILY Referrals Follow up/Referrals: Carson Rizo MD [Primary Care Provider] - See instructions Activity Restrictions/Add. Instructions Additional Instructions/Restrictions: Dr. Rizo will follow patient's blood counts and arrange further care. Contact Dr. Rizo if increased amount of bleeding, abdominal pain, fever, vomiting of blood, or low blood pressure. Clinical Impressions Clinical Impression: Diverticular hemorrhage, Effusion of hip joint, left Instructions Patient Instructions: DI for Gastrointestinal Bleeding Discharge ED Provider: Alvaro Danielle General Adult HPI General Chief complaint: GI Bleed Stated complaint: GI Bleed Time Seen by Provider: 06/13/22 18:35 Mode of Arrival: EMS Source of Information: Medical Record Limitations: No Limitations Description of Symptoms (Recalled from ER Triage Doc. by RN): PT SENT FROM [facility] FOR BLOODY STOOLS TODAY. PT WILL ANSWER YES AND NO QUESTIONS. DENIES PAIN History of Present Illness HPI narrative: Patient is brought in by ambulance from [facility]. She is minimally communicative. She will answer yes and no but does not speak otherwise. Her yes no answers appear to be appropriate to the questions asked. She is reportedly having bloody stools today. She denies any pain. She denies vomiting. She denies any other complaints, specifically also denies chest pain or shortness of breath. She has a history of recurrent gastrointestinal bleeding secondary to diverticulosis. Related Data Home Medications Medication Instructions Recorded Confirmed atorvastatin 10 mg tablet 10 mg PO HS Cholesterol 30 days 11/13/17 06/13/22 ##30 cetirizine 10 mg tablet 10 mg PO HS Allergy symptoms 06/18/18 06/13/22 lactulose 10 gram/15 mL oral 30 ml PO DAILYP PRN Constipation 08/09/18 06/13/22 solution fluticasone propionate 50 1 spray NOSTRIL-B DAILY Allergy 02/28/19 06/13/22 mcg/actuation nasal symptoms spray,suspension (Flonase Allergy Relief) aluminum hydrox-magnesium carb 95 30 ml PO Q4HP PRN Indigestion 02/28/20 06/13/22 mg-358 mg/15 mL oral suspension bisoprolol fumarate 5 mg tablet 5 mg PO HS Hypertension 02/28/20 06/13/22 furosemide 40 mg tablet 40 mg PO DAILY diuretic 02/28/20 06/13/22 multivitamin,tx-minerals 1 each PO DAILY Supplement 02/28/20 06/13/22 acetaminophen 500 mg tablet 500 mg PO Q6HP PRN pain/fever 02/29/20 06/13/22 ferrous sulfate 325 mg (65 mg 2 tab PO DAILY Supplement 10/19/20 06/13/22 iron) tablet metformin 500 mg tablet 500 mg PO BIDWMEAL Diabetes 10/19/20 06/13/22 trazodone 100 mg tablet 100 mg PO HS sleep 02/21/21 06/13/22 paliperidone 3 mg tablet,extended 3 mg PO DAILY mood 04/05/21 06/13/22 release 24 hr ondansetr
--- NOTE | 2022-06-13 20:49 | PC.NURSE ---
REPORT CALLED TO JAYDA AT [facility] , SHE IS AWARE THAT DR JEAN-BAPTISTE WILL BE SENDING OUT ADDITIONAL OUTPT ORDERS TOMORROW . DR RICO SPOKE WITH DR JEAN-BAPTISTE REGARDING CT RESULTS HE ADVISED SEND HER BACK AND HE WILL SEND OUTPT ORDERS TOMORROW
--- NOTE | 2022-06-13 21:04 | PC.NURSE ---
[facility] CALLED FOR TRANSPORT
[2022-06-13 21:31] VITALS: BP 127/82; PULSE 91; RESP 16; TEMP 37.2; O2SAT 97
== END 2022-06-13 21:35 | disposition home or self-care (01) ==
PROVIDERS: Emergency Provider Emergency Medicine; PCP Emergency Medicine
DX: K57.31 Diverticulosis of large intestine without perforation or abscess with bleeding (principal); M25.452 Effusion, left hip; Z79.84 Long term (current) use of oral hypoglycemic drugs; Z79.899 Other long term (current) drug therapy; D64.9 Anemia, unspecified; F41.9 Anxiety disorder, unspecified; F32.A Depression, unspecified; I10 Essential (primary) hypertension; E66.9 Obesity, unspecified; F25.9 Schizoaffective disorder, unspecified; I51.7 Cardiomegaly; Z68.38 Body mass index [BMI] 38.0-38.9, adult
CPT/HCPCS: 36415; 74177; 80053; 82272; 85025; 86850; 99284; C9803; G0328; Q9967; U0003; U0005

== ENCOUNTER → 2022-07-13 11:22 | Outpatient (CLI) | payer MEDICARE, MEDICAID, SELFPAY ==
--- NOTE | 2022-07-13 11:29 | XR_ITS ---
FINAL REPORT CLINICAL HISTORY: LT hip pain FINDINGS: Left hip Three views were obtained. There is no acute fracture or dislocation. There are prominent hypertrophic changes of the lateral acetabular margin. There is moderate narrowing of the hip joint spaces bilaterally. The femoral heads demonstrate normal smooth contour. No soft tissue abnormality is identified. IMPRESSION: Degenerative changes as above Reviewed, Interpreted and Dictated by Burak Sanchez MD Transcribed by Johanna Askew Authenticated and [facility]
== END ==
PROVIDERS: PCP Emergency Medicine; Visit Provider Orthopaedic Surgery
DX: M25.552 Pain in left hip (principal)
CPT/HCPCS: 73502

== ENCOUNTER 2024-09-12 20:02 | Outpatient (CLI) | payer MEDICARE, MEDICAID, SELFPAY ==
[2024-09-12 20:17] LABS: Microscopic, Urine URINE MICROSCOPIC (MICROSCOPIC)
[2024-09-12 20:26] LABS: Appearance,Urine Slightly Cloudy (Clear); Bilirubin,Urine Negative (Negative); Blood, Urine TRACE-I (Negative); Color,Urine YELLOW (Yellow); Glucose,Urine (UA) Negative (Negative); Ketones,Urine Negative (Negative); Leukocyte Esterase,Urine 3+ (Negative); Nitrate,Urine POSITIVE (Negative); Protein,Urine Negative (Negative)
[2024-09-12 20:37] LABS: Bacteria,Urine 3+ /lpf; Squamous Epithelial Cell,Urine Occasional #/hpf (0-5); WBC,Urine 50-100 #/hpf (0-3)
== END 2024-09-12 23:59 | disposition home or self-care (01) ==
LOC: LAB.DROPOF 20:03
PROVIDERS: PCP Family Medicine; Visit Provider Family Medicine
DX: N39.0 Urinary tract infection, site not specified (principal); B96.20 Unspecified Escherichia coli [E. coli] as the cause of diseases classified elsewhere
CPT/HCPCS: 81001; 87086; 87088; 87186

== ENCOUNTER 2024-11-26 07:55 | Outpatient (CLI) | payer MEDICARE, MEDICAID, SELFPAY | END 2024-11-26 23:59 | disposition home or self-care (01) | PROVIDERS: PCP Nurse Practitioner Family; Visit Provider Nurse Practitioner Family | DX: E87.6 Hypokalemia (principal) | CPT/HCPCS: 36415 ==

== ENCOUNTER 2024-11-28 07:09 | Outpatient (CLI) | payer MEDICARE, MEDICAID, SELFPAY ==
[2024-11-28 07:29] LABS: Potassium 4.4 mmoL/L (3.5-5.1)
[2024-11-28 07:40] LABS: Hemoglobin A1C 5.7 % (4.0-6.0)
== END 2024-11-28 23:59 | disposition home or self-care (01) ==
PROVIDERS: PCP Nurse Practitioner Family; Visit Provider Nurse Practitioner Family
DX: E11.9 Type 2 diabetes mellitus without complications (principal)
CPT/HCPCS: 36415; 83036; 84132

== ENCOUNTER 2025-01-23 07:07 | Outpatient (CLI) | payer MEDICARE, MEDICAID, SELFPAY ==
--- OUTSIDE RECORDS SUMMARY | 2025-01-23 07:10 | XMS_ITS | Clinical Summary ---
Author Organization [facility] Address [address] [place] [address] Phone Care Team Providers Care Perch Machine Inspector Name Role Phone Unavailable Primary Care Provider Unavailabl e Allergies No known active allergies Medications * This document contains information received from the source organization and may not represent a complete record from that organization. No known medications Active Problems No known active problems Medical History Medical History Date Comments Hyperlipidemia Hypokalemia Hypertension Personal history of malignant neoplasm of breast Acquired absence of right breast and nipple Depression Social History Tobacco Use Types Packs/Day Years Used Date Smoking Tobacco: Former Cigarettes Smokeless Tobacco: Never Tobacco Cessation:Counseling Given: No Alcohol Use Standard Drinks/Week Comments No 0 (1 standard drink = 0.6 oz pur e alcohol) Comments Unknown Sex and Gender Information Value Date Recorded Sex Assigned at Not on file Legal Sex Female 3:57 AM EDT Gender Identity Not on file Sexual Orientation Not on file Obstetrics History Plan of Treatment Health Maintenance Due Date Last Done Comments Wellness Exam Medicare [birth year]21/1953 Hepatitis C Screening 10/21/1969 DTaP/TDaP/Td (1 - Tdap) 10/21/1970 Breast Cancer Screening 1991 Cologuard 10/21/1996 Colon Cancer Screening 10/21/1996 Colonoscopy 10/21/1996 FIT 10/21/1996 Sigmoidoscopy 10/21/1996 Virtual Colonography 10/21/1996 Pneumococcal Vaccine 50+ (1 of 1 - PCV) 10/21/2001 Zoster (1 of 2) 10/21/2001 Bone Density Screening 10/21/2016 COVID-19 Vaccine (2023-2 5 season) 2024 Influenza Vaccine (Season Ended) 2025 Hepatitis B Vaccine Aged Out No longe r eligible based on patient's age to complete this topic Meningococcal B Vaccine Aged Out No l onger eligible based on patient's age to complete this topic Insurance MED[place] PART B [id number] [place] [address] [place]ID [place] B
--- OUTSIDE RECORDS SUMMARY | 2025-01-23 07:10 | XMS_ITS | Clinical Summary ---
Author Organization Healthcare Address [address] [place] [address] Care Team Providers Care Hand I Cutter Name Role Phone Carson Rizo MD Primary Care Provider + [phone] Social History Tobacco Use Types Packs/Day Years Used Date Smoking Tobacco: Never Alcohol Use Standard Drinks/Week Comments No 0 (1 standard drink = 0.6 oz pur e alcohol) Comments Unknown Sex and Gender Information Value Date Recorded Sex Assigned at Not on file Legal Sex Female 7:08 PM EDT Gender Identity Not on file Sexual Orientation Not on file Last Filed Vital Signs Vital Sign Reading Time Taken Comments Blood Pressure 131/67 10/24/2018 1:43 PM EDT Pulse 85 10/24/2018 1:43 PM EDT Temperature 36.8 C (98.2 F) 10/24/2018 1:43 PM EDT Respiratory Rate - - Oxygen Saturation - - Inhaled Oxygen Concentration - - Weight - - Height - - Body Mass Index - - Plan of Treatment Not on file Care Teams Hand I Cutter Relationship Specialty Start Date End Date Carson Rizo MD [address] [phone] PCP - General 12/24/20
[2025-01-23 08:20] LABS: Estimated Glomerular Filt Rate 82 ml/min (>60); GFR (African American) 99 ML/MIN (>60)
== END 2025-01-23 23:59 | disposition home or self-care (01) ==
PROVIDERS: PCP Nurse Practitioner Family; Visit Provider Nurse Practitioner Family
DX: I10 Essential (primary) hypertension (principal); I49.9 Cardiac arrhythmia, unspecified
CPT/HCPCS: 36415; 82565

== ENCOUNTER 2025-02-04 07:48 | Outpatient (CLI) | payer MEDICARE, MEDICAID, SELFPAY ==
--- OUTSIDE RECORDS SUMMARY | 2025-02-04 07:51 | XMS_ITS | Clinical Summary ---
Author Organization [facility] Address [address] [place] [address] Care Team Providers Care Toll Bridge Attendant Name Role Phone Carson Rizo MD Primary Care Provider + [phone] Social History Tobacco Use Types Packs/Day Years [...] of Treatment Not on file Care Teams Toll Bridge Attendant Relationship Specialty Start Date End Date Carson Rizo MD [address] [phone] PCP - General 12/24/20
--- OUTSIDE RECORDS SUMMARY | 2025-02-04 07:51 | XMS_ITS | Clinical Summary ---
Author Organization [facility] Address [address] [place] [address] Phone Care Team Providers Care Coupon Redemption Clerk Name Role Phone Unavailable Primary Care Provider [...] Insurance [place] B [id number] [place] [address] [place] B
[2025-02-04 08:39] LABS: Basophils # 0.1 K/mm3 (0-0.2); Basophils % 0.8 % (0.1-2.0); Eosinophils # 0.4 Kmm3 (0.0-0.4); Eosinophils % 5.6 % (0.1-12.0); Hematocrit 37.2 % (37.0-47.0); Hemoglobin 11.3 g/dL (12.2-16.2); Immature Granulocytes # 0.02 10^3uL; Immature Granulocytes % 0.3 %; Lymphocytes # 2.6 K/mm3 (0.7-4.5); Lymphocytes % 38.5 % (10-50); Mean Corpuscular HGB Conc 30.4 g/dL (31.8-35.4); Mean Corpuscular Hemoglobin 27.4 pg (27.0-31.2); Mean Corpuscular Volume 90.1 fl (81-99); Mean Platelet Volume 10.6 fl (7.4-10.4); Monocytes # 0.6 K/mm3 (0.1-1.0); Monocytes % 8.9 % (1.7-9.3); Neutrophils # 3.1 K/mm3 (1.8-7.8); Neutrophils % 45.9 % (37.0-80.0); Nucleated Red Blood Cells # 0 10^3/uL; Nucleated Red Blood Cells % 0 %; Platelet Count 278 K/mm3 (142-424); Red Blood Count 4.13 M/mm3 (4.20-5.40); Red Cell Distribution Width 13.5 % (11.5-17.5); Red Cell Distribution Width-SD 44.7 fL; White Blood Count 6.7 K/mm3 (4.8-10.8)
[2025-02-04 08:42] LABS: Albumin Level 3.8 g/dl (3.5-5.0); Chloride 101 mmol/L (98-107); Sodium 141 mmol/L (136-145)
[2025-02-04 08:43] LABS: Potassium 3.9 mmoL/L (3.5-5.1)
[2025-02-04 08:45] LABS: Alanine Aminotransferase 11 U/L (12-78); Albumin/Globulin Ratio 1.2 (1.1-1.8); Alkaline Phosphatase 93 U/L (38-126); Anion Gap 11.9 mEq/L (5-15); Aspartate Amino Transferase 20 U/L (14-36); Bilirubin,Total 0.2 mg/dl (0.2-1.3); Blood Urea Nitrogen 10 mg/dl (7-17); Carbon Dioxide 32 mmol/L (22.0-30.0); Cholesterol 135 mg/dl (140-200); Estimated Glomerular Filt Rate 70 ml/min (>60); GFR (African American) 85 ML/MIN (>60); Globulin 3.3 g/dL (1.3-3.2); Total Protein,Serum 7.1 g/dl (6.3-8.2); Triglycerides 127 mg/dl (30-150); VLDL Cholesterol 25 mg/dL (0-40)
[2025-02-04 08:46] LABS: Calcium 9.2 mg/dl (8.4-10.2); Chol/HDL Ratio 3.1 (1-3.5); Glucose 87 mg/dl (74-100); HDL Cholesterol 44 mg/dl (40-60)
[2025-02-04 08:57] LABS: Direct LDL Cholesterol 56.09 mg/dL (100-129)
== END 2025-02-04 23:59 | disposition home or self-care (01) ==
PROVIDERS: PCP Family Medicine; Visit Provider Nurse Practitioner Family
DX: E78.5 Hyperlipidemia, unspecified (principal); Z13.220 Encounter for screening for lipoid disorders; Z13.228 Encounter for screening for other metabolic disorders; Z13.0 Encounter for screening for diseases of the blood and blood-forming organs and certain disorders involving the immune mechanism
CPT/HCPCS: 36415; 80053; 80061; 85025